=== PATIENT | female | born 1965 | race Caucasian/White ===

== ENCOUNTER 2019-07-26 17:41 | Emergency (ER) | payer BC, SELFPAY ==
--- NOTE | ~2019-07-26 | XR_ITS ---
EXAMINATION: XR chest 2V DATE: 07/26/2019 18:04 INDICATION: 10 days of nonproductive cough TECHNIQUE: PA and lateral views of the chest were obtained. COMPARISON: Chest radiograph dated 06/19/2017 FINDINGS: The lungs are clear with no focal airspace opacities, pulmonary edema, pleural effusion or pneumothor ax. The cardiomediastinal silhouette is normal. Cholecystectomy clips in the right upper quadrant. Ad justable gastric banding procedure in expected position in the left epigastric region. Suture anchors likely related to rotator cuff repair at the right humeral head. Couple surgical clips at the base o f the neck adjacent to indication for anterior spinal fusion at the lower cervical spine. IMPRESSION: 1. No acute cardiopulmonary disease. 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
[2019-07-26 17:50] VITALS: BP 128/82; PULSE 108; RESP 20; TEMP 36.8; O2SAT 100
--- NOTE | 2019-07-26 17:51 | ED.URI ---
HPI - URI/Sore Throat General Chief Complaint: Upper Respiratory Infection Stated Complaint: cough/congestion Time Seen by Provider: 07/26/19 17:51 Source: patient Mode of arrival: ambulatory Limitations: no limitations History of Present Illness HPI Narrative: Vanesa Luna is a 54 yo female with a PMH of HTN, diabetes, who comes to express care with complaints of cough and muscle pain. States was ill 10 days ago and started he a little better but now has relapsed and is taking Mucinex NyQuil and ibuprofen with no effect Related Data Home Medications Medication Instructions Recorded Confirmed amitriptyline 10 mg DAILY 07/26/19 07/26/19 atorvastatin 40 mg DAILY 07/26/19 07/26/19 canagliflozin [Invokana] 300 mg DAILY 07/26/19 07/26/19 escitalopram oxalate 20 mg DAILY 07/26/19 07/26/19 gabapentin 300 mg TID 07/26/19 07/26/19 glipizide 14 mg DAILY 07/26/19 07/26/19 levothyroxine 88 mcg DAILY 07/26/19 07/26/19 omeprazole 20 mg DAILY 07/26/19 07/26/19 quinapril 10 mg DAILY 07/26/19 07/26/19 triamterene-hydrochlorothiazid 1 cap DAILY 07/26/19 07/26/19 Allergies Allergy/AdvReac Type Severity Reaction Status Date / Time codeine Allergy Mild Verified 05/09/17 13:46 clarithromycin Allergy Unknown Verified 11/27/18 10:40 metformin Allergy Unknown Verified 11/27/18 10:40 Review of Systems Review of Systems: Narrative: CONSTITUTIONAL: Denies fever, chills, sweats. EYES: Denies visual changes, redness, discharge. ENT: Has rhinorrhea, congestion, sore throat, no otalgia. CARDIOVASCULAR: Denies chest pain, palpitations, edema. RESPIRATORY: Denies dyspnea, wheezing, has cough GASTROINTESTINAL: Denies abdominal pain, nausea, vomiting, diarrhea. GENITOURINARY: Denies dysuria, hematuria, abnormal discharge SKIN: Denies rash or itching. NEUROLOGIC: Denies numbness, or focal weakness. PSYCHIATRIC: Denies anxiety or depression. FORMERLY [facility], 1928–1983 Family History Family History Sibling Diabetes mellitus Mother Hypertension Father Family history of malignant neoplasm Social History Social History (Updated 07/26/19 @ 18:02 by Kimberli Stevenson CNP) Smoking status: Never smoker Alcohol intake: current Gender identity (if verbalized by the patient): Female Comments At time of signature, I agree with nursing past medical, surgical, social and family history. There is no relevant family history pertinent to the presenting complaint. Exam Narrative: Exam Narrative: GENERAL: This is a well-nourished, well-developed patient, in mild distress. HEAD: normocephalic, atraumatic. EYES:Sclera clear/white. Vision is grossly intact. EARS: External ears normal, . Hearing grossly intact. NOSE: External nose normal with no obvious nasal discharge, nares without redness, no rhinorrhea. THROAT: Mucous membranes moist, posterior pharynx erythema with swelling NECK: Neck supple, non-tender without lymphadenopathy, CARDIOVASCULAR: Regular rate and rhythm without murmurs, gallops, or rubs. RESPIRATORY: Coarse to auscultation. Breath sounds equal bilaterally. Mildly wheezes, rales, or rhonchi. Dry hacking cough GASTROINTESTINAL: Abdomen soft, non-tender, SKIN: warm, intact with no suspicious lesions or rash, good texture and turgor. NEURO: awake, alert, and oriented to person, place and time. There were no obvious focal neurologic abnormalities. Steady gait EXTREMITIES: Normal range of motion. No edema. BACK: Nontender without deformity . Course Course Emergency Course: Chest x-ray Flu swab Vital Signs Vital signs: Vital Signs Temperature 98.2 F 07/26/19 17:50 Pulse Rate 108 H 07/26/19 17:50 Respiratory Rate 07/26/19 17:50 Blood Pressure 128/82 07/26/19 17:50 Pulse Oximetry 100 07/26/19 17:50 Temperature 98.2 F 07/26/19 17:50 Pulse Rate 108 H 07/26/19 17:50 Respiratory Rate 07/26/19 17:50 Blood Pressure 128/82 07/26/19 17:50 Pulse Oximetry 1
== END 2019-07-26 18:30 | disposition home or self-care (01) ==
PROVIDERS: Emergency Provider Nurse Practitioner
DX: J06.9 Acute upper respiratory infection, unspecified (principal); E78.00 Pure hypercholesterolemia, unspecified; I10 Essential (primary) hypertension; K21.9 Gastro-esophageal reflux disease without esophagitis; E11.9 Type 2 diabetes mellitus without complications; F41.9 Anxiety disorder, unspecified; F32.9 Major depressive disorder, single episode, unspecified
CPT/HCPCS: 71046; 87804; 99213; G0463

== ENCOUNTER → 2020-12-13 12:27 | Outpatient (CLI) | payer BC, SELFPAY ==
--- NOTE | ~2020-12-13 | MR_ITS ---
EXAMINATION: MR thoracic spine wo con EXAM DATE: 12/13/2020 13:43 INDICATION: Acute right sided thoracic back pain . TECHNIQUE: Multi-sequential, multiplanar MR images of the thoracic spine were obtained without contra st. Sagittal T1, T2, T2 fat saturation, axial T2 weighted images reviewed. There is no prior study for comparison. FINDINGS: Mild diffuse thoracic disc disease. The central canal and neural foramen are widely patent. There are no suspicious marrow signal abnormalities. Paraspinal soft tissue is unremarkable. The chad tebral bodies are aligned in the AP dimension. Mild thoracic facet arthropathy. Lower cervical interb ramy device. IMPRESSION: Mild thoracic spondylosis. No acute findings. Reviewed, dictated and finalized at location A.
== END ==
PROVIDERS: PCP Nurse Practitioner Family; Visit Provider Pediatrics
DX: M47.894 Other spondylosis, thoracic region (principal)
CPT/HCPCS: 72146

== ENCOUNTER 2022-07-13 14:47 | Emergency (ER) | payer OTHER, BC, SELFPAY ==
--- NOTE | ~2022-07-13 | XR_ITS ---
EXAMINATION: XR knee RT min 4V DATE: 07/13/2022 15:22 INDICATION: Right knee pain TECHNIQUE: Four views of the right knee were obtained. COMPARISON: None. FINDINGS: Alignment is normal. No fracture or osteochondral lesion. There is mild tricompartmental os teoarthritis characterized by tiny marginal osteophytes. There is mild chondrocalcinosis of the menis ci. Soft tissues are unremarkable. IMPRESSION: 1. No acute osseous abnormality. Reviewed, dictated and finalized at location A. 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
[2022-07-13 15:00] VITALS: BP 122/88; PULSE 98; RESP 18; TEMP 36.3; O2SAT 98
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
== END 2022-07-13 15:37 | disposition home or self-care (01) ==
PROVIDERS: Emergency Provider Nurse Practitioner Family; PCP Nurse Practitioner Family
DX: M25.561 Pain in right knee (principal); E11.9 Type 2 diabetes mellitus without complications; I10 Essential (primary) hypertension; Z79.4 Long term (current) use of insulin
CPT/HCPCS: 73564; 99213; G0463

== ENCOUNTER 2023-12-03 10:42 | Outpatient (CLI) | payer BC, SELFPAY ==
--- NOTE | ~2023-12-03 | US_ITS ---
EXAMINATION: US thyroid DATE: 12/03/2023 10:58 INDICATION: Goiter. TECHNIQUE: Multiple ultrasound images of the thyroid were obtained. COMPARISON: None. FINDINGS: The right thyroid lobe measures 4.6 x 1.8 x 1.3 cm. The left thyroid lobe measures 4.4 x 1.5 x 1.2 c m. There is a 3 mm nodule in right thyroid lobe. IMPRESSION: 1. Small nodule in right thyroid lobe, likely not clinically significant. No follow-up is needed. Reviewed, dictated and finalized at location E. IMPRESSION: 1. Small nodule in right thyroid lobe, likely not clinically significant. No fo llow-up is needed.
== END 2023-12-03 10:43 ==
LOC: MICIMG 10:43
PROVIDERS: PCP Internal Medicine; Visit Provider Internal Medicine
DX: E04.1 Nontoxic single thyroid nodule (principal)
CPT/HCPCS: 76536

== ENCOUNTER 2024-08-14 12:34 | Outpatient (CLI) | payer BC, SELFPAY ==
--- NOTE | ~2024-08-14 | MR_ITS ---
MRI of the right shoulder Technique: Axial proton-density fat-sat images, coronal proton density fat-sat and T2 fat-sat images, and sagittal T1-weighted and T2 fat-sat images were acquired. Clinical History: Pain Findings: Prior subacromial decompression and/or resection of the distal clavicle. Coracoclavicular a nd coracohumeral ligaments appear intact. Coracoacromial ligament probably intact. Suture anchors the humeral head are compatible prior rotator cuff repair surgery. There are complete, full-thickness tears of the entire supraspinatus and infraspinatus tendons, which are retracted to t he medial humeral head. Fluid-filled gap measures up to approximately 4.0 x 4.2 cm in extent. The ret racted infraspinatus tendon is markedly hyperintense and frayed Subscapularis tendon is intact with m ild tendinosis. Tendon of the long head of the biceps is intact. No definite labral tear seen. Inferior glenohumeral ligament is intact. Humeral head is mildly high riding. There is glenohumeral j oint effusion, with fluid passing through the large rotator cuff defect into the subacromial/subdelto id bursa. There is minimal chondromalacia of the humeral head. No muscle atrophy evident. Impression: Complete, full-thickness tears of the supraspinatus and infraspinatus tendons, as detailed above. Melly dence of prior rotator cuff repair surgery with suture anchors at the humeral head. Prior subacromial decompression and/or distal clavicular resection. Reviewed, dictated and finalized at location . Impression: Complete, full-thickness tears of the supraspinatus and infraspinatus tendons, as detailed above. Evidence of prior rotator cuff repair surgery with suture an chors at the humeral head. Prior subacromial decompression and/or distal clavicular resection.
== END 2024-08-14 12:35 | disposition home or self-care (01) ==
PROVIDERS: PCP Orthopaedic Surgery; Visit Provider Orthopaedic Surgery
DX: M75.121 Complete rotator cuff tear or rupture of right shoulder, not specified as traumatic (principal)
CPT/HCPCS: 73221

== ENCOUNTER 2024-09-22 11:12 | Emergency (ER) | payer OTHER, BC, SELFPAY ==
--- NOTE | ~2024-09-22 | CT_ITS ---
CT lumbar spine wo con Ordering provider: Kasey Sam History: 59 years Female with . low back pain, fall . Comparison: None. Technique: CT lumbar spine without contrast. Automated exposure control and iterative reconstruction technique were employed. The dose-length product was 1131.73 mGy-cm. FINDINGS: VERTEBRAE: Normal height and alignment. No subluxation or visible acute fracture. Postoperative fisher es at the level of L4-L5. Cemented is seen in the area of the disc space with vacuum phenomena. Degen erative changes of the spine. DISC SPACES: Narrowing of the disc L5-S1 and L4-L5. Facet joint disease at the level of L2-L3. Bilateral facet joint disease at the level of L3-L4. T12-L1: No stenosis. L1-L2: No stenosis. L2-L3: No stenosis. Mild diffuse disc bulge. L3-L4: No stenosis. Mild diffuse disc bulge. L4-L5: Mild spinal canal stenosis secondary to broad based disc bulge, facet arthropathy, and ligame ntum flavum hypertrophy. L5-S1: No stenosis. PARASPINOUS SOFT TISSUES: Mild atheromatous disease of the abdominal aorta. IMPRESSION: Multilevel degenerative disc disease. No acute osseous abnormality. Reviewed, dictated and finalized at location A.
--- NOTE | ~2024-09-22 | CT_ITS ---
CT brain wo con Ordering provider: Kasey Sam PA-C History: 59 years Female with . headache, head injury . Comparison: None. Technique: CT of the head without contrast. Radiation reduction technique utilized.The dose-length pr oduct was 605.33 mGy-cm. FINDINGS: BRAIN PARENCHYMA AND CSF SPACES: Mild leukoaraiosis and diffuse cortical atrophy. Mild atheromatous d isease. No midline shift, mass effect or hemorrhage. The brain parenchyma and CSF spaces are otherwi se normal. VISUALIZED PARANASAL SINUSES: Well aerated. MASTOIDS: Well aerated. BONES: The bones appear intact. SOFT TISSUES: Visualized nasopharynx is normal. Superficial soft tissues are normal. IMPRESSION: No acute intracranial findings. Reviewed, dictated and finalized at location A.
[2024-09-22 11:31] VITALS: BP 140/79; PULSE 96; RESP 19; TEMP 36.6; O2SAT 100
--- OUTSIDE RECORDS SUMMARY | 2024-09-22 13:08 | XMS_ITS | Encounter Summary ---
Author Organization [facility] Address [address] [place] [id number] Care Team Providers Care Superintendent Distribution Name Role Phone Ulisses Minor MD Primary Care Provide r Ulisses Minor MD Primary Care Provide r Ulisses Minor MD Primary Care Provide r Ulisses Minor MD Primary Care Provide r Encounter Details Date Type Department Care Team (Late st Contact Info) Description 12/29/[address] [facility] Conversion , Generic Conversion, Social History Tobacco Use Types Packs/Day Years Used Date Smoking Tobacco: Never Assessed Comments Unknown Sex and Gender Information Value Date Recorded Sex Assigned at Female 08/11/2024 9:45 AM CDT Legal Sex Female 8:33 PM CDT Gender Identity Not on file Sexual Orientation Not on file documented as of this encounter Plan of Treatment Not on file documented as of this encounter Visit Diagnoses Not on filedocumented in this encounter Additional Health Concerns Infection Onset Date Last Indicated Resolved Time Influenza - Seasonal 07/13/2023 07/13/2023 024 12:32 AM AUTHORIZATION COORDINATOR documented as of this encounter Care Teams Superintendent Distribution Relationship Specialty [place] [address] [place] [id number] PCP - General 12/12/16 [place] [address] [place] [address] PCP - General 12/07/16 12/11/16 [place] [address] [place] [id number] PCP - General 08/22/16 12/06/16 [place] [address] [place] [id number] PCP - General 07/17/16 08/21/16 documented as of this encounter
--- OUTSIDE RECORDS SUMMARY | 2024-09-22 13:08 | XMS_ITS | Encounter Summary ---
Author Organization [facility] Address [address] [place] [address] Care Team Providers Care B2B Sales Professional Name Role Phone Ulisses Minor MD Primary Care Provide r Encounter Details Date Type Department Care Team (Late st Contact Info) Description 08/14/2024 [facility] Message [place] [id number] [place] [address] [facility] Provider Prednisone Social History Tobacco Use Types Packs/Day Years Used Date Smoking Tobacco: Never Passive Smoke Exposure: Past Smokeless Tobacco: Never Alcohol Use Standard Drinks/Week Comments Not Currently 0 (1 standard drink = 0.6 oz pur e alcohol) rarely PHQ-2 Answer Date Recorded Patient Health Questionnaire-2 Score 0 08/11/2024 Comments No Sex and Gender Information Value Date Recorded Sex Assigned at Female 08/11/2024 9:45 AM CDT Legal Sex Female 8:33 PM CDT Gender Identity Not on file Sexual Orientation Not on file documented as of this encounter Functional Status * RETIRED Are you deaf or do you have serious difficulty hearing Answer Date of Assessment Author Status No 05/10/2020 5:51 PM MILITARY EDUCATION COORDINATOR Activ e * RETIRED Are you blind or do you have serious difficulty seeing, even when wearing glasses? Answer Date of Assessment Author Status No 05/10/2020 5:51 PM MILITARY EDUCATION COORDINATOR Activ e * Do you have serious difficulty walking or climbing stairs? Answer Date of Assessment Author Status No 05/10/2020 5:51 PM MILITARY EDUCATION COORDINATOR MensingSavita RN Active * Do you have difficulty dressing or bathing? Answer Date of Assessment Author Status No 05/10/2020 5:51 PM Savita Martínez RN Active * Because of a physical, mental, or emotional condition, do you have difficulty doing errands alone such as visiting a doctor's office or shopping? Answer Date of Assessment Author Status No 05/10/2020 5:51 PM Savita Martínez RN Active documented as of this encounter Mental Status * Because of a physical, mental, or emotional condition, do you have serious difficulty concentrating, remembering, or making decisions? Answer Entry Date Author Status No 05/10/2020 5:51 PM Savita Martínez RN Active documented in this encounter Plan of Treatment Not on file documented as of this encounter Visit Diagnoses Not on filedocumented in this encounter Additional Health Concerns Assessment Noted Time PHQ-9 Depression Total Score: 0 08/13/19 22 10:52 AM CDT documented as of this encounter Care Teams B2B Sales Professional Relationship Specialty [place] [address] [facility] [address] [place] [id number] PCP - General 12/12/16 documented as of this encounter
--- OUTSIDE RECORDS SUMMARY | 2024-09-22 13:08 | XMS_ITS | Encounter Summary ---
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
--- OUTSIDE RECORDS SUMMARY | 2024-09-22 13:08 | XMS_ITS | Clinical Summary ---
Author Organization [facility] Address [address] [place] [id number] Care Team Providers Care Learning Development Specialist Name Role Phone Ulisses Minor MD Primary Care Provide r Allergies Active Allergy Reactions Criticality Noted Date Comments Clarithromycin Diarrhea,Nausea and Vomiting Clarithromycin Diarrhea,Nausea and Vomiting Low Gatifloxacin Diarrhea,Nausea and Vomiting Low 12/19 Metformin Diarrhea,Nausea and Vomiting,Unknown 12/20/2015 Medications multivitamin tablet Take 1 tablet by mouth daily. Active acetaminophen 325 MG tablet Take 2 tablets (650 mg total) by mouth every 4 (four) hours as needed for Fever. 30 tablet 020 Active Blood Glucose Monitoring Suppl (ONE TOUCH ULTRA 2) w/Device KitIndications:T ype 2 diabetes mellitus with hyperglycemia, with long-term current use of insulin ([facility]) 1 each by Does not apply route daily. 1 kit 022 Active Insulin Pen Needle (PEN NEEDLES) 31G X 8 MM MiscIndications: Type 2 diabetes mellitus with diabetic polyneuropathy, with long-term current use of insulin ([facility]) 1 each by Does not apply route 4 (four) times a day. 400 each 3 022 Active triamcinolone 0.1 % cream as needed. 022 Active albuterol sulfate HFA 108 (90 Base) MCG/ACT inhalerIndicatio ns:Acute bronchitis, unspecified organism Inhale 2 puffs into the lungs every 4 (four) hours as needed for Wheezing. 18 g 2 023 Active cyclobenzaprine (FLEXERIL) 10 MG tabletIndication s:Spinal stenosis of lumbar region with neurogenic claudication Take 1 tablet (10 mg total) by mouth 3 (three) times daily as needed. 90 tablet 3 023 Active fluticasone propionate (FLONASE) 50 MCG/ACT nasal sprayIndications :Nasal congestion 2 sprays by Nasal route daily. 16 g 11 024 Active HYRIMOZ 40 MG/0.4ML Solution Auto-injector every 14 (fourteen) days. 024 Active methotrexate (TREXALL) 2.5 MG tablet Take 3 tablets (7.5 mg total) by mouth once a week. 024 Active traMADol (ULTRAM) 50 MG tabletIndication s:Spinal stenosis of lumbar region with neurogenic claudication TAKE 1 TABLET BY MOUTH EVERY 6 HOURS NEEDED FOR CHRONIC PAIN 60 tablet 3 024 Active Additional Information Patient not taking.Reported on 09/10/2024 atorvastatin (LIPITOR) 40 MG tabletIndication s:Mixed hyperlipidemia take 1 tablet by mouth every day 90 tablet 3 024 Active omeprazole (PRILOSEC) 20 MG capsuleIndicatio ns:Gastroesophag eal reflux disease without esophagitis take 1 capsule by mouth every day 90 capsule 3 024 Active triamterene-hydr oCHLOROthiazide (DYAZIDE) 37.5-25 MG capsuleIndicatio ns:Essential hypertension take 1 capsule by mouth every day 90 capsule 2 024 Active TOUJEO SOLOSTAR 300 UNIT/ML Solution Pen-injectorIndi cations:Type 2 diabetes mellitus with diabetic polyneuropathy, with long-term current use of insulin (CMS/HCC HHS/HCC) INJECT 90 UNITS INTO THE SKIN NIGHTLY AT BEDTIME. 27 mL 3 024 Active lisinopril (PRINIVIL) 10 MG tabletIndication s:Essential hypertension take 1 tablet by mouth every day 90 tablet 3 024 Active escitalopram (LEXAPRO) 20 MG tabletIndication s:Anxiety state TAKE 1 TABLET BY MOUTH EVERY DAY 90 tablet 1 024 Active Insulin Aspart (NOVOLOG IJ) Inject 3 mLs as directed. Sliding scale Active levothyroxine (SYNTHROID) 88 MCG tabletIndication s:Acquired hypothyroidism TAKE 1 TABLET BY MOUTH EVERY DAY IN THE MORNING 90 tablet 1 024 Active amitriptyline (ELAVIL) 25 MG tabletIndication s:Primary insomnia Take 1 tablet (25 mg total) by mouth nightly at bedtime. 90 tablet 3 024 Active hydroxychloroqui ne (PLAQUENIL) 200 MG tabletIndication s:Rheumatoid arthritis with rheumatoid factor of right hand without organ or systems involvement ([facility]) TAKE 1 TABLET BY MOUTH TWICE A DAY 180 tablet 1 025 Active HYDROcodone-acet aminophen (NORCO) 5-325 MG tabletIndication s:Acute Pain < 3 Day Supply Take 1 tablet by mouth every 6 (six) hours as needed for Pain. Indications: Acute Pain < 3 Day Supply 10 tablet 025 Active Additional Information Patient not taking.Reported on 09/10/2024 MOUNJARO 12.5 MG/0.5ML injection 12.5 MG (0.5 ML) SUBCUTANEOUSLY WEEKLY 025 Active HYDROcodone-acet aminophen (NORCO) 5-325 MG tabletIndication s:Acute Pain < 7 Day Supply Take 1 tablet by mouth every 4 (four) hours as needed for Pain. Indications: Acute Pain < 7 Day Supply 40 tablet 025 Active Additional Information Patient not taking.Reported on 09/10/2024 naloxone (NARCAN) 4 MG/0.1ML nasal sprayIndications :Acute pain of right shoulder 1 spray by Nasal route as needed for Opioid reversal. may repeat every 2 to 3 minutes in alternating nostrils until medical assistance becomes available 1 each 025 2025 Active Additional Information Patient not taking.Reported on 09/10/2024 guaiFENesin-code ine (GUAIFENESIN AC) 100-10 MG/5ML syrupIndications :Bronchitis Take 5 mLs by mouth every 4 (four) hours as needed for Cough. Indications: Bronchitis 240 mL 025 Active folic acid (FOLVITE) 1 MG tablet Take 1 tablet (1 mg total) by mouth daily. Active ONETOUCH ULTRA test stripIndications :Type 2 diabetes mellitus with diabetic polyneuropathy, with long-term current use of insulin ([facility]) USE TO TEST THREE TIMES DAILY FOR DIABETES 300 strip 5 025 Active gabapentin (NEURONTIN) 600 MG tabletIndication s:Spinal stenosis of lumbar region with neurogenic claudication Take 1 tablet (600 mg total) by mouth 3 (three) times daily. 270 tablet 3 023 2024 Discontinued(T herapy completed) Glucose Blood (Smart EyeTOUCH ULTRA) test stripIndications :Type 2 diabetes mellitus with diabetic polyneuropathy, with long-term current use of insulin ([facility]) USE TO TEST THREE TIMES DAILY FOR DIABETES 300 strip 5 024 2024 Discontinued predniSONE (DELTASONE) 10 mg tabletIndication s:Rheumatoid arthritis involving both hands with positive rheumatoid factor ([facility]) TAKE 1 TABLET BY MOUTH EVERY DAY 30 tablet 025 2024 Discontinued(T herapy completed) cefdinir (OMNICEF) 300 MG Cap capsuleIndicatio ns:Acute non-recurrent maxillary sinusitis,Acute bronchitis, unspecified organism Take 1 capsule (300 mg total) by mouth 2 (two) times daily for 14 days. 28 capsule 025 2024 guaiFENesin-code ine (GUAIFENESIN AC) 100-10 MG/5ML syrupIndications :Bronchitis Take 5 mLs by mouth every 4 (four) hours as needed for Cough. Indications: Bronchitis 240 mL 025 2024 Discontinued(R douger) fluconazole (DIFLUCAN) 100 MG tabletIndication s:Vaginal yeast infection Take 1 tablet (100 mg total) by mouth daily for 7 days. 7 tablet 025 2024 predniSONE (DELTASONE) 10 mg tabletIndication s:Acute non-recurrent maxillary sinusitis,Acute bronchitis, unspecified organism Take 1 tablet (10 mg total) by mouth daily for 7 days. 7 tablet 025 2024 doxycycline hyclate (VIBRAMYCIN) 100 MG capsuleIndicatio ns:Acute non-recurrent maxillary sinusitis,Acute bronchitis, unspecified organism Take 1 capsule (100 mg total) by mouth 2 (two) times daily for 14 days. 28 capsule 025 2024 Active Problems Problem Noted Date Diagnosed Date Rheumatoid arthritis involvi ng multiple sites with positive rheumatoid factor ([facility]) 12/24/2023 Spondylolisthesis of lumbar region 06/21/2023 Other intervertebral disc degeneration, lumbar r egion 06/21/2023 Other intervertebral disc displacement, lumbar r egion 06/21/2023 Foraminal stenosis of lumbar region 06/21/2023 Radiculopathy, lumbar region 06/21/2023 Spinal stenosis of lumbar re gion with neurogenic claudication 06/21/2023 Acute bilateral low back pain with left-sided sc iatica 03/03/2022 Psoriatic arthritis ([facility]) 06/20/2021 COVID-19 05/10/2020 S/P cervical spinal fusion 11/05/2018 Right arm pain 11/05/2018 Breast mass in female 01/02/2018 Hemangioma of liver 01/02/2018 Overview (08/13/2020): Overview: Added automatically from request for surgery [id number] Added automatically from request for surgery [id number] Liver mass 01/02/2018 Myofascial pain 04/25/2017 Cervical radiculopathy 09/27/2016 Foraminal stenosis of cervical region 09/27/2016 Cervical osteophyte 06/14/2016 Muscle spasm 06/14/2016 Sciatica 09/28/2014 Overview (09/19/2023): Sciatica Sciatica Allergic rhinitis due to pollen 09/15/2014 Overview (09/19/2023): Allergic rhinitis due to pollen Allergic rhinitis due to pollen Anxiety state 10/19/2013 Overview (09/19/2023): Anxiety state, unspecified Anxiety state, unspecified Mixed hyperlipidemia 06/18/2013 Overview (06/06/2018): Mixed hyperlipidemia Benign essential hypertension 01/14/2012 Overview (09/19/2023): Benign essential hypertension Benign essential hypertension GERD (gastroesophageal reflux disease) 1 Hypothyroidism (acquired) 03/06/2011 Overview (09/19/2023): Hypothyroidism, unspecified Hypothyroidism, unspecified Type 2 diabetes mellitus wit h hyperglycemia, with long-term current use of insulin ([facility]) 03/06/2011 Overview (05/30/2018): Type 2 diabetes mellitus without complications Morbid obesity 03/06/2011 Hiatal hernia 03/06/2011 DM (diabetes mellitus) ([facility]) 011 Resolved Problems Problem Noted Date Diagnosed Date Resolved Date HTN (hypertension) 03/06/2011 4 High blood cholesterol 03/06/201112/23 Encounters Date Type Department Care Team Description 09/10/2024 1:15 PM CDT Office Visit [facility] [id number] [place] [phone] Faheem Valero MD Consult (Elevated calcium score); Lipids 09/10/2024 Travel 09/01/2024 3:00 PM CDT Office Visit [facility] [address] [place] [phone] Gerda Minor FNP Follow Up (Cough. Finished antibiotics and only seen 30-40 %. Has worsened the past 4-5 days. Taking Robitussin DM and Guaifenesin AC. ) 09/01/2024 Travel 08/14/[address] [facility] [address] [place] [phone] [facility] Provider Prednisone 08/11/2024 1:[address] [facility] [address] [place] [phone] Gerda Minor FNP Sore Throat (Symptoms x at least 3 days. ); Cough (Using inhaler. Using Day/NyQuil. ); Wheezing ; Body Aches 08/11/2024 7:39 AM CDT - 08/11/2024 9:25 AM CDT Emergency [facility] Emergency Room [address] [place] [address] Deejay Toledo MD Shoulder Pain Discharge Disposition: Home or Self Care (Routine Discharge) 08/11/2024 Travel 08/08/[address] [facility] [address] [place] [phone] Gerda Minor FNP 07/17/[address] [facility] [address] [place] [phone] Ulisses Minor MD Referral 07/10/2024 8:40 AM PLATE STRAIGHTENER - 07/10/2024 11:59 PM PLATE STRAIGHTENER Hospital Encounter [facility] [address] [place] [address] Rosangela Clayton MD Discharge Disposition: Home or Self Care (Routine Discharge) 07/10/2024 Orders Only [facility] [address] [place] [address] Rosangela Clayton MD 07/10/2024 Travel 06/26/2024 Telephone [facility] on [facility], [address] [address] Yvette Albrecht RMA Consult (/) 06/25/[address] [facility] [address] [place] [phone] Gerda Minor FNP Results from Last 3 Months Immunizations Immunization Administration Dates Next Due FLUCELVAX (ccIIV3, TRIVALENT, 0.5mL) 03/17/2024 Fluzone 6 Months+ Quad (0.5 mL Prefilled Syringe) 03/03/2022,03/10/2021 Hepatitis B 12/01/2003,06/16/2003,05/12/2003 Influenza (Generic) 02/09/2011 Influenza Adult (Generic) 03/21/2023,,02/03/2020,2018,02/20/2018,02/19/2018,02/19/2017,0 02/18/2017,02/23/2016,02/22/2015, 014 MODERNA COVID-19 (12+) MRNA, LNP-S, PF, 100 MCG/ 0.5 ML DOSE 08/07/2020,07/10/2020 MODERNA COVID-19 (COMPUTER HARDWARE TECHNICIAN EMANI ABY), MRNA, LNP-S, PF, 50 MCG/ 0.25 ML DOSE 04/19/2021 Pneumococcal (Pneumovax 23) 05/11/2011 Tdap (Adacel) 05/17/2014 Tdap (Boostrix) 08/11/2024,11/21/2018 Family History Medical History Relation Comments Hypertension Brother Arthritis Father Cancer Father Early Father Breast Cancer Maternal Aunt 1 Breast Cancer Maternal Aunt 2 Breast Cancer Maternal Aunt 3 Diabetes Maternal Grandfather Stroke Maternal Grandfather Diabetes Maternal Grandmother Heart Attack Maternal Grandmother Aneurysm Mother Diabetes Mother Hypertension Mother Stroke Mother Diabetes Paternal Grandfather Stroke Paternal Grandfather Diabetes Paternal Grandmother Heart Attack Paternal Grandmother Diabetes Sister 1 Hypertension Sister 1 Heart Attack Sister 2 Stent Cardiac Sister 2 Relation Status Comments Brother Father Maternal Aunt 1 Maternal Aunt 2 Maternal Aunt 3 Maternal Grandfather Maternal Grandmother Mother Paternal Grandfather Paternal Grandmother Sister 1 Sister 2 Alive Social History Tobacco Use Types Packs/Day Years Used Date Smoking Tobacco: Never Passive Smoke Exposure: Past Smokeless Tobacco: Never Tobacco Cessation:Counseling Given: Not Answered Alcohol Use Standard Drinks/Week Comments Yes 1.7 (1 standard drink = 0.6 oz p ure alcohol) rarely PHQ-2 Answer Date Recorded Patient Health Questionnaire-2 Score 0 09/01/2024 Comments No Sex and Gender Information Value Date Recorded Sex Assigned at Female 08/11/2024 9:45 AM CDT Legal Sex Female 8:33 PM CDT Gender Identity Not on file Sexual Orientation Not on file Last Filed Vital Signs Vital Sign Reading Time Taken Comments Blood Pressure 130/80 09/10/2024 1:01 PM CDT Pulse 85 09/10/2024 1:01 PM CDT Temperature 36.9 C (98.4 F) 09/01/2024 2:48 PM CDT Respiratory Rate 20 09/01/2024 2:48 PM CDT Oxygen Saturation 100% 09/01/2024 2:48 PM CDT Inhaled Oxygen Concentration - - Weight 106.1 kg (234 lb) 09/10/2024 1:01 PM CDT Height 165.1 cm (5' 5 ) 09/10/2024 1:01 PM CDT Body Mass Index 38.94 09/10/2024 1:01 PM CDT Plan of Treatment Health Maintenance Due Date Last Done Comments Kidney Health Evaluation 1965 Pneumococcal Vaccine: 50+ Years (2 of 2 - PCV) 05/11/2012 05/11/2011 Zoster Vaccines (1 of 2) 2016 COVID-19 Vaccine ( - season) 2024 04/19/2021, 08/07/2020, 07/10/2020 Hemoglobin A1C 06/25/2024 12/24/2023, 0210/2023, 03/09/2023, Additional history exists Lipid Panel 07/24/2024 07/24/2023, 08/0 08/2022, 11/18/2021, Additional history exists Annual Physical 12/23/2024 12/24/2023 Diabetes: Retinopathy Eye Exam 02/27/2025 02/28/2024, 02/16/2022, 02/17/2021, Additional history exists Mammogram Screening 12/27/2025 12/28/2023, 11/25/2021, 09/20/2020, Additional history exists Colorectal Cancer Screening FIT-DNA (3 Years) 01/08/2026 01/08/2023, 01/08/2023 DTaP, Tdap and Td Vaccines (4 - Td or Tdap) 08/11/2034 08/11/2024, 11/21/2018, 05/17/2014 Hepatitis B Vaccines Completed 12/01/2003, 06/16/2003, 05/12/2003 Hepatitis C Completed 09/06/2023, 06/20/2021 PHQ-2 (Physician [place]) Completed 09/01/2024 Meningococcal B Vaccine Aged Out No l onger eligible based on patient's age to complete this topic Meningococcal Vaccine Aged Out No leonardo apolonia eligible based on patient's age to complete this topic RSV Immunizations Under 20 Months Aged Out No longer eligible based on patient's age to complete this topic Procedures Procedure Name Priority Date/Time Associated Diagnosis Comments ELECTROCARDIOGRAM (NON MIDMARK ACQUIRED) Routine 09/10/2024 1:19 PM CDT Abnormal Heart Score CT XR SHOULDER RT 3V STAT 08/11/2024 8:2 2 AM CDT C-REACTIVE PROTEIN Routine 07/10/2024 8: 48 AM PLATE STRAIGHTENER Encounter for medication monitoring RA (rheumatoid arthritis) ([facility]) SED RATE, ERYTHROCYTE (ESR) Routine 07/10/2024 8:48 AM PLATE STRAIGHTENER Encounter for medication monitoring RA (rheumatoid arthritis) ([facility] HHS/HCC) HC BUN Routine 07/10/2024 8:48 AM PLATE STRAIGHTENER Encounter for medication monitoring RA (rheumatoid arthritis) ([facility] HHS/HCC) HEPATIC FUNCTION PANEL Routine 8:48 AM PLATE STRAIGHTENER Encounter for medication monitoring RA (rheumatoid arthritis) ([facility] HHS/HCC) CBC W/DIFF AUTOMATED Routine 07/10/2024 8:48 AM PLATE STRAIGHTENER Encounter for medication monitoring RA (rheumatoid arthritis) ([facility] HHS/HCC) DIABETIC RETINOPATHY EXAM (POSITIVE)(SCAN ORDER) Routine 02/28/2024 MG SCREENING W ARACELI MEI DIGI Routine 12/28/2023 2:06 PM CDT Encounter for screening mammogram for malignant neoplasm of breast HEMOGLOBIN, GLYCOSYLATED Routine 12/24/2023 Type 2 diabetes mellitus with diabetic polyneuropathy, with long-term current use of insulin HEPATITIS C ANTIBODY Routine 09/06/2023 3:19 PM CDT Encounter for medication monitoring RA (rheumatoid arthritis) LIPID PANEL Routine 07/24/2023 7:46 AM PLATE STRAIGHTENER COLOGUARD (EXACT SCIENCE) Routine 2022 11:30 AM CDT Colon cancer screening from Last 3 Months or Most Recently Relevant to Health Maintenance Results * ELECTROCARDIOGRAM (09/10/2024 1:19 PM CDT) 09/10/2024 1:19 PM CDT Narrative [facility] - 09/10/2024 7:32 PM CDT [facility] Test Date: 2024-09-10 Pat Name: VANESA LUNA Department: 107 Room: Gender: Female Quality Assurance Calibrator: [email or web address] : 1965 Requested By: FAHEEM VALERO Order Number: [id number] Reading : Faheem Valero Measurements Intervals [place] Rate: 87 P: 52 RI: 164 QRS: 25 QRSD: 93 T: 50 QT: 366 QTc: 442 Interpretive Statements SINUS RHYTHM Procedure Note Faheem Valero MD - 09/10/[address] [facility] Test Date: 2024-09-10 Pat Name: VANESA LUNA Department: 107 Room: Gender: Female Quality Assurance Calibrator: agnieszka : 1965 Requested By: FAHEEM VALERO Order Number: [id number] Reading : Faheem Valero Measurements Intervals [place] Rate: 87 P: 52 RI: 164 QRS: 25 QRSD: 93 T: 50 QT: 366 QTc: 442 Interpretive Statements SINUS RHYTHM us Faheem Valero MD PROCEDURES-ORDERABLE NO CHARGE Final Result RICHMOND PEDROZA * XR SHOULDER RT 3V (08/11/2024 8:22 AM CDT) Anatomical Region Laterality Modality Shoulder Radiographic Lauren ging 08/11/2024 8:39 AM CDT Impressions 08/11/2024 8:40 AM CDT IMPRESSION: 1. No acute findings Ordered By: DEEJAY TOLEDO Interpreted By: Katina Rodriguez, 08/11/2024 8:39 AM Narrative 08/11/2024 8:40 AM CDT [address] [place] [address] IMAGING STUDIES: XR SHOULDER RT 3V DATE: 08/11/2024 8:04 AM COMPARISON: No comparisons. CLINICAL HISTORY: fall, shoulder pain . Prior rotator cuff surgery in 2017. FINDINGS: No evidence of acute fracture, dislocation or osseus erosion. Osteopenia limits exam Normal contour to the humeral head. Mild degenerative change of the glenohumeral articulation. Mild degenerative change of the AC joint and greater tuberosity. Postoperative changes noted with anchors in the humeral head Procedure Note Juan David Rodriguez MD - 08/11/[address] [place] [address] IMAGING STUDIES: XR SHOULDER RT 3VDATE: 08/11/2024 8:04 AM COMPARISON: No comparisons. CLINICAL HISTORY: fall, shoulder pain . Prior rotator cuff surgery [id number]. FINDINGS: No evidence of acute fracture, dislocation or osseus erosion. Osteopenialimits exam Normal contour to the humeral head. Mild degenerative change of theglenohumeral articulation. Mild degenerative change of the AC joint and greater tuberosity.Postoperative changes noted with anchors in the humeral head IMPRESSION: 1. No acute findings Ordered By: DEEJAY TOLEDO Interpreted By: Katina Rodriguez, 08/11/2024 8:39 AM Deejay Toledo MD GENERAL IMAGING Final Result * (ABNORMAL) BUN CREATININE RATIO (07/10/2024 8:48 AM PLATE STRAIGHTENER) BUN 17 7 - 18 MG/DL 07/10/2024 10:59 AM [facility] CREATININE S/P/B 1.10(H) 0.55 - 1.02 MG/DL 07/10/2024 10:59 AM [facility] GFR ESTIMATE 58(L) >90 ML/MIN/1.7 3 M2 07/10/2024 10:59 AM [facility] Comment: NOTE: eGFR is not calculated for patients <18 years of age. This is an estimated GFR calculation using the new CKD EPI creatinine equation without race and so does not require a correction factor for race. This estimated GFR should not be used for calculating drug doses. BUN CREATININE RATIO 15.5 6 - 26 07/10/2024 10:59 AM [facility] 07/10/2024 8:48 AM PLATE STRAIGHTENER Rosangela Clayton MD LABORATORY Final Result Performing Organization Address City/[facility]/ZIP Co de Phone Number [facility] [address] [place] [address], * SED RATE, ERYTHROCYTE (ESR) (07/10/2024 8:48 AM PLATE STRAIGHTENER) ESR 4 <30 MM/HR 07/10/2024 10:10 AM PLATE STRAIGHTENER [facility] 07/10/2024 8:48 AM PLATE STRAIGHTENER us Rosangela Clayotn MD LABORATORY Final Result Performing Organization Address City/[facility]/ZIP Co de Phone Number [facility] [address] [place] [address], * (ABNORMAL) HEPATIC FUNCTION PANEL (07/10/2024 8:48 AM PLATE STRAIGHTENER) TOTAL PROTEIN S/P/B 6.4 6.4 - 8.2 G/DL 07/10/2024 10:59 AM [facility] ALBUMIN S/P/B 3.4 3.4 - 5.0 G/DL 07/10/2024 10:59 AM [facility] BILIRUBIN TOTAL S/P/B 0.4 0.2 - 1.2 MG/DL 07/10/2024 10:59 AM [facility] Comment: THIS ASSAY IS NOT RECOMMENDED FOR PATIENTS UNDERGOING TREATMENT WITH ELTROMBOPAG DUE TO THE POTENTIAL FOR FALSELY ELEVATED RESULTS. BILIRUBIN DIRECT S/P/B 0.2 0.0 - 0.2 MG/DL 07/10/2024 10:59 AM [facility] BILIRUBIN INDIRECT S/P/B 0.2 0.0 - 0.9 MG/DL 07/10/2024 10:59 AM [facility] ALKALINE PHOSPHATASE S/P/B 40(L) 50 - 136 U/L 07/10/2024 10:59 AM [facility] AST 31 15 - 37 U/L 07/10/2024 10:59 AM [facility] ALT 43 14 - 55 U/L 07/10/2024 10:59 AM [facility] A/G RATIO 1.1 1.0 - 2.0 RATIO 07/10/2024 10:59 AM [facility] 07/10/2024 8:48 AM PLATE STRAIGHTENER us Rosangela Clayton MD LABORATORY Final Result [facility] [address] [place] [address], [place] [phone] * C-REACTIVE PROTEIN (07/10/2024 8:48 AM PLATE STRAIGHTENER) Pathologist [facility] C-REACTIVE PROTEIN 0.10 <0.3 mg/dL 07/10/2024 10:59 AM [facility] 07/10/2024 8:48 AM PLATE STRAIGHTENER Rosangela Clayton MD LABORATORY Final Result [facility] [address] [place] [id number], [place] [phone] * (ABNORMAL) CBC W/DIFF AUTOMATED (07/10/2024 8:48 AM PLATE STRAIGHTENER) [facility] WBC 4.48(L) 4.50 - 11.00 x10'3/uL 07/10/2024 9:14 AM [facility] RBC 4.40 4.20 - 5.40 x10'6/uL 07/10/2024 9:14 AM [facility] HGB 12.7 12.0 - 16.0 G/DL 07/10/2024 9:14 AM [facility] HCT 38.8 38.0 - 48.0 % 07/10/2024 9:14 AM [facility] MCV 88.2 81.0 - 99.0 FL 07/10/2024 9:14 AM [facility] MCH 28.9 27.0 - 31.0 PG 07/10/2024 9:14 AM [facility] MCHC 32.7 32.0 - 36.0 G/DL 07/10/2024 9:14 AM [facility] RDW 13.8 11.5 - 14.5 % 07/10/2024 9:14 AM [facility] PLT 248 130 - 400 x10'3/uL 07/10/2024 9:14 AM [facility] MPV 9.3 9.3 - 12.2 FL 07/10/2024 9:14 AM [facility] CBC COMMENT AUTOMATED RBC MORPHOLOGY AND PLATELET EVALUATION NORMAL 07/10/2024 9:14 AM [facility] NEUTROPHILS % 52.6 % 07/10/2024 9:14 AM [facility] LYMPHOCYTES % 35.5 % 07/10/2024 9:14 AM [facility] MONOCYTES % 9.4 % 07/10/2024 9:14 AM [facility] EOSINOPHILS 1.6 % 07/10/2024 9:14 AM [facility] BASOPHILS 0.7 % 07/10/2024 9:14 AM [facility] IMMATURE GRANS % 0.2 % 07/10/19 25 9:14 AM [facility] NRBC % 0.0 % 07/10/2024 9:14 AM [facility] ABS. NEUTROPHILS TOTAL 2.36 1.80 - 7.70 x10'3/uL 07/10/2024 9:14 AM [facility] ABS. LYMPHOCYTES 1.59 1.00 - 4.80 x10'3/uL 07/10/2024 9:14 AM [facility] ABS. MONOCYTES 0.42 0.24 - 0.86 x10'3/uL 07/10/2024 9:14 AM [facility] ABS. EOSINOPHILS 0.07 0.04 - 0.36 x10'3/uL 07/10/2024 9:14 AM [facility] ABS. BASOPHILS 0.03 0.01 - 0.08 x10'3/uL 07/10/2024 9:14 AM PLATE [facility] ABS. IMMATURE GRANULOCYTES 0.01 0.00 - 0.49 x10'3/uL 07/10/2024 9:14 AM PLATE STRAIGHT[facility] ABS. NUCLEATED RBC'S 0.00 0.00 - 0.01 x10'3/uL 07/10/2024 9:14 AM [facility] [employer] 07/10/2024 8:48 AM PLATE STRA[employer] Rosangela Clayton MD LABORATORY Final Result Performing Organization Address [facility]/ZIP Co de Phone Number [facility] [address] [place] [address], [place] [phone] * DIABETIC RETINOPATHY EXAM (POSITIVE) (02/28/2024) [facility] Scanned SCANNING Final Resu lt Performing Organization Address [facility] Co de Phone Number [facility] * MG SCREENING W ARACELI MEI DIGI (12/28/2023 2:06 PM CDT) Anatomical Region Laterality Modality Breast Bilateral Mammography 12/28/2023 4:20 PM CDT Impressions 12/28/2023 4:21 PM CDT =====IMPRESSION:===== No mammographic findings suggestive of malignancy ASSESSMENT: ACR BI-RADS 2 - BENIGN FINDING(S) Recommendation: 1: Routine Screening Bilateral COMMENTS: Ordered By: GERDA MINOR Interpreted By: Adriano Manzo MD, 12/28/2023 4:20 PM Narrative 12/28/2023 4:21 PM CDT EXAMINATION: Digital bilateral screening mammogram with 3-D tomosynthesis EXAM DATE/TIME: 12/28/2023 12:45 PM REASON FOR EXAM: annual screen COMPARISON: Priors including November 2021, August 2020, April 2019 TECHNIQUE: Digital screening mammography of both breasts was performed in addition to 3-D Tomosynthesis technique. This study was read with the assistance of a computer-aided detection system. TISSUE DENSITY: There are scattered areas of fibroglandular density. FINDINGS: No suspicious masses, malignant appearing calcifications, skin thickening or other abnormalities are present. No significant change from the prior exam. Gerda Minor [facility] Final Resul t * A1C (BACK OFFICE) (12/24/2023) HGB A1C 7.4 % [place] [address], [place] 12/24/2023 Gerda Minor [facility] Final Resul t [place] [address] [place] [address] [address] [place] [address], [place] [phone] * HEPATITIS C ANTIBODY (09/06/2023 3:19 PM CDT) Pathologist [facility] HEPATITIS C AB NON-REACTI VE NON-REACTI VE 09/06/2023 8:54 PM CDT [facility] 09/06/2023 3:19 PM CDT Rosangela Clayton MD LABORATORY Final Result [facility] [address] [place] [address], [place] [phone] * (ABNORMAL) LIPID PANEL (07/24/2023 7:46 AM PLATE STRAIGHTENER) Pathologist [facility] CHOLESTEROL 154 <200 mg/dL [facility] HDL 36(L) > OR = 50 mg/dL [facility] TRIGLYCERIDES 208(H) <150 mg/dL [facility] Comment: If a non-fasting specimen was collected, consider repeat triglyceride testing on a fasting specimen if clinically indicated. Aura et al. J. of Clin. Lipidol. 2015;9:129-169. LDL (CALCULATED) 88 mg/dL (calc) [facility] Comment: Reference range: <100 Desirable range <100 mg/dL for primary prevention; <70 mg/dL for patients with CHD or diabetic patients with > or = 2 CHD risk factors. LDL-C is now calculated using the Tracy calculation, which is a validated novel method providing better accuracy than the Friedewald equation in the estimation of LDL-C. Michael SS et al. MANE. 2013;310(19): 3090-4563 (http://education.MuscleGenes/faq/SMP429) CHOL/HDL RATIO 4.3 <5.0 (calc) [facility] NON HDL CHOLESTEROL 118 <130 mg/dL (calc) [facility] Comment: For patients with diabetes plus 1 major ASCVD risk factor, treating to a non-HDL-C goal of <100 mg/dL (LDL-C of <70 mg/dL) is considered a therapeutic option. 07/24/2023 7:46 AM [facility] 07/24/2023 7:50 AM PLATE STRAIGHTENER Narrative [facility] - MISEAL ORDERS - 07/25/2023 7:36 AM PLATE STRAIGHTENER FASTING:YES FASTING: YES Resulting Agency Comment Performing Organization Information: Site ID: [id number] Name: Adrien Mccoy Address: [address] [place] [address] Director: Gladys Carter MD Gerda Minor [facility] Final Resul t ADRIEN ULRICH Torbit [facility] [address] [place], [place] [address] * COLOGUARD (EXACT SCIENCE) (01/08/2023 11:30 AM CDT) COLOGUARD RESULT Negative Negative [facility] (CLIA #:[id number]) Comment: NEGATIVE TEST RESULT. A negative Cologuard result indicates a low likelihood that a colorectal cancer (CRC) or advanced adenoma (adenomatous polyps with more advanced pre-malignant features) is present. The chance that a person with a negative Cologuard test has a colorectal cancer is less than 1 in 1500 (negative predictive value >99.9%) or has an advanced adenoma is less than 5.3% (negative predictive value 94.7%). These data are based on a prospective cross-sectional study of 10,000 individuals at average risk for colorectal cancer who were screened with both Cologuard and colonoscopy. (Eusebia Amor et al, N Engl J Med 2014;370(14):9471-0695) The normal value (reference range) for this assay is negative. COLOGUARD RE-SCREENING RECOMMENDATION: Periodic colorectal cancer screening is an important part of preventive healthcare for asymptomatic individuals at average risk for colorectal cancer. Following a negative Cologuard result, the [place] [employer] Society and U.S. Multi-Society Task Force screening guidelines recommend a Cologuard re-screening interval of 3 years. References: [place] [employer] Guideline for Colorectal Cancer Screening: https://www.cancer.org/cancer/mwafz-xdzpvj-dzjdry/chrsgueiy-ebfslequz-vqhmmrv/ac s-rec ommendations.html.; Andriy LUCIANO, Segundo HENAO, Veronica ValienteK, Colorectal Cancer Screening: Recommendations for Physicians and Patients from the U.S. Multi-Society Task Force on Colorectal Cancer Screening , Am J Gastroenterology 2017; 112:2360-9959. TEST DESCRIPTION: Composite algorithmic analysis of stool DNA-biomarkers with hemoglobin immunoassay. Quantitative values of individual biomarkers are not reportable and are not associated with individual biomarker result reference ranges. Cologuard is intended for colorectal cancer screening of adults of either sex, 45 years or older, who are at average-risk for colorectal cancer (CRC). Cologuard has been approved for use by the U.S. FDA. The performance of Cologuard was established in a cross sectional study of average-risk adults aged 50-84. Cologuard performance in patients ages 45 to 49 years was estimated by sub-group analysis of near-age groups. Colonoscopies performed for a positive result may find as the most clinically significant lesion: colorectal cancer [4.0%], advanced adenoma (including sessile serrated polyps greater than or equal to 1cm diameter) [20%] or non- advanced adenoma [31%]; or no colorectal neoplasia [45%]. These estimates are derived from a prospective cross-sectional screening study of 10,000 individuals at average risk for colorectal cancer who were screened with both Cologuard and colonoscopy. (Eusebia Carrion al, N Engl J Med 2014;370(14):9732-2070.) Cologuard may produce a false negative or false positive result (no colorectal cancer or precancerous polyp present at colonoscopy follow up). A negative Cologuard test result does not guarantee the absence of CRC or advanced adenoma (pre-cancer). The current Cologuard screening interval is every 3 years. ([place] [employer] and U.S. Multi-Society Task Force). Cologuard performance data in a 10,000 patient pivotal study using colonoscopy as the reference method can be accessed at the following location: www.WeoGeo.Oceanea/results. Additional description of the Cologuard test process, warnings and precautions can be found at www.cologuard.com. STOOL STOOL SPECIMEN / Unknown 01/08/2023 11:30 AM CDT 01/09/2023 9:49 PM CDT Gerda Minor [employer] STOOL[employer]INS Final Result [facility] ([facility]) [address] [place] [address], [employer] (CLIA #:[id number]) [address] [facility] [place] [address] from Last 3 Months or Most Recently Relevant [place] [address] [facility] Advance Directives * Full Code (Latest Code Status on File) Date Activated Date Inactivated Comments 05/10/2020 6:13 PM 05/11/2020 3:54 PM Care Teams Learning Development Specialist Relationship Specialty [place] [address] [place] [id number] PCP - General 12/12/16
--- OUTSIDE RECORDS SUMMARY | 2024-09-22 13:08 | XMS_ITS | Encounter Summary ---
Author Organization [facility] Address [address] [place] [address] Care Team Providers Care Manager Servicing Name Role Phone Ulisses Minor MD Primary Care Provide r Encounter Details Date Type Department Care Team (Late st Contact Info) Description 09/19/2023 Discera Message [facility] [address] [address] [place] [address] Liliya James, ORE DRESSING ENGINEER [address] [place] [address] Antibiotic Social History Tobacco Use Types Packs/Day Years Used Date Smoking Tobacco: Never Passive Smoke Exposure: Past Smokeless Tobacco: Never Alcohol Use Standard Drinks/Week Comments Not Currently 0 (1 standard drink = 0.6 oz pur e alcohol) rarely PHQ-2 Answer Date Recorded Patient Health Questionnaire-2 Score 0 09/19/2023 Comments No Sex and Gender Information Value Date Recorded Sex Assigned at Female 08/11/2024 9:45 AM CDT Legal Sex Female 8:33 PM CDT Gender Identity Not on file Sexual Orientation Not on file documented as of this encounter Functional Status * RETIRED Are you deaf or do you have serious difficulty hearing Answer Date of Assessment Author Status No 05/10/2020 5:51 PM [employer]IONAL [employer]ESTER Activ e * RETIRED Are you blind or do you have serious difficulty seeing, even when wearing glasses? Answer Date of Assessment Author Status No 05/10/2020 5:51 PM REGIONAL FORESTER Activ e * Do you have serious difficulty walking or climbing stairs? Answer Date of Assessment Author Status No 05/10/2020 5:51 PM Savita Martínez RN Active * Do you have difficulty dressing or bathing? Answer Date of Assessment Author Status No 05/10/2020 5:51 PM Savita Martínez RN Active * Because of a physical, mental, or emotional condition, do you have difficulty doing errands alone such as visiting a doctor's office or shopping? Answer Date of Assessment Author Status No 05/10/2020 5:51 PM Savita Martínez RN Active * Over the past 2 weeks, how often have you been bothered by any of the following problems? Question Answer Date of Assessment Author Status Little interest or pleasure in doing things Not at all 09/19/2023 1:14 PM CDT Eduarda Sheikh MA Active Feeling down, depressed, or hopeless Not at all 09/19/2023 1:14 PM CDT Josefina Sheikh MA Active Patient Health Questionnaire-2 Score 0 09/19/2023 1:14 PM CDT Deirdre Sheikh MA Active documented as of this encounter Mental [...] documented as of this encounter Care Teams Manager Servicing Relationship Specialty [place] [address] [place] [id number] PCP - General 12/12/16 documented as of this encounter
--- OUTSIDE RECORDS SUMMARY | 2024-09-22 13:08 | XMS_ITS | Clinical Summary ---
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 Name Role Phone Lukas Minor NP Primary Care Provider [phone] Allergies Active Allergy Reactions Criticality Noted Date Comments Clarithromycin Diarrhea,Nausea And Vomiting Low 12/20/2015 Codeine Itching Low 02/08/2011 Other reaction(s): GI Discomfort Gatifloxacin Diarrhea,Nausea And Vomiting Low 12/20/2015 Metformin Nausea only Low 03/08/2018 Medications atorvastatin (LIPITOR) 40 mg tabletIndicat ions:hyperlip idemia Take 1 tablet (40 mg total) by mouth 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 before 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 Active escitalopram (LEXAPRO) 20 mg tabletIndicat ions:Generali zed Anxiety Disorder,slee p Take 1 tablet (20 mg total) by mouth every morning Active ABDELRAHMAN CEDENO U-300 INSULIN 300 unit/mL (1.5 mL) insulin penIndication s:type 2 diabetes mellitus Inject 80 Units under the skin nightly 11 018 Active levothyroxine (SYNTHROID, LEVOTHROID) 88 mcg tabletIndicat ions:hypothyr oidism Take 1 tablet (88 mcg total) by mouth 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 before breakfast 3 018 Active multivitamin tabletIndicat ions:Vitamin Deficiency Prevention Take 1 tablet by mouth every morning Active omeprazole (PriLOSEC) 20 mg capsuleIndica tions:Treatme nt of Non-Bleeding Gastric Disorder Take 1 capsule (20 mg total) by mouth nightly 1 018 Active triamterene-h ydroCHLOROthi azide (triamterene- hydroCHLOROth iazide) 37.5-25 mg per tablet/capsul eIndications: swelling/BP Take 1 tablet/capsule by mouth every morning Active cyclobenzapri ne (FLEXERIL) 5 mg tablet Take 1 tablet (5 mg total) by mouth 3 (three) times a day as needed for muscle spasms. 30 tablet Active OneTouch Ultra Test strip USE TO TEST THREE TIMES DAILY FOR DIABETES Active fluticasone propionate (FLONASE) 50 mcg/actuation nasal sprayIndicati ons:Allergic Rhinitis Administer 2 sprays into affected nostril(s) daily as needed for rhinitis or allergies Active NovoLOG 100 unit/mL (3 mL) pen for injectionIndi cations:type 2 diabetes mellitus Inject 16 Units under the skin 3 (three) times a day with meals Active lisinopriL (PRINIVIL,ZES TRIL) 10 mg tabletIndicat ions:hyperten efe Take 1 tablet (10 mg total) by mouth 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 before breakfast Active Hyrimoz,CF, Pen 40 mg/0.4 mL pen injector Active traMADoL (ULTRAM) 50 mg tablet TAKE 1 TABLET BY MOUTH EVERY 6 HOURS NEEDED FOR CHRONIC PAIN Active hydroxychloro quine (PLAQUENIL) 200 mg tablet Take 1 tablet (200 mg total) by mouth 2 (two) times a day Active HYDROcodone-a cetaminophen (NORCO) 5-325 mg per tablet Take 1 tablet by mouth every 6 (six) hours as needed Active naloxone (NARCAN) 4 mg/actuation spray,non-aer osol Administer 1 spray into affected nostril(s) as needed 2025 Active guaiFENesin-c odeine (GUAITUSS AC) liquid 100-10 mg/5 mL Take 5 mL by mouth every 4 (four) hours as needed Active Mounjaro 12.5 mg/0.5 mL pen injector injection 12.5 MG (0.5 ML) SUBCUTANEOUSLY WEEKLY Active amitriptyline (ELAVIL) 25 mg tablet Take 1 tablet (25 mg total) by mouth nightly Active methotrexate 2.5 mg tabletIndicat ions:Rheumato id Arthritis Take 3 tablets (7.5 mg total) by mouth every 7 days Tues - hold until follow-up with Dr. Noriega 36 tablet 1 Active folic acid (FOLVITE) 1 mg tablet Take 1 tablet (1 mg total) by mouth daily 90 tablet 1 025 2024 Active adalimumab (HUMIRA, CF, SYRINGE) 40 mg/0.4 mL syringe kitIndication s:gave one sample pen exp 10/20, lot # [id number] [facility] [id number] Use as directed 1 each Active adalimumab-ad az (Hyrimoz,CF, Pen) 40 mg/0.4 mL pen injector Inject 40 mg under the skin every 14 (fourteen) days 2.4 mL Active acetaminophen 500 mg capsuleIndica tions:Pain Take 2 capsules (1,000 mg total) by mouth every 6 (six) hours. 60 tablet 018 2024 Discontinued(T herapy completed) amitriptyline (ELAVIL) 10 mg tabletIndicat ions:Insomnia Take 1 tablet (10 mg total) by mouth nightly 2024 Discontinued(T herapy completed) Jardiance 25 mg tabletIndicat ions:type 2 diabetes mellitus Take 1 tablet (25 mg total) by mouth 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 before breakfast 2024 Discontinued(T herapy completed) methotrexate 2.5 mg tabletIndicat ions:Rheumato id Arthritis Take 3 tablets (7.5 mg total) by mouth every 7 days Tues - hold until follow-up with Dr. Noriega 024 2024 Discontinued(Xander Abdi 7.5 mg/0.5 mL pen injector INJECT 7.5 MG INTO THE SKIN ONCE A WEEK. INDICATIONS: DIABETES 024 2024 Discontinued(T herapy completed) doxycycline hyclate 100 mg capsule Take 1 tablet/capsule (100 mg total) by mouth 2 (two) times a day 025 2024 adalimumab (HUMIRA, CF, SYRINGE) 40 mg/0.4 mL syringe kitIndication s:gave one sample pen exp 10/20, lot # [id number] [facility] [id number] Use as directed 1 each 025 2024 Discontinued adalimumab (HUMIRA, CF, SYRINGE) 40 mg/0.4 mL syringe kitIndication s:gave one sample pen exp 10/20, lot # [id number] [facility] [id number] Use as directed 1 each 025 2024 Discontinued adalimumab (HUMIRA, CF, SYRINGE) 40 mg/0.4 mL syringe kitIndication s:gave one sample pen exp 10/20, lot # [id number] [facility] [id number] Use as directed 1 each 025 2024 Discontinued Active Problems Problem Noted Date Diagnosed Date Other intervertebral disc degeneration, lumbar r egion 06/21/2023 Hemangioma of liver 01/17/2018 Overview (01/17/2018): Added automatically from request for surgery [id number] Cervical radiculopathy 09/27/2016 Allergic rhinitis due to pollen 09/15/2014 Overview (08/09/2023): Allergic rhinitis due to pollen Anxiety state 10/19/2013 Overview (08/09/2023): Anxiety state, unspecified Benign essential hypertension 01/14/2012 Overview (08/09/2023): Benign essential hypertension DM (diabetes mellitus) 03/06/2011 GERD (gastroesophageal reflux disease) 1 High blood cholesterol 03/06/2011 HTN (hypertension) 03/06/2011 Hypothyroidism (acquired) 03/06/2011 Overview (08/09/2023): Hypothyroidism, unspecified Morbid obesity 03/06/2011 Resolved Problems Problem Noted Date Diagnosed Date Resolved Date Spinal stenosis of lumbar re gion with neurogenic claudication 08/27/2023 09/08/2024 Spondylolisthesis of lumbar region 06/21/2023 09/08/2024 Acute bilateral low back lacy n with left-sided sciatica 03/03/2022 09/08/2024 Psoriatic arthritis 06/20/2021 09/09/19 25 COVID-19 05/10/2020 09/08/2024 Right arm pain 11/05/2018 09/08/2024 Breast mass in female 01/02/20182024 Liver mass 01/02/2018 09/08/2024 Myofascial pain 04/25/2017 09/08/2024 Cervical osteophyte 06/14/2016 09/09/19 Muscle spasm 06/14/2016 09/08/2024 Sciatica 09/28/2014 09/08/2024 Overview (08/09/2023): Sciatica Knee pain 03/06/2011 09/08/2024 Encounters Date Type Department Care Team Description 09/08/2024 8:52 AM CDT - 09/08/2024 11:59 PM CDT Hospital Encounter [facility] [address] [place] [address] Rheumatoid arthritis with rheumatoid factor of right hand without organ or systems involvement (HCC) Discharge Disposition: Discharge to home or self care 09/08/2024 8:00 AM CDT Office Visit [facility] [address] [place] [address] Medical Office Building [address] [place] [id number] Meme Hassan NP Rheumatoid arthritis with rheumatoid factor of right hand without organ or systems involvement (HCC) (Primary Dx); High risk medication use; Primary osteoarthritis involving multiple joints 09/08/2024 Telephone [facility] [address] [place] [address] Medical Office [address] [place] [phone] Meme Hassan NP 09/05/2024 Telephone [facility] [address] [facility] Medical Office Building [address] [place] [address] Steve Rosado NP from Last 3 Months Immunizations Immunization Administration Dates Next Due Hep B Vaccine 12/01/2003,06/16/2003,05/12/2003 Influenza, Quadrivalent, Rec ombinant, Egg Free, Preservative Free, Intramuscular 03/02/2019 Influenza, Quadrivalent, Spl it, Preservative Free, Intramuscular 03/21/2023,03/03/2022,03/10/2021,02/02,02/19/2018,02/23/2016,02/22/2015 Influenza, Trivalent, IM (MDV) 02/18/2017 Influenza, Unspecified 02/20/2018,2016,03/10/2014,02/09 Pneumococcal Polysaccharide PPV23 05/11/2011 Tdap 11/21/2018,05/17/2014 Surgical History Surgery Date Site/Laterality Comments ROTATOR CUFF REPAIR Bilateral 10/2017 Right, 1995 Left WRIST SURGERY 06/28/2006 - 07/25/2006 Right broken wrist SECTION 02/25/1993 - 03/27/1993 LAPAROSCOPIC GASTRIC BANDING 04/27/2013 - 05/27/2013 ANTERIOR CERVICAL DISCECTOMY W/ FUSION 11/25/2016 - 12/25/2016 CHOLECYSTECTOMY 09/25/1993 - 10/25/1993 HYSTERECTOMY 03/28/1994 - 04/26/1994 Medical History Medical History Date Comments Liver disease Diabetes mellitus (HCC) Dxd 1992 Arthritis Hypercholesteremia Hypertension Liver mass Right posterior hemangioma Morbid obesity (HCC) History of gastroesophageal reflux (GERD) Hiatal hernia PONV (postoperative nausea and vomiting) Hypothyroidism Sleep apnea Treated with den isaías appliance Anxiety Asthma Cervical disc disease Cervical stenosis (uterine cervix) Type 2 diabetes mellitus (HCC) Diverticulitis of colon Gastric reflux Hyperthyroidism Rheumatoid arthritis (HCC) Family History Medical History Relation Name Comments Liver cancer Father Lung cancer Father Breast cancer Other Lung cancer Paternal Grandfather Breast cancer Sister PONV Sister Relation Name Status Comments Father (Age 49) Cancer Mother (Age 60) Aneurysm Other Paternal Grandfather Sister Social History Tobacco Use Types Packs/Day Years Used Date Smoking Tobacco: Never Passive Smoke Exposure: Past Smokeless Tobacco: Never Tobacco Cessation:Counseling Given: No Alcohol Use Standard Drinks/Week Comments Yes 1 (1 standard drink = 0.6 oz pur e alcohol) Rare AUDIT-C Answer Date Recorded Q1: How often do you have a drink containing alcohol? Never 01/22/2024 Q2: How many drinks containi ng alcohol do you have on a typical day when you are drinking? Patient does not drink Q3: How often do you have si x or more drinks on one occasion? Never 01/22/2024 Personal Safety Answer Date Recorded Have you ever been in or are you currently in a harmful physical or emotional relationship or is someone making you feel afraid or unsafe? 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 Gender Identity Not on file Sexual Orientation Not on file Obstetrics History Last Filed Vital Signs Vital Sign Reading Time Taken Comments Blood Pressure 108/74 09/08/2024 7:34 AM CDT Pulse 92 09/08/2024 7:34 AM CDT Temperature 36.3 C (97.3 F) 09/08/2024 7:34 AM CDT Respiratory Rate 18 11/01/2023 7:21 AM CDT Oxygen Saturation 100% 09/08/2024 7:34 AM CDT Inhaled Oxygen Concentration - - Weight 106.6 kg (235 lb 1.6 oz) 09/08/2024 7:34 AM CDT Height 165.1 cm (5' 5 ) 09/08/2024 7:34 AM CDT Body Mass Index 39.12 09/08/2024 7:34 AM CDT Plan of Treatment Health Maintenance Due Date Last Done Comments Albumin Creatinine Ratio, Urine 1966 Colon Cancer Screening-Colonoscopy 1966 Depression Screening 1966 Hepatitis C Screening 1966 Foot Exam 1966 Regular Well Visit/Exam 18-64 1984 Zoster Vaccine (1 of 2) 1985 Pneumococcal vaccine <65 (2 of 2 - PCV) 05/11/2012 05/11/2011 Hemoglobin A1C 08/19/2018 02/19/2018 Covid-19 Vaccine (3 - Modern a risk series) 05/17/2021 04/19/2021, 08/07/2020, 07/10/2020 Lipid Panel 07/24/2024 07/24/2023, 12/0 08/2020, 03/08/2018 eGFR 10/30/2024 10/31/2023, 02/19/2018 Breast Cancer Screening-Mammogram 12/27/2024 12/28/2023, 12/28/2023, 11/25/2021, Additional history exists Dilated Eye Exam 02/27/2025 02/28/2024 DTaP/Tdap/Td Vaccine (4 - Td or Tdap) 08/11/2034 08/11/2024, 11/21/2018, 05/17/2014 Hepatitis B Screening Completed 12/01/2003 , 06/16/2003, 05/12/2003 Influenza Vaccine Completed 03/17/2024, , 03/03/2022, Additional history exists Medical Devices Implanted Type Area Lining Closer Device Identifier Shelf Expiration Date Model / Serial / Lot [employer] Screw Spinal 6.5x40mm Spruce Pine Pedicular Fix Sys Strl 950-6226 - [id number] Implanted:Qty: 4 on 10/31/2023 by Lamine Noriega MD PhD at [facility] N/A: Spine Lumbar [employer] Inc [id number] / / [employer]ine[employer] Inc Graft Bone Tube 3/4 Filled Divrtd G2 [id number] - [id number] - [id number] Implanted:Qty: 1 on 10/31/2023 by Lamine Noriega MD PhD at [facility] N/A: Spine Lumbar [employer] Inc 04/30/2025 [id number] / [id number] 137 / Spine[employer] Inc Set Spinal Spruce Pine Pedicular Fix Sys Strl Screw Pkg [id number] - [id number] Implanted:Qty: 4 on 10/31/2023 by Lamine Noriega MD PhD at [facility] N/A: Spine Lumbar [employer] 670-0007 / / Ceraped[employer] Inc Allograft Bone Putty 2.5cc 700-446 - [id number] Implanted:Qty: 1 on 10/31/2023 by Lamine Noriega MD PhD at [facility] N/A: Spine Lumbar [employer] Inc 10/25/2025 700-025 / / Spine[employer] Inc Rubén Spinal 45mm Crv Spruce Pine Pedicular Fix Sys Strl 670-5288 - [id number] Implanted:Qty: 2 on 10/31/2023 by Lamine Noriega MD PhD at [facility] N/A: Spine Lumbar [employer] Inc [id number] / / [employer]ine[employer] Inc Graft Bone Tube 3/4 Filled Divrtd G2 445190 - [id number] - [id number] Implanted:Qty: 1 on 10/31/2023 by Lamine Noriega MD PhD at [facility] N/A: Spine Lumbar [employer] Inc 04/30/2025 [id number] / [id number] 137 / Medtronic Inc Infuse Kit Xs Graft Bone Rhbmp-2 Bovine Collagen Lumbar Taper [id number] - [id number] Implanted:Qty: 1 on 10/31/2023 by Lamine Noriega MD PhD at [facility] N/A: Spine Lumbar Medtronic Inc 11/24/2024 [id number] / / Spine[employer] Inc Cage Fusion Dual Chamb Large Interbody Exp System Optimesh 400-2620 - [id number] Implanted:Qty: 1 on 10/31/2023 by Lamine Noriega MD PhD at [facility] N/A: Spine Lumbar [employer] Inc 05/28/2028 [id number] / / [id number] [employer]ine[employer] Inc Graft Bone Tube 3/4 Filled Divrtd G2 [id number] - [id number] - [id number] Implanted:Qty: 1 on 10/31/2023 by Lamine Noriega MD PhD at [facility] N/A: Spine Lumbar [employer] Inc 04/30/2025 [id number] / [id number] 137 / [employer]ine[employer] Inc Graft Bone Tube 3/4 Filled Divrtd G2 [id number] - [id number] - [id number] Implanted:Qty: 1 on 10/31/2023 by Lamine Noriega MD PhD at [facility] N/A: Spine Lumbar [employer] Inc 04/30/2025 [id number] / [id number] 137 / Procedures Procedure Name Priority Date/Time Associated Diagnosis Comments XR HAND RIGHT 2 VIEWS Schedule Routine, Read Routine (OP Routine) 09/08/2024 9:03 AM CDT Rheumatoid arthritis with rheumatoid factor of right hand without organ or systems involvement (HCC) XR HAND LEFT 2 VIEWS Schedule Routine, Read Routine (OP Routine) 09/08/2024 9:03 AM CDT Rheumatoid arthritis with rheumatoid factor of right hand without organ or systems involvement (HCC) HM DIABETES EYE EXAM Routine 02/28/2024 11:06 AM CDT EGFR STAT 10/31/2023 10:34 PM CDT LIPID PANEL STAT 03/08/2018 1:30 PM CDT HEMOGLOBIN A1C STAT 02/19/2018 3:42 PM CDT Encounter for preadmission testing from Last 3 Months or Most Recently Relevant to Health Maintenance Results * XR Hand Right 2 Views (09/08/2024 9:03 AM CDT) Anatomical Region Laterality Modality Upper Extremities, Hand Right Computed Radiography 09/08/2024 10:1 5 AM CDT Impressions 09/08/2024 5:49 PM CDT 1. Mild soft tissue swelling overlying the dorsal aspect of the right 3rd metacarpal head. No osseous erosions. 2. Mild polyarticular osteoarthritis of both hands. No radiographic evidence of inflammatory arthritis. 3. Healed right distal radial fracture with mild postraumatic right radiocarpal osteoarthritis. Dictated by: Pedro Johnson MD The radiology attending physician has personally reviewed this study, and had reviewed and/or edited this written report and agrees with it. Electronically signed by: Rhianna Watt MD Narrative 09/08/2024 5:49 PM CDT EXAMINATION: XR HAND LEFT 2 VIEWS, XR HAND RIGHT 2 VIEWS HISTORY: Rheumatoid arthritis FINDINGS: 2 view examination of each hand is submitted without comparison. Right hand: There is mild soft tissue swelling overlying the dorsal aspect of the right 3rd metacarpal head. There is a healed right distal radius fracture. There is mild radiocarpal osteoarthritis. There is mild polyarticular osteoarthritis of the right hand, most prominently involving the 1st carpometacarpal, triscaphe, and interphalangeal joints. No osseous erosions. No acute fracture or dislocation. Left hand: There is mild left radiocarpal osteoarthritis. There is mild polyarticular osteoarthritis of the left hand, most prominently involving the 1st carpometacarpal, triscaphe, and interphalangeal joints. No osseous erosions. No acute fracture or dislocation. Procedure Note Vaishnavi Watt MD - 09/08/2024 EXAMINATION: XR HAND LEFT 2 VIEWS, XR HAND RIGHT 2 VIEWS HISTORY: Rheumatoid arthritis FINDINGS: 2 view examination of each hand is submitted without comparison. Right hand: There is mild soft tissue swelling overlying the dorsal aspect of the right 3rd metacarpal head. There is a healed right distal radius fracture. There is mild radiocarpal osteoarthritis. There is mild polyarticular osteoarthritis of the right hand, most prominently involving the 1st carpometacarpal, triscaphe, and interphalangeal joints. No osseous erosions. No acute fracture or dislocation. Left hand: There is mild left radiocarpal osteoarthritis. There is mild polyarticular osteoarthritis of the left hand, most prominently involving the 1st carpometacarpal, triscaphe, and interphalangeal joints. No osseous erosions. No acute fracture or dislocation. IMPRESSION: 1. Mild soft tissue swelling overlying the dorsal aspect of the right 3rd metacarpal head. No osseous erosions. 2. Mild polyarticular osteoarthritis of both hands. No radiographic evidence of inflammatory arthritis. 3. Healed right distal radial fracture with mild postraumatic right radiocarpal osteoarthritis. Dictated by: Pedro Johnson MD The radiology attending physician has personally reviewed this study, and had reviewed and/or edited this written report and agrees with it. Electronically signed by: Rhianna Watt MD Meme Hassan NP IMG XR PROCEDURES Final Result * XR Hand Left 2 Views (09/08/2024 9:03 AM CDT) Anatomical Region Laterality Modality Upper Extremities, Hand Left Computed Radiography 09/08/2024 10:1 5 AM CDT Impressions 09/08/2024 5:49 PM CDT 1. Mild soft tissue swelling overlying the dorsal aspect of the right 3rd metacarpal head. No osseous erosions. 2. Mild polyarticular osteoarthritis of both hands. No radiographic evidence of inflammatory arthritis. 3. Healed right distal radial fracture with mild postraumatic right radiocarpal osteoarthritis. Dictated by: Pedro Johnson MD The radiology attending physician has personally reviewed this study, and had reviewed and/or edited this written report and agrees with it. Electronically signed by: Rhianna Watt MD Narrative 09/08/2024 5:49 PM CDT EXAMINATION: XR HAND LEFT 2 VIEWS, XR HAND RIGHT 2 VIEWS HISTORY: Rheumatoid arthritis FINDINGS: 2 view examination of each hand is submitted without comparison. Right hand: There is mild soft tissue swelling overlying the dorsal aspect of the right 3rd metacarpal head. There is a healed right distal radius fracture. There is mild radiocarpal osteoarthritis. There is mild polyarticular osteoarthritis of the right hand, most prominently involving the 1st carpometacarpal, triscaphe, and interphalangeal joints. No osseous erosions. No acute fracture or dislocation. Left hand: There is mild left radiocarpal osteoarthritis. There is mild polyarticular osteoarthritis of the left hand, most prominently involving the 1st carpometacarpal, triscaphe, and interphalangeal joints. No osseous erosions. No acute fracture or dislocation. Procedure Note Vaishnavi Watt MD - 09/08/2024 EXAMINATION: XR HAND LEFT 2 VIEWS, XR HAND RIGHT 2 VIEWS HISTORY: Rheumatoid arthritis FINDINGS: 2 view examination of each hand is submitted without comparison. Right hand: There is mild soft tissue swelling overlying the dorsal aspect of the right 3rd metacarpal head. There is a healed right distal radius fracture. There is mild radiocarpal osteoarthritis. There is mild polyarticular osteoarthritis of the right hand, most prominently involving the 1st carpometacarpal, triscaphe, and interphalangeal joints. No osseous erosions. No acute fracture or dislocation. Left hand: There is mild left radiocarpal osteoarthritis. There is mild polyarticular osteoarthritis of the left hand, most prominently involving the 1st carpometacarpal, triscaphe, and interphalangeal joints. No osseous erosions. No acute fracture or dislocation. IMPRESSION: 1. Mild soft tissue swelling overlying the dorsal aspect of the right 3rd metacarpal head. No osseous erosions. 2. Mild polyarticular osteoarthritis of both hands. No radiographic evidence of inflammatory arthritis. 3. Healed right distal radial fracture with mild postraumatic right radiocarpal osteoarthritis. Dictated by: Pedro Johnson MD The radiology attending physician has personally reviewed this study, and had reviewed and/or edited this written report and agrees with it. Electronically signed by: Rhianna Watt MD Meme Hassan TRAVEL TICKETING REVIEWER IMG XR PROCEDURES Final Result * (ABNORMAL) DIABETES EYE EXAM (02/28/2024 11:06 AM CDT) Historical Provider HEALTH MAINTENANCE Edited Result - Final * (ABNORMAL) eGFR (10/31/2023 10:34 PM CDT) eGFR 53(L) >=60 mL/min/1. 73 m2 Comment: Interpretive Data Reference Interval Normal >/= 90 mL/min/1.73m2 Mildly decreased* 60 - 89 mL/min/1.73m2 Mildly to moderately decreased 45 - 59 mL/min/1.73m2 Moderately to severely decreased 30 - 44 mL/min/1.73m2 Severely decreased 15 - 29 mL/min/1.73m2 Kidney Failure < 15 mL/min/1.73m2 *Relative to young adult level Estimated glomerular filtration rate is determined by the 2020 CKD-EPI equation recommended by the National Kidney Foundation (A Unifying Approach to GFR Estimation: Recommendations of the NKF-ASK Task Force on Reassessing the Inclusion of Race in Diagnosing Kidney Disease, JASN 2020). The CKD-EPI equation should not be used for patients with unstable renal function and has not been validated in children and those over 70. Current interpretive data was last reviewed 2021. Blood 10/31/2023 10:3 4 PM CDT 10/31/2023 11:03 PM CDT us Lamine Noriega MD PhD LAB BLOOD ORDERABLES Marilynn daksha Result [facility] Department [place] [address] * Lipid panel (03/08/2018 1:30 PM CDT) Cholesterol 176 30 - 199 mg/dL [facility] Comment: Interpretive Data Ages < or = 19 years Acceptable: <170 mg/dL Borderline high: 170-199 mg/dL High: >or= 200 mg/dL Ages > or = 20 years Desirable: <200 mg/dL Borderline high: 200-239 mg/dL High: >or= 240 mg/dL Literature References: 1. Expert Panel on Integrated Guidelines for Cardiovascular Health and Risk Reduction in Children and Adolescents. Pediatrics 2011;128:S213 2. NCEP Expert Panel. Circulation 2004;110:227 Current Interpretive Data was last revised on 2018. Triglycerides 125 <=149 mg/dL [facility] Comment: Interpretive Data Ages < or = 9 years Acceptable: <75 mg/dL Borderline high: 75-99 mg/dL High: >or= 100 mg/dL Ages 10 to 20 years Acceptable: <90 mg/dL Borderline high: 90-129 mg/dL High: >or= 130 mg/dL Ages > or = 20 years Desirable: <150 mg/dL Borderline high: 150-199 mg/dL High: 200-499 mg/dL Very high: >or= 499 mg/dL Literature References: 1. Expert Panel on Integrated Guidelines for Cardiovascular Health and Risk Reduction in Children and Adolescents. Pediatrics 2011;128:S213 2. NCEP Expert Panel. Circulation 2004;110:227 Current Interpretive Data was last revised on 2018. HDL 55 >=40 mg/dL [facility] Comment: Interpretive Data Ages < or = 19 years Acceptable: >45 mg/dL Borderline low: 40-45 mg/dL Low: <40 mg/dL Ages > or = 20 years Desirable: >or= 60 mg/dL Low: <40 mg/dL Literature References: 1. Expert Panel on Integrated Guidelines for Cardiovascular Health and Risk Reduction in Children and Adolescents. Pediatrics 2011;128:S213 2. NCEP Expert Panel. Circulation 2004;110:227 Current Interpretive Data was last revised on 2018. LDL, calculated 96 <=129 mg/dL [facility] Comment: Interpretive Data Ages < or = 19 years Acceptable: <110 mg/dL Borderline high: 110-129 mg/dL High: >or= 130 mg/dL Ages > or = 20 years Optimal: <100 mg/dL Near optimal: 100-129 mg/dL Borderline high: 130-159 mg/dL High: >160 mg/dL Literature References: 1. Expert Panel on Integrated Guidelines for Cardiovascular Health and Risk Reduction in Children and Adolescents. Pediatrics 2011;128:S213 2. NCEP Expert Panel. Circulation 2004;110:227 Current Interpretive Data was last revised on 2018. Non-HDL Cholesterol 121 mg/dL [facility] Comment: Interpretive Data Ages < or = 19 years Acceptable: <120 mg/dL Borderline high: 120-144 mg/dL High: >145 mg/dL Ages > or = 20 years When triglycerides are >200 mg/dL, Non-HDL cholesterol is a secondary target of therapy with treatment goals that are 30 mg/dL greater than the LDL cholesterol target. Literature References: 1. Expert Panel on Integrated Guidelines for Cardiovascular Health and Risk Reduction in Children and Adolescents. Pediatrics 2011;128:S213 2. NCEP Expert Panel. Circulation 2003;110:227 Current Interpretive Data was last revised on 2018. Chol/HDL ratio 3 [facility] Blood specimen (specimen) 03/08/2018 1:30 PM CDT 03/08/2018 3:30 PM CDT [facility]ative [facility] - 03/09/2018 1:00 AM CDT Aurelio Massey MD LAB BLOOD ORDERABLES Final Result [facility] One [facility] Department [place] [address] * (ABNORMAL) Hemoglobin A1c (02/19/2018 3:42 PM CDT) Hgb A1C 10.1(H) 4.0 - 5.6 % [facility] Comment:Testing performed by : [facility] [place], [place]., [address] Estimated Average Glucose 243 mg/dL [facility] Comment: The ADA recommends reporting an estimated Average Glucose (eAG) with all Hemoglobin A1c results using the equation derived from a study of 507 normal and diabetic adults. Minority populations were underrepresented and children were not included. (Diabetes Care 31:4811-8369, 2008). The eAG is not equivalent to a fasting glucose. Testing performed by: [facility], [address] [place] [address]., [address] Blood specimen (specimen) 02/19/2018 3:42 PM CDT 02/19/2018 8:10 PM CDT Narrative [facility] - 02/19/2018 8:26 PM CDT us Meaghan Smith NP LAB BLOOD ORDERABL ES Final Result [facility] [address] [facility]. Department [place] [address] from Last 3 Months or Most Recently Relevant to Health Maintenance Additional Health Concerns Infection Onset Date Last Indicated MDR gram neg/ESBL 10/15/2023 10/15/2023 Insurance ON LICENSE OF [facility] ACCESS CHOICE ANTHEM ACCESS CHOICE Advance Directives For more information, please contact: [phone] * Full Code (Latest Code Status on File) Date Activated Date Inactivated Comments 10/31/2023 8:47 PM 11/01/2023 5:43 PM * Full Code Date Activated Date Inactivated Comments 03/08/2018 3:53 PM 03/10/2018 3:46 PM Care Teams Sports Marketer Relationship Specialty [place] [address] [facility] [address] [place] [address] PCP - General Family Medicine 07/24/24
--- OUTSIDE RECORDS SUMMARY | 2024-09-22 13:08 | XMS_ITS | Referral Summary ---
Author Organization [facility] Address [address] [place] [address] Care Team Providers Care Organizational Development Consultant Name Role Phone Lukas Minor NP Primary Care Provider [phone] Encounters Date Type Department Care Team Description 09/08/2024 8:52 AM CDT - 09/08/2024 11:59 PM CDT Hospital Encounter [facility] [address] [place] [address] Rheumatoid arthritis with rheumatoid factor of right hand without organ or systems involvement (HCC) Discharge Disposition: Discharge to home or self care 09/08/2024 Telephone [facility] Rheumatology [address] [place] [address] Medical Office Building [address] [place] [address] Meme Hassan NP 09/08/2024 8:00 AM CDT Office Visit [facility] Rheumatology [address] [place] [address] Medical Office Building [address] [place] [address] Meme Hassan NP Rheumatoid arthritis with rheumatoid factor of right hand without organ or systems involvement (HCC) (Primary Dx); High risk medication use; Primary osteoarthritis involving multiple joints 09/05/2024 Telephone [facility] Neurosurgery [address] [facility] Medical Office Building [address] [place] [address] Steve Myers NP from Last 3 Months Allergies Active Allergy Reactions Criticality Noted Date Comments Clarithromycin Diarrhea,Nausea And Vomiting Low 12/20/2015 Codeine Itching Low 02/08/2011 Other reaction(s): GI Discomfort Gatifloxacin Diarrhea,Nausea And Vomiting Low 12/20/2015 Metformin Nausea only Low 03/08/2018 Medications atorvastatin (LIPITOR) 40 mg tabletIndicat ions:hyperlip idemia Take 1 tablet (40 mg total) by mouth property appraiser before breakfast Active escitalopram (LEXAPRO) 20 mg tabletIndicat ions:Generali zed Anxiety Disorder,slee p Take 1 tablet (20 mg total) by mouth every morning Active TOUVONNIE SOLOSTAR U-300 INSULIN 300 unit/mL (1.5 mL) insulin penIndication s:type 2 diabetes mellitus Inject 80 Units under the skin nightly 11 Active levothyroxine (SYNTHROID, LEVOTHROID) 88 mcg tabletIndicat ions:hypothyr oidism Take 1 tablet (88 mcg total) by mouth property appraiser before breakfast 3 Active multivitamin tabletIndicat ions:Vitamin Deficiency Prevention Take 1 tablet by mouth every morning Active omeprazole (PriLOSEC) 20 mg capsuleIndica tions:Treatme nt of Non-Bleeding Gastric Disorder Take 1 capsule (20 mg total) by mouth nightly 1 Active triamterene-h ydroCHLOROthi azide (triamterene- hydroCHLOROth iazide) 37.5-25 mg per tablet/capsul eIndications: swelling/BP Take 1 tablet/capsule by mouth every morning Active cyclobenzapri ne (FLEXERIL) 5 mg tablet Take 1 tablet (5 mg total) by mouth 3 (three) times a day as needed for muscle spasms. 30 tablet 018 Active OneTouch Ultra Test strip USE TO [...] 1 tablet (10 mg total) by mouth property appraiser before breakfast Active Hyrimoz,CF, Pen 40 mg/0.4 [...] mg total) by mouth every 7 days Tu - until follow-up with Dr. Noriega 36 tablet 1 Active folic acid (FOLVITE) 1 mg tablet Take 1 tablet (1 mg total) by mouth daily 90 tablet 1 2024 Active adalimumab (HUMIRA, CF, SYRINGE) 40 mg/0.4 mL syringe kitIndication s:gave one sample pen exp 10/20, lot # [id number] [facility] [id number] Use as directed 1 each Active adalimumab-ad [...] 1 tablet (25 mg total) by mouth property appraiser before breakfast 2024 Discontinued(T herapy completed) methotrexate 2.5 mg tabletIndicat ions:Rheumato id Arthritis Take 3 tablets (7.5 mg total) by mouth every 7 days - until follow-up with Dr. Noriega 024 2024 Discontinued(Xander lloyd) Jin 7.5 mg/0.5 mL pen injector INJECT 7.5 MG INTO THE SKIN ONCE A WEEK. INDICATIONS: DIABETES 024 2024 Discontinued(T herapy completed) doxycycline hyclate 100 mg capsule Take 1 tablet/capsule (100 mg total) by mouth 2 (two) times a day 025 2024 adalimumab (HUMIRA, CF, SYRINGE) 40 mg/0.4 mL syringe kitIndication s:gave one sample pen exp 10/20, lot # [id number] [facility] [id number] Use as directed 1 each 025 2024 Discontinued adalimumab (HUMIRA, CF, SYRINGE) 40 mg/0.4 mL syringe kitIndication s:gave one sample pen exp 10/20, lot # [id number] [facility] [id number] Use as directed 1 each 025 2024 Discontinued adalimumab (HUMIRA, CF, SYRINGE) 40 mg/0.4 mL syringe kitIndication s:gave one sample pen exp 10/20, lot # [id number] [facility] [id number] Use as directed 1 each 025 2024 Discontinued Active Problems Problem Noted Date Diagnosed Date Other intervertebral disc degeneration, lumbar r egion 06/21/2023 Hemangioma of liver 01/17/2018 Overview (01/17/2018): Added automatically from request for surgery [id number] Cervical radiculopathy 09/27/2016 Allergic rhinitis due to [...] pain 04/25/2017 09/08/2024 Cervical osteophyte 06/14/2016 09/09/19 25 Muscle spasm 06/14/2016 09/08/2024 Sciatica 09/28/2014 09/08/2024 Overview (08/09/2023): Sciatica Knee pain 03/06/2011 09/08/2024 Immunizations Immunization Administration Dates Next Due Hep B Vaccine 12/01/2003,06/16/2003,05/12/2003 Influenza, Quadrivalent, Rec ombinant, Egg Free, Preservative Free, Intramuscular 03/02/2019 Influenza, Quadrivalent, Spl it, Preservative Free, Intramuscular 03/21/2023,03/03/2022,03/10/2021,02/02,02/19/2018,02/23/2016,02/22/2015 Influenza, Trivalent, IM (MDV) 02/18/2017 Influenza, Unspecified 02/20/2018,2016,03/10/2014,02/09 Pneumococcal Polysaccharide PPV23 05/11/2011 Tdap 11/21/2018,05/17/2014 Social History Tobacco Use Types Packs/Day Years [...] on file 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 Gender Identity Not on file Sexual Orientation [...] 09/08/2024 7:34 AM CDT Plan of Treatment Not on file Medical Devices Implanted Type Area Back Up Scan Coordinator Device Identifier Shelf Expiration Date Model / Serial / Lot [employer] Inc Screw Spinal 6.5x40mm Baisden Pedicular Fix Sys Strl [id number] - [id number] Implanted:Qty: 4 on 10/31/2023 by Lamine Noriega MD PhD at [facility] N/A: Spine Lumbar [employer] Inc [id number] / / [employer] Inc Graft Bone Tube 3/4 Filled Divrtd G2 679785 - [id number] - [id number] Implanted:Qty: 1 on 10/31/2023 by Lamine Noriega MD PhD at [facility] N/A: Spine Lumbar [employer] Inc 04/30/2025 [id number] / [id number] 137 / Spine[employer] Inc Set Spinal Baisden Pedicular Fix Sys Strl Screw Pkg 670-0001 - [id number] Implanted:Qty: 4 on 10/31/2023 by Lamien Noriega MD PhD at [facility] N/A: Spine Lumbar [employer] 670-0007 / / Cer[employer] Inc Allograft Bone Putty 2.5cc 700-025 - [id number] Implanted:Qty: 1 on 10/31/2023 by Lamine Noriega MD PhD at [facility] N/A: Spine Lumbar [employer] Inc 10/25/2025 700-025 / / Spineology Inc Rubén Spinal 45mm Crv Baisden Pedicular Fix Sys Strl 670-2799 - [id number] Implanted:Qty: 2 on 10/31/2023 by Lamine Noriega MD PhD at [facility] N/A: Spine Lumbar [employer] Inc 670-0876 / / [employer]ine[employer] Inc Graft Bone Tube 3/4 Filled Divrtd G2 468531 - [id number] - [id number] Implanted:Qty: 1 on 10/31/2023 by Lamine Noriega MD PhD at [facility] N/A: Spine Lumbar [employer] Inc 04/30/2025 [id number] / [id number] 137 / Medtronic Inc Infuse Kit Xs Graft Bone Rhbmp-2 Bovine Collagen Lumbar Taper [id number] - [id number] Implanted:Qty: 1 on 10/31/2023 by Lamine Noriega MD PhD at [facility] N/A: Spine Lumbar Med[employer]onic Inc 11/24/2024 [id number] / / Spine[employer] Inc Cage Fusion Dual Chamb Large Interbody Exp System Optimesh 400-2620 - [id number] Implanted:Qty: 1 on 10/31/2023 by Lamine Noriega MD PhD at [facility] N/A: Spine Lumbar Spine[employer] Inc 05/28/2028 400-2620 / / [id number] [employer] Inc Graft Bone Tube 3/4 Filled Divrtd G2 [id number] - [id number] - [id number] Implanted:Qty: 1 on 10/31/2023 by Lamine Noriega MD PhD at [facility] N/A: Spine Lumbar [employer] Inc 04/30/2025 [id number] / [id number] 137 / [employer]ine[employer] Inc Graft Bone Tube 3/4 Filled Divrtd G2 822198 - [id number] - [id number] Implanted:Qty: 1 on 10/31/2023 by Lamine Noriega MD PhD at [facility] N/A: Spine Lumbar [employer]ine[employer] Inc 04/30/2025 [id number] / [id number] 137 / Procedures Procedure Name Priority Date/Time [...] it. Electronically signed by: Rhianna Watt MD us Meme Hassan DIGITAL PUBLISHING SPECIALIST IMG XR PROCEDURES Final Result * (ABNORMAL) [...] 4 PM CDT 10/31/2023 11:03 PM CDT Lamine Noriega MD PhD LAB BLOOD ORDERABLES Marilynn crooks Result [facility] One [facility] Department [place] [address] * Lipid panel (03/08/2018 1:30 PM CDT) Cholesterol 176 30 - 199 mg/dL [facility] Comment: Interpretive Data Ages < or = [...] revised on 2018. Triglycerides 125 <=149 mg/dL [facility] Comment: Interpretive Data Ages < or [...] revised on 2018. HDL 55 >=40 mg/dL [facility] Comment: Interpretive Data Ages < or [...] on 2018. LDL, calculated 96 <=129 mg/dL [facility] Comment: Interpretive Data Ages < or [...] on 2018. Non-HDL Cholesterol 121 mg/dL [facility] Comment: Interpretive Data Ages < or = [...] last revised on 2018. Chol/HDL ratio 3 [facility] Blood specimen (specimen) 03/08/2018 1:30 PM CDT 03/08/2018 3:30 PM CDT Narrative [facility] - 03/09/2018 1:00 AM CDT Aurelio Massey MD LAB BLOOD ORDERABLES Final Result [facility] One [facility] [place] [address] * (ABNORMAL) Hemoglobin A1c (02/19/2018 3:42 PM CDT) Hgb A1C 10.1(H) 4.0 - 5.6 % [facility] Comment:Testing performed by : [facility], [address] [place] [address], [place]., [address] Estimated Average Glucose 243 mg/dL [facility] Comment: The ADA recommends reporting an estimated Average Glucose (eAG) with all Hemoglobin A1c results using the equation derived from a study of 507 normal and diabetic adults. Minority populations were underrepresented and children were not included. (Diabetes Care 31:1012-3428, 2008). The eAG is not equivalent to a fasting glucose. Testing performed by: [facility], [address] [place] [address]., [address] Blood specimen (specimen) 02/19/2018 3:42 PM CDT 02/19/2018 8:10 PM CDT Narrative [facility] - 02/19/2018 8:26 PM CDT us Meaghanfidelia Slater Grupo Smith NP LAB BLOOD ORDERABL ES Final Result Performing Organization Address City/State/ZIP Co mi Phone Number [facility] [address] [facility] Department [place] [employer] [place] [address] from Last 3 Months or Most Recently Relevant to Health Maintenance Additional Health Concerns Infection Onset Date Last Indicated MDR gram neg/ESBL 10/15/2023 10/15/2023 Insurance Dispop [facility] CHOICE Advance Directives For more information, please contact: [phone] * Full Code (Latest Code Status on File) Date Activated Date Inactivated Comments 10/31/2023 8:47 PM 11/01/2023 5:43 PM * Full Code Date Activated Date Inactivated Comments 03/08/2018 3:53 PM 03/10/2018 3:46 PM Care Teams Organizational Development Consultant Relationship Specialty [place] [address] [place] [address] PCP - General Family Medicine 07/24/24
--- OUTSIDE RECORDS SUMMARY | 2024-09-22 13:08 | XMS_ITS | Encounter Summary ---
Author Organization [facility] Address [address] [place] [address] Care Team Providers Care Novelty Twister Tender Name Role Phone Ulisses Minor MD Primary Care Provide r Ulisses Minor MD Primary Care Provide r Ulisses Minor MD Primary Care Provide r Ulisses Minor MD Primary Care Provide r Encounter Details Date Type Department Care Team (Late st Contact Info) Description 05/23/2012 Abstract [facility] Clinics Conversion , Generic Conversion, Social History [...] - Seasonal 07/13/2023 07/13/2023 024 12:32 AM CARGO ROUTER documented as of this encounter Care Teams Novelty Twister Tender Relationship Specialty [place] [address] [place] [address] PCP - General 12/12/16 [place] [address] [place] [address] PCP - General 12/07/16 12/11/16 [place] [address] [place] [address] PCP - General 08/22/16 12/06/16 [place] [address] [place] [address] PCP - General 07/17/16 08/21/16 documented as of this encounter
--- OUTSIDE RECORDS SUMMARY | 2024-09-22 13:08 | XMS_ITS | Encounter Summary ---
Author Organization [facility] Address [address] [place] [address] Care Team Providers Care Editor & Co Founder Name Role Phone Ulisses Minor MD Primary Care Provide r Ulisses Minor MD Primary Care Provide r Ulisses Minor MD Primary Care Provide r Ulisses Minor MD Primary Care Provide r Encounter Details Date Type Department Care Team (Late st Contact Info) Description 07/17/2011 Abstract [facility] Clinics Conversion , Generic Conversion, Social History [...] - Seasonal 07/13/2023 07/13/2023 024 12:32 AM BLEACH BOILER FILLER documented as of this encounter Care Teams Editor & Co Founder Relationship Specialty [place] [address] [place] [address] PCP - General 12/12/16 [place] [address] [place] [address] PCP - General 12/07/16 12/11/16 [place] [address] [place] [address] PCP - General 08/22/16 12/06/16 [place] [address] [place] [address] PCP - General 07/17/16 08/21/16 documented as of this encounter
--- OUTSIDE RECORDS SUMMARY | 2024-09-22 13:08 | XMS_ITS | Encounter Summary ---
Author Organization [facility] Address [address] [place] [address] Care Team Providers Care Pc Network Technician Name Role Phone Ulisses Minor MD Primary Care Provide r Ulisses Minor MD Primary Care Provide r Ulisses Minor MD Primary Care Provide r Ulisses Minor MD Primary Care Provide r Encounter Details Date Type Department Care Team (Late st Contact Info) Description 06/17/2012 Abstract [facility] Conversion , Generic Conversion, Social History [...] - Seasonal 07/13/2023 07/13/2023 024 12:32 AM HEAVY DUTY MECHANIC documented as of this encounter Care Teams Pc Network Technician Relationship Specialty [place] [address] [place] [address] PCP - General 12/12/16 [place] [address] [place] [address] PCP - General 12/07/16 12/11/16 [place] [address] [place] [address] PCP - General 08/22/16 12/06/16 [place] [address] [place] [address] PCP - General 07/17/16 08/21/16 documented as of this encounter
--- OUTSIDE RECORDS SUMMARY | 2024-09-22 13:08 | XMS_ITS | Clinical Summary ---
Author Organization [facility] Address [address], [facility] [place] [address] Phone Care Team Providers Care Cutter Inspector Name Role Phone Ulisses Minor MD Primary Care Provider + Micky Andino DO Unavailable [phone] Provider, Unknown Unavailable Unavailable Allergies Active Allergy Reactions Criticality Noted Date Comments Codeine Itching Low 02/08/2011 Medications gabapentin (NEURONTIN) 300 MG Capsule Take 300 mg by mouth 3 times daily. Active escitalopram (LEXAPRO) 20 MG Tablet Take 20 mg by mouth daily. Active Meloxicam (MOBIC) 15 MG Tablet Take 15 mg by mouth daily. Active insulin glargine (TOUJEO MAX SOLOSTAR) 300 UNIT/ML Solution Pen-injector 50 Units by Subcutaneous route daily. Active Dulaglutide (TRULICITY) 1.5 MG/0.5ML Solution Pen-injector 1.5 mg by Subcutaneous route once a week. Active triamterene-hyd rochlorothiazid e (MAXZIDE) 37.5-25 MG Tablet Take 1 Tab by mouth daily. Active Omeprazole 20 MG Tablet Delayed Response Take 20 mg by mouth daily. Active atorvastatin (LIPITOR) 40 MG Tablet Take 40 mg by mouth daily. Active estrogens, conjugated, (PREMARIN) 0.9 MG Tablet Take 0.9 mg by mouth daily. Active Canagliflozin (INVOKANA) 300 MG Tablet Take 300 mg by mouth daily. Active quinapril (ACCUPRIL) 10 MG Tablet Take 10 mg by mouth every evening. Active levothyroxine (SYNTHROID) 100 MCG Tablet Take 100 mcg by mouth daily. Active Active Problems Problem Noted Date Diagnosed Date Liver mass 01/02/2018 Breast mass in female 01/02/2018 Family History Medical History Relation Name Comments Cancer Father Stroke Mother Relation Name Status Comments Father Mother Social History Tobacco Use Types Packs/Day Years Used Date Smoking Tobacco: Never Smokeless Tobacco: Never Alcohol Use Standard Drinks/Week Comments Yes 1 (1 standard drink = 0.6 oz pur e alcohol) occasionally Comments Unknown Sex and Gender Information Value Date Recorded Sex Assigned at Not on file Legal Sex Female 3:28 PM CDT Gender Identity Not on file Sexual Orientation Not on file Last Filed Vital Signs Vital Sign Reading Time Taken Comments Blood Pressure 120/82 01/07/2018 10:45 AM CDT Pulse 94 01/07/2018 10:45 AM CDT Temperature 36.7 C (98 F) 01/07/2018 10:45 AM CDT Respiratory Rate 18 01/07/2018 10:4 5 AM CDT Oxygen Saturation 96% 01/07/2018 10: 45 AM CDT Inhaled Oxygen Concentration - - Weight 117.8 kg (259 lb 9.6 oz) 018 10:45 AM CDT Height 162.6 cm (5' 4 ) 01/07/2018 10:4 5 AM CDT Body Mass Index 44.56 01/07/2018 10:45 AM CDT Plan of Treatment Health Maintenance Due Date Last Done Comments Hepatitis C Virus (HCV) Screening 1966 Colonoscopy 2011 Colorectal Cancer Screening 2011 Cologuard 2016 Immunochemical Fecal Occult Blood 2016 Pneumococcal Immunization (50+ years) (1 of 1 - PCV) 2016 Zoster Immunization (1 of 2) 2016 Influenza Immunization (#1) 01/27/202412/2019, 03/02/2019, 02/19/2018, Additional history exists SARS-COV-2 Immunization ( - 2023- season) 2024 Respiratory Syncytial Virus (RSV) Immunization (Adult) (1 - 1-dose 75+ series) 2041 Hepatitis B Immunization Completed 004, 06/16/2003, 05/12/2003 DTaP/Tdap/Td Immunization Discontinued 11/21/2018, TdaP Immunization Completed 11/21/2018, 05/17/2014 Meningococcal Immunization (ACWY) Aged Out No longer eligible based on patient's age to complete this topic Rotavirus Immunization Aged Out No lo nger eligible based on patient's age to complete this [place] [address] [facility] [place] [address] Care Teams Cutter Inspector Relationship Specialty Start Date End Date Ulisses Minor MD PCP - General Internal Medicine 12/28/17 Micky Andino DO Consulting Physician Oncology 12/28/17 Provider, Unknown UNKNOWN 01/15/18
--- OUTSIDE RECORDS SUMMARY | 2024-09-22 13:08 | XMS_ITS | Encounter Summary ---
Author Organization [facility] Address [address] [place] [address] Care Team Providers Care Picking Machine Operator Name Role Phone Ulisses Minor MD Primary Care Provide r Ulisses Minor MD Primary Care Provide r Ulisses Minor MD Primary Care Provide r Ulisses Minor MD Primary Care Provide r Encounter Details Date Type Department Care Team (Late st Contact Info) Description 04/02/2012 Abstract [facility] Clinics Conversion , Generic Conversion, Social [...] - Seasonal 07/13/2023 07/13/2023 024 12:32 AM ACID PURIFIER documented as of this encounter Care Teams Picking Machine Operator Relationship Specialty [place] [address] [place] [address] PCP - General 12/12/16 [place] [address] [place] [address] PCP - General 12/07/16 12/11/16 [place] [address] [place] [address] PCP - General 08/22/16 12/06/16 [place] [address] [place] [address] PCP - General 07/17/16 08/21/16 documented as of this encounter
--- OUTSIDE RECORDS SUMMARY | 2024-09-22 13:09 | XMS_ITS | Encounter Summary ---
Author Organization [facility] Health Address [address] [place] [address] Care Team Providers Care Brokerage Coordinator Name Role Phone Ulisses Minor MD Primary Care Provide r Encounter Details Date Type Department Care Team (Late st Contact Info) Description 06/02/2011 [facility] [address] [place] [address] Social History Tobacco Use Types Packs/Day Years Used Date Smoking Tobacco: Never Smokeless Tobacco: Never Alcohol Use Standard Drinks/Week Comments Yes 0 (1 standard drink = 0.6 oz pur e alcohol) social/rare Comments No Sex and Gender Information Value Date Recorded Sex Assigned at Not on file 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
--- OUTSIDE RECORDS SUMMARY | 2024-09-22 13:09 | XMS_ITS | Encounter Summary ---
Author Organization [facility] Address [address] [place] [address] Care Team Providers Care Teletype Installer Name Role Phone Ulisses Minor MD Primary Care Provide r Encounter Details Date Type Department Care Team (Late st Contact Info) Description 09/13/2022 [employer] Message [facility] [address] [address] [place] [address] [place], [facility] Provider Gurdeep Social History Tobacco Use Types Packs/Day Years Used Date Smoking Tobacco: Never Smokeless Tobacco: Never Alcohol Use Standard Drinks/Week Comments Not Currently 0 (1 standard drink = 0.6 oz pur e alcohol) rarely PHQ-2 Answer Date Recorded Patient Health Questionnaire-2 Score 0 08/03/2022 Comments No Sex and Gender Information Value Date Recorded Sex Assigned at Female 08/11/2024 9:45 AM CDT Legal Sex Female 8:33 PM CDT Gender Identity Not on file Sexual Orientation Not on file COVID-19 Exposure Response Date Recorded In the last 10 days, have yo u been in contact with someone who was confirmed or suspected to have Coronavirus/COVID-19? No / Unsure 08/28/2022 12:48 PM CDT documented as of this encounter Functional Status * RETIRED Are you deaf or do you have serious difficulty hearing Answer Date of Assessment Author Status No 05/10/2020 5:51 PM BANK COMPLIANCE OFFICER Activ e * RETIRED Are you blind or do you have serious difficulty seeing, even when wearing glasses? Answer Date of Assessment Author Status No 05/10/2020 5:51 PM BANK COMPLIANCE OFFICER Activ e * Do you have serious difficulty walking or climbing stairs? Answer Date of Assessment Author Status No 05/10/2020 5:51 PM BANK COMPLIANCE OFFICER Savita Alvarado RN Active * Do you have difficulty dressing or bathing? Answer Date of Assessment Author Status No 05/10/2020 5:51 PM BANK COMPLIANCE OFFICER Savita Alvarado RN Active * Because of a physical, mental, or emotional condition, do you have difficulty doing errands alone such as visiting a doctor's office or shopping? Answer Date of Assessment Author Status No 05/10/2020 5:51 PM BANK COMPLIANCE OFFICER Savita Alvarado RN Active documented as of this encounter Mental Status * Because of a physical, mental, or emotional condition, do you have serious difficulty concentrating, remembering, or making decisions? Answer Entry Date Author Status No 05/10/2020 5:51 PM BANK COMPLIANCE OFFICER Savita Alvarado RN Active documented in this encounter Plan of Treatment Not on file documented as of this encounter Visit Diagnoses Not on filedocumented in this encounter Additional Health Concerns Infection Onset Date Last Indicated Resolved Time Influenza - Seasonal 07/13/2023 07/13/2023 024 12:32 AM BANK COMPLIANCE OFFICER Assessment Noted Time PHQ-9 Depression Total Score: 0 08/13/19 22 10:52 AM CDT documented as of this encounter Care Teams Teletype Installer Relationship Specialty [place] [address] [place] [address] PCP - General 12/12/16 documented as of this encounter
--- OUTSIDE RECORDS SUMMARY | 2024-09-22 13:09 | XMS_ITS | Clinical Summary ---
Author Organization [facility] Address [address] [facility] [place] [address] Care Team Providers Care Truck Hopper Name Role Phone Ulisses Minor MD Primary Care Provide r Source Comments [facility],non-owned Affiliates and Associated Physician Practices is amultiple site organization consisting of ambulatory clinics and hospital sitesin [place], [place], [place] and [place]. This disclosure is being madepursuant to the Care Everywhere program and may not contain all information available regarding this patient. Last updated 18.[facility] Allergies Active Allergy Reactions Criticality Noted Date Comments Codeine Itching,GI Discomfort Low 02/08/2011 Medications * Be aware that medications may not be up to date on this document. Alwaysverify current medications with the patient. insulin detemir (LEVEMIR) injection Inject 22 Units subcutaneously at bedtime. Active OMEPRAZOLE PO Take 20 mg by mouth once daily after breakfast. Instructed to take AM of surgery Active quinapril (ACCUPRIL) 10 MG tablet Take 1 Tab by mouth once daily after breakfast. Instructed to take AM of surgery Active levothyroxine (LEVOTHROID) 125 MCG tablet Take 1 Tab by mouth once daily. Active estrogens, conjugated, (PREMARIN) 0.9 MG tablet Take 1 Tab by mouth once daily. Active eszopiclone (LUNESTA) 3 MG tablet Take 3 mg by mouth nightly as needed. Active multivitamins (ONE A DAY) tablet Take 2 Tabs by mouth once daily. Active vitamin B-1 (THIAMINE) 100 MG tablet Take 100 mg by mouth once daily. Active Cyanocobalamin (VITAMIN B 12 PO) 1,000 mcg every Sunday & Sunday. Active Calcium Citrate-Vitami n D (CALCIUM CITRATE + D PO) Take 1,200 mg by mouth once daily. Active VITAMIN D, CHOLECALCIFERO L, PO Take 1,000 Units by mouth once daily. Active ketorolac (TORADOL) 10 MG tablet Take 1 tablet by mouth every 6 hours as needed for Pain 20 tablet 9 Active Active Problems Problem Noted Date Diagnosed Date Morbid obesity 03/06/2011 DM (diabetes mellitus) 03/06/2011 HTN (hypertension) 03/06/2011 High blood cholesterol 03/06/2011 Hypothyroidism 03/06/2011 Knee pain 03/06/2011 Back pain 03/06/2011 GERD (gastroesophageal reflux disease) 1 Hiatal hernia 03/06/2011 Immunizations Immunization Administration Dates Next Due INFLUENZA VACCINE 02/09/2011 PNEUMOCOCCAL PPSV23 05/11/2011 TDAP (7yrs+) 11/21/2018 Family History Medical History Relation Name Comments Hypertension Brother Cancer Father Diabetes Mother Hypercholesterolemia Mother Hypertension Mother Diabetes Paternal Grandfather Diabetes Paternal Grandmother Diabetes Sister 1 Hypercholesterolemia Sister 1 Hypertension Sister 1 Diabetes Sister 2 Diabetes Sister 3 Relation Name Status Comments Brother Father Mother Paternal Grandfather Paternal Grandmother Sister 1 Sister 2 Sister 3 Social History Tobacco Use Types Packs/Day Years Used Date Smoking Tobacco: Never Smokeless Tobacco: Never Alcohol Use Standard Drinks/Week Comments Yes 0 (1 standard drink = 0.6 oz pur e alcohol) social/rare Comments No Sex and Gender Information Value Date Recorded Sex Assigned at Not on file 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 Gender Identity Not on file Sexual Orientation Not on file Last Filed Vital Signs Vital Sign Reading Time Taken Comments Blood Pressure 129/87 11/21/2018 2:18 PM CDT Pulse 90 11/21/2018 2:18 PM CDT Temperature 36.7 C (98 F) 11/21/2018 2:18 PM CDT Respiratory Rate 20 11/21/2018 2:18 PM CDT Oxygen Saturation 96% 11/21/2018 2:18 PM CDT Inhaled Oxygen Concentration - - Weight 106.1 kg (234 lb) 11/21/2018 12:24 PM CDT Height 162.6 cm (5' 4 ) 11/21/2018 12:24 PM CDT Body Mass Index 40.17 11/21/2018 12:24 PM CDT Plan of Treatment Health Maintenance Due Date Last Done Comments COLOGUARD (AGES 45-75) - COLON CA SCREENING 1966 COLON MONITORING 1966 COLONOSCOPY - COLON CA SCREENING 1966 CT COLONOGRAPHY - COLON CA SCREENING 1966 Colorectal Cancer Screening 1966 FIT - COLON CA SCREENING 1966 FLEX SIG - COLON CA SCREENING 1966 LIPID TESTING 1966 MAMMOGRAM 1966 HIV SCREENING 1981 HEPATITIS C SCREENING 05/02/1984 HEPATITIS B VACCINE (1 of 3 - 19+ 3-dose series) 1985 PNEUMOCOCCAL VACCINE 50+ (2 of 2 - PCV) 2016 05/11/2011 ZOSTER VACCINE (1 of 2) 2016 COVID-19 VACCINE (1 - season) 2024 DEPRESSION SCREENING 05/28/2024 INFLUENZA VACCINE (Season Ended) 2025 02/20/2018, 02/19/2018, 02/19/2017, Additional history exists DTAP/TDAP/TD VACCINES (2 - Td or Tdap) 11/21/2028 11/21/2018 HIB VACCINE Aged Out No longer eligi ble based on patient's age to complete this topic HPV VACCINE Aged Out No longer eligi ble based on patient's age to complete this topic MENINGOCOCCAL (Group B) VACCINE SHARED DECISION-MAKING Aged Out No longer eligible based on patient's age to complete this topic MENINGOCOCCAL GROUPS A/C/Y/W VACCINE Aged Out No longer eligible based on patient's age to [place] [address] [facility] [place] [address] Advance Directives * FULL RESUSCITATION (Latest Code Status on File) Date Activated Date Inactivated Comments 05/10/2011 1:30 PM 05/12/2011 4:27 AM Care Teams Truck Hopper Relationship Specialty Start Date End Date Ulisses Minor MD [address] [place] [address] PCP - General Pediatrics 01/01/12
--- OUTSIDE RECORDS SUMMARY | 2024-09-22 13:09 | XMS_ITS | Encounter Summary ---
Author Organization [facility] Address [address] [place] [address] Care Team Providers Care Legal Specialist Name Role Phone Ulisses Minor MD Primary Care Provide r Encounter Details Date Type Department Care Team (Late st Contact Info) Description 04/02/2017 Prep for Procedure [facility] [place] [address] [id number] Sandra Mckeon MD [facility] [address] [place], [place] [phone] Social History Tobacco Use Types Packs/Day Years Used Date Smoking Tobacco: Never Smokeless Tobacco: Never Alcohol Use Standard Drinks/Week Comments Yes 0 (1 standard drink = 0.6 oz pur e alcohol) rarely Comments Unknown Sex and Gender Information Value [...] - Seasonal 07/13/2023 07/13/2023 024 12:32 AM MICROSTRATEGY ARCHITECT documented as of this encounter Care Teams Legal Specialist Relationship Specialty [place] [address] [place] [address] PCP - General 12/12/16 documented as of this encounter
--- OUTSIDE RECORDS SUMMARY | 2024-09-22 13:09 | XMS_ITS | Encounter Summary ---
Author Organization [facility] Address [address] [place] [address] Care Team Providers Care Web Applications Administrator Name Role Phone Ulisses Minor MD Primary Care Provide r Ulisses Minor MD Primary Care Provide r Ulisses Minor MD Primary Care Provide r Ulisses Minor MD Primary Care Provide r Encounter Details Date Type Department Care Team (Late st Contact Info) Description 06/01/2016 Abstract [facility] Clinics Conversion , Generic Conversion, [...] - Seasonal 07/13/2023 07/13/2023 024 12:32 AM UNDERGROUND MINING SECTION FOREMAN documented as of this encounter Care Teams Web Applications Administrator Relationship Specialty [place] [address] [place] [address] PCP - General 12/12/16 [place] [address] [place] [address] PCP - General 12/07/16 12/11/16 [place] [address] [place] [address] PCP - General 08/22/16 12/06/16 [place] [address] [place] [address] PCP - General 07/17/16 08/21/16 documented as of this encounter
--- OUTSIDE RECORDS SUMMARY | 2024-09-22 13:09 | XMS_ITS | Encounter Summary ---
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
--- OUTSIDE RECORDS SUMMARY | 2024-09-22 13:09 | XMS_ITS | Encounter Summary ---
Author Organization [facility] Address [address] [place] [address] Care Team Providers Care Lining Ironer Name Role Phone Ulisses Minor MD Primary Care Provide r Encounter Details Date Type Department Care Team (Late st Contact Info) Description 03/31/2017 [place] [address] , Generic ConversionMD Social History Tobacco Use [...] - Seasonal 07/13/2023 07/13/2023 024 12:32 AM POTATO CHIP PROCESSING SUPERVISOR documented as of this encounter Care Teams Lining Ironer Relationship Specialty [place] [address] [place] [address] PCP - General 12/12/16 documented as of this encounter
--- OUTSIDE RECORDS SUMMARY | 2024-09-22 13:09 | XMS_ITS | Encounter Summary ---
Author Organization [facility] Health Address [address] [place] [address] Care Team Providers Care Outdoor Emergency Care Technician Name Role Phone Ulisses Minor MD Primary Care Provide r Encounter Details Date Type Department Care Team (Late st Contact Info) Description 05/12/2011 [facility] [address] [place] [address] Social History Tobacco Use Types Packs/Day Years Used Date Smoking Tobacco: Never Smokeless Tobacco: Never Alcohol Use Standard Drinks/Week Comments Yes 0 (1 standard drink = 0.6 oz pur e alcohol) social/rare Comments No Sex and Gender Information Value Date Recorded Sex Assigned at Not on file 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
--- OUTSIDE RECORDS SUMMARY | 2024-09-22 13:09 | XMS_ITS | Encounter Summary ---
Author Organization [facility] Address [address] [place] [address] Care Team Providers Care Body Coverer Name Role Phone Ulisses Minor MD Primary Care Provide r Ulisses Minor MD Primary Care Provide r Ulisses Minor MD Primary Care Provide r Ulisses Minor MD Primary Care Provide r Encounter Details Date Type Department Care Team (Late st Contact Info) Description 04/17/2016 Abstract [facility] Clinics Conversion , Generic Conversion, [...] - Seasonal 07/13/2023 07/13/2023 024 12:32 AM ELECTRIC PLATER documented as of this encounter Care Teams Body Coverer Relationship Specialty [place] [address] [place] [address] PCP - General 12/12/16 [place] [address] [place] [address] PCP - General 12/07/16 12/11/16 [place] [address] [place] [address] PCP - General 08/22/16 12/06/16 [place] [address] [place] [address] PCP - General 07/17/16 08/21/16 documented as of this encounter
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
[2024-09-22 15:15] VITALS: BP 133/71; PULSE 83; RESP 18; TEMP 36.6; O2SAT 100
[2024-09-22] MEDS: ACETAMINOPHEN 500 MG TABLET 1000 MG PO (16:22)
[2024-09-22] MEDS: IBUPROFEN 600 MG TABLET PO (17:20)
[2024-09-22] MEDS: CYCLOBENZAPRINE HCL 10 MG TABLET PO (17:20)
[2024-09-22 17:49] VITALS: BP 141/87; PULSE 97; RESP 18; O2SAT 100
--- OUTSIDE RECORDS SUMMARY | 2024-09-22 18:33 | XMS_ITS | Encounter Summary ---
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
--- OUTSIDE RECORDS SUMMARY | 2024-09-22 18:33 | XMS_ITS | Encounter Summary ---
Author Organization [facility] Address [address] [facility] [place] [address] Care Team Providers Care Exercise Specialist Name Role Phone Ulisses Minor MD Primary Care Provide r Encounter Details Date Type Department Care Team (Late st Contact Info) Description 05/12/2011 [facility] [place] [address] [place] [address] Social History Tobacco Use Types Packs/Day Years Used Date Smoking Tobacco: Never Smokeless Tobacco: Never Alcohol Use Standard Drinks/Week Comments Yes 0 (1 standard drink = 0.6 oz pur e alcohol) social/rare Comments No Sex and Gender Information Value Date Recorded Sex Assigned at Not on file Legal Sex Female 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
--- OUTSIDE RECORDS SUMMARY | 2024-09-22 18:33 | XMS_ITS | Encounter Summary ---
Author Organization [facility] Address [address] [place] [address] Care Team Providers Care Power Plant Manager Name Role Phone Ulisses Minor MD Primary Care Provide r Encounter Details Date Type Department Care Team (Late st Contact Info) Description 06/02/2011 [facility] [place] [address] [place] [id number] Social History Tobacco Use Types Packs/Day Years Used Date Smoking Tobacco: Never Smokeless Tobacco: Never Alcohol Use Standard Drinks/Week Comments Yes 0 (1 standard drink = 0.6 oz pur e alcohol) social/rare Comments No Sex and Gender Information Value Date Recorded Sex Assigned at Not on file Legal Sex Female 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
--- OUTSIDE RECORDS SUMMARY | 2024-09-22 18:33 | XMS_ITS | Encounter Summary ---
Author Organization [facility] Address [address] [place] [address] Care Team Providers Care Vp Corporate Partnerships Name Role Phone Ulisses Minor MD Primary Care Provide r Ulisses Minor MD Primary Care Provide r Ulisses Minor MD Primary Care Provide r Ulisses Minor MD Primary Care Provide r Encounter Details Date Type Department Care Team (Late st Contact Info) Description 05/23/2012 Abstract [facility] Conversion , Generic Conversion, [...] - Seasonal 07/13/2023 07/13/2023 024 12:32 AM TELEPHONE ANSWERER documented as of this encounter Care Teams Vp Corporate Partnerships Relationship Specialty [place] [address] [place] [address] PCP - General 12/12/16 [place] [address] [place] [address] PCP - General 12/07/16 12/11/16 [place] [address] [place] [address] PCP - General 08/22/16 12/06/16 [place] [address] [place] [address] PCP - General 07/17/16 08/21/16 documented as of this encounter
--- OUTSIDE RECORDS SUMMARY | 2024-09-22 18:33 | XMS_ITS | Encounter Summary ---
Author Organization [facility] Address [address] [place] [address] Care Team Providers Care Ambulette Driver Name Role Phone Ulisses Minor MD Primary Care Provide r Ulisses Minor MD Primary Care Provide r Ulisses Minor MD Primary Care Provide r Ulisses Minor MD Primary Care Provide r Encounter Details Date Type Department Care Team (Late st Contact Info) Description 06/01/2016 Abstract [facility] Conversion , Generic Conversion, Social [...] - Seasonal 07/13/2023 07/13/2023 024 12:32 AM VISION CARE ASSOCIATE documented as of this encounter Care Teams Ambulette Driver Relationship Specialty [place] [address] [place] [id number] PCP - General 12/12/16 [place] [address] [place] [address] PCP - General 12/07/16 12/11/16 [place] [address] [place] [id number] PCP - General 08/22/16 12/06/16 [place] [address] [place] [id number] PCP - General 07/17/16 08/21/16 documented as of this encounter
--- OUTSIDE RECORDS SUMMARY | 2024-09-22 18:33 | XMS_ITS | Encounter Summary ---
Author Organization [facility] Address [address] [place] [address] Care Team Providers Care Jammer Hooker Name Role Phone Ulisses Minor MD Primary Care Provide r Encounter Details Date Type Department Care Team (Late st Contact Info) Description 04/02/[address] [facility] [place] [address] [phone] Sandra Mckeon MD [facility] [address] [place], [place] [id number] Social History Tobacco Use Types Packs/Day Years [...] - Seasonal 07/13/2023 07/13/2023 024 12:32 AM ENGINEERING RESEARCH MANAGER documented as of this encounter Care Teams Jammer Hooker Relationship Specialty [place] [address] [place] [address] PCP - General 12/12/16 documented as of this encounter
--- OUTSIDE RECORDS SUMMARY | 2024-09-22 18:33 | XMS_ITS | Encounter Summary ---
Author Organization [facility] Address [address] [place] [address] Care Team Providers Care Baggage Screener Name Role Phone Ulisses Minor MD Primary Care Provide r Encounter Details Date Type Department Care Team (Late st Contact Info) Description 09/13/2022 eyesFinder Message [facility] [address] [place] [address] Pita, [facility] Provider Gurdeep Social History Tobacco Use Types [...] Assessment Author Status No 05/10/2020 5:51 PM FRONT FACER Activ e * RETIRED Are you blind or do you have serious difficulty seeing, even when wearing glasses? Answer Date of Assessment Author Status No 05/10/2020 5:51 PM FRONT FACER Activ e * Do you have serious difficulty walking or climbing stairs? Answer Date of Assessment Author Status No 05/10/2020 5:51 PM FRONT FACER Savita Alvarado RN Active * Do you have difficulty dressing or bathing? Answer Date of Assessment Author Status No 05/10/2020 5:51 PM FRONT FACER Savita Alvarado RN Active * Because of a physical, mental, or emotional condition, do you have difficulty doing errands alone such as visiting a doctor's office or shopping? Answer Date of Assessment Author Status No 05/10/2020 5:51 PM FRONT FACER Savita Alvarado RN Active documented as of this encounter Mental Status * Because of a physical, mental, or emotional condition, do you have serious difficulty concentrating, remembering, or making decisions? Answer Entry Date Author Status No 05/10/2020 5:51 PM FRONT FACER Savita Alvarado RN Active documented in this encounter Plan of Treatment Not on file documented as of this encounter Visit Diagnoses Not on filedocumented in this encounter Additional Health Concerns Infection Onset Date Last Indicated Resolved Time Influenza - Seasonal 07/13/2023 07/13/2023 024 12:32 AM FRONT FACER Assessment Noted Time PHQ-9 Depression Total Score: 0 08/13/19 22 10:52 AM CDT documented as of this encounter Care Teams Baggage Screener Relationship Specialty [place] [address] [place] [address] PCP - General 12/12/16 documented as of this encounter
--- OUTSIDE RECORDS SUMMARY | 2024-09-22 18:33 | XMS_ITS | Clinical Summary ---
Author Organization [facility] Address [address] [place] [address] Care Team Providers Care Cyanide Furnace Operator Name Role Phone Ulisses Minor MD [...] hyperglycemia, with long-term current use of insulin ([facility]) 1 each by Does not apply route daily. 1 kit 022 Active Insulin Pen Needle (PEN NEEDLES) 31G X 8 MM MiscIndications: Type 2 diabetes mellitus with diabetic polyneuropathy, with long-term current use of insulin ([facility]) 1 each by Does not apply route [...] right hand without organ or systems involvement ([facility]) TAKE 1 TABLET BY MOUTH TWICE A [...] polyneuropathy, with long-term current use of insulin ([facility]) USE TO TEST THREE TIMES DAILY FOR DIABETES 300 strip 5 025 Active gabapentin (NEURONTIN) 600 MG tabletIndication s:Spinal stenosis of lumbar region with neurogenic claudication Take 1 tablet (600 mg total) by mouth 3 (three) times daily. 270 tablet 3 023 2024 Discontinued(T herapy completed) Glucose Blood (Adrenaline MobilityTOUCH ULTRA) test stripIndications :Type 2 diabetes mellitus with diabetic polyneuropathy, with long-term current use of insulin ([facility]) USE TO TEST THREE TIMES DAILY FOR DIABETES 300 strip 5 024 2024 Discontinued predniSONE (DELTASONE) 10 mg tabletIndication s:Rheumatoid arthritis involving both hands with positive rheumatoid factor ([facility]) TAKE 1 TABLET BY MOUTH EVERY DAY [...] ng multiple sites with positive rheumatoid factor ([facility]) 12/24/2023 Spondylolisthesis of lumbar region 06/21/2023 Other intervertebral disc degeneration, lumbar r egion 06/21/2023 Other intervertebral disc displacement, lumbar r egion 06/21/2023 Foraminal stenosis of lumbar region 06/21/2023 Radiculopathy, lumbar region 06/21/2023 Spinal stenosis of lumbar re gion with neurogenic claudication 06/21/2023 Acute bilateral low back pain with left-sided sc iatica 03/03/2022 Psoriatic arthritis ([facility]) 06/20/2021 COVID-19 05/10/2020 S/P cervical spinal fusion 11/05/2018 Right arm pain 11/05/2018 Breast mass in female 01/02/2018 Hemangioma of liver 01/02/2018 Overview (08/13/2020): Overview: Added automatically from request for surgery [id number] Added automatically from request for surgery [id number] Liver mass 01/02/2018 Myofascial pain 04/25/2017 Cervical [...] hyperglycemia, with long-term current use of insulin ([facility]) 03/06/2011 Overview (05/30/2018): Type 2 diabetes mellitus without complications Morbid obesity 03/06/2011 Hiatal hernia 03/06/2011 DM (diabetes mellitus) ([facility]) 011 Resolved Problems Problem Noted Date Diagnosed Date Resolved Date HTN (hypertension) 03/06/2011 4 High blood cholesterol 03/06/201112/23 Encounters Date Type Department Care Team Description 09/10/2024 1:15 PM CDT Office Visit [facility] [id number] [place] [phone] Faheem Valero MD Consult (Elevated calcium score); Lipids 09/10/2024 Travel 09/01/2024 3:00 PM CDT Office Visit [facility] [address] [place] [address] Gerda Minor FNP Follow Up (Cough. Finished antibiotics and only seen 30-40 %. Has worsened the past 4-5 days. Taking Robitussin DM and Guaifenesin AC. ) 09/01/2024 Travel 08/14/2024 MyChart Message Enc [facility] [address] [place] [address] [facility] Provider Prednisone 08/11/2024 1:40 PM CDT Telemedicine [facility] [address] [place] [address] Gerda Minor FNP Sore Throat (Symptoms x at least 3 days. ); Cough (Using inhaler. Using Day/NyQuil. ); Wheezing ; Body Aches 08/11/2024 7:39 AM CDT - 08/11/2024 9:25 AM CDT Emergency [facility] Emergency Room [address] [place] [address] Deejay Toledo MD Shoulder Pain Discharge Disposition: Home or Self Care (Routine Discharge) 08/11/2024 Travel 08/08/2024 Medication Management [facility] [address] [place] [address] Gerda Minor FNP 07/17/2024 Telephone [facility] [address] [place] [address] Ulisses Minor MD Referral 07/10/2024 8:40 AM CUSTOMER TRAINER - 07/10/2024 11:59 PM CUSTOMER TRAINER Hospital Encounter Health system Laboratory [address] [place] [address] Rosangela Clayton MD Discharge Disposition: Home or Self Care (Routine Discharge) 07/10/2024 Orders Only Health system Laboratory [address] [place] [address] Rosangela Clayton MD 07/10/2024 Travel 06/26/2024 Telephone [facility] on [facility], [address] [address] Yvette Albrecht RMA Consult (/) 06/25/2024 Telephone [facility] [address] [place] [address] Gerda Minor FNP Results from Last 3 Months Immunizations Immunization Administration Dates Next Due FLUCELVAX (ccIIV3, TRIVALENT, 0.5mL) 03/17/2024 Fluzone 6 Months+ Quad (0.5 mL Prefilled Syringe) 03/03/2022,03/10/2021 Hepatitis B 12/01/2003,06/16/2003,05/12/2003 Influenza (Generic) 02/09/2011 Influenza Adult (Generic) 03/21/2023,,02/03/2020,2018,02/20/2018,02/19/2018,02/19/2017,0 02/18/2017,02/23/2016,02/22/2015, 014 MODERNA COVID-19 (12+) MRNA, LNP-S, PF, 100 MCG/ 0.5 ML DOSE 08/07/2020,07/10/2020 MODERNA COVID-19 ([facility] BPM CONSULTANT EMANI ABY), MRNA, LNP-S, PF, 50 MCG/ [...] Hepatitis C Completed 09/06/2023, 06/20/2021 PHQ-2 (Physician Cunningham) Completed 09/01/2024 Meningococcal B Vaccine Aged Out [...] C-REACTIVE PROTEIN Routine 07/10/2024 8: 48 AM CUSTOMER TRAINER Encounter for medication monitoring RA (rheumatoid arthritis) ([facility]) SED RATE, ERYTHROCYTE (ESR) Routine 07/10/2024 8:48 AM CUSTOMER TRAINER Encounter for medication monitoring RA (rheumatoid arthritis) ([facility] HHS/HCC) HC BUN Routine 07/10/2024 8:48 AM CUSTOMER TRAINER Encounter for medication monitoring RA (rheumatoid arthritis) ([facility] HHS/HCC) HEPATIC FUNCTION PANEL Routine 8:48 AM CUSTOMER TRAINER Encounter for medication monitoring RA (rheumatoid arthritis) ([facility] HHS/HCC) CBC W/DIFF AUTOMATED Routine 07/10/2024 8:48 AM CUSTOMER TRAINER Encounter for medication monitoring RA (rheumatoid arthritis) ([facility] HHS/HCC) DIABETIC RETINOPATHY EXAM (POSITIVE)(SCAN ORDER) Routine [...] arthritis) LIPID PANEL Routine 07/24/2023 7:46 AM CUSTOMER TRAINER COLOGUARD (EXACT SCIENCE) Routine 2022 11:30 AM CDT Colon cancer screening from Last 3 Months or Most Recently Relevant to Health Maintenance Results * ELECTROCARDIOGRAM (09/10/2024 1:19 PM CDT) 09/10/2024 1:19 PM CDT Narrative [facility] - 09/10/2024 7:32 PM CDT [facility] Test Date: 2024-09-10 Pat Name: VANESA LUNA Department: 107 Room: Gender: Female Flight Dynamicist: agnieszka : 1965 Requested By: FAHEEM VALERO Order Number: [id number] Reading : Faheem Valero Measurements Intervals [place] Rate: 87 P: 52 HI: 164 QRS: 25 QRSD: 93 T: 50 QT: 366 QTc: 442 Interpretive Statements SINUS RHYTHM Procedure Note Faheem Valero MD - 09/10/2024 [facility] Test Date: 2024-09-10 Pat Name: VANESA LUNA Department: 107 Room: Gender: Female Flight Dynamicist: agnieszka : 1965 Requested By: FAHEEM VALERO Order Number: [id number] Reading : Faheem Valero Measurements Intervals [place] Rate: 87 P: 52 HI: 164 QRS: 25 QRSD: 93 T: 50 [...] 8:39 AM Narrative 08/11/2024 8:40 AM CDT [address] [place] [address] IMAGING STUDIES: XR SHOULDER RT 3V DATE: [...] Note Juan David Rodriguez MD - 08/11/[address] [place] [address] IMAGING STUDIES: XR SHOULDER RT 3VDATE: 08/11/2024 8:04 AM COMPARISON: No comparisons. CLINICAL HISTORY: fall, shoulder pain . Prior rotator cuff surgery [id number]. FINDINGS: No evidence of acute fracture, dislocation [...] (ABNORMAL) BUN CREATININE RATIO (07/10/2024 8:48 AM CUSTOMER TRAINER) BUN 17 7 - 18 MG/DL 07/10/2024 10:59 AM [facility] CREATININE S/P/B 1.10(H) 0.55 - 1.02 MG/DL 07/10/2024 10:59 AM [facility] GFR ESTIMATE 58(L) >90 ML/MIN/1.7 3 M2 07/10/2024 10:59 AM [facility] Comment: NOTE: eGFR is not calculated for patients <18 years of age. This is an estimated GFR calculation using the new CKD EPI creatinine equation without race and so does not require a correction factor for race. This estimated GFR should not be used for calculating drug doses. BUN CREATININE RATIO 15.5 6 - 26 07/10/2024 10:59 AM [facility] 07/10/2024 8:48 AM CUSTOMER TRAINER Rosangela Clayton MD LABORATORY Final Result Performing Organization Address City/[facility]/ZIP Co de Phone Number [facility] [address] [place] [address], * SED RATE, ERYTHROCYTE (ESR) (07/10/2024 8:48 AM CUSTOMER TRAINER) ESR 4 <30 MM/HR 07/10/2024 10:10 AM CUSTOMER TRAINER [facility] 07/10/2024 8:48 AM CUSTOMER TRAINER us Rosangela Clayton MD LABORATORY Final Result Performing Organization Address City/[facility]/ZIP Co de Phone Number [facility] [address] [place] [address], * (ABNORMAL) HEPATIC FUNCTION PANEL (07/10/2024 8:48 AM CUSTOMER TRAINER) TOTAL PROTEIN S/P/B 6.4 6.4 - 8.2 G/DL 07/10/2024 10:59 AM [facility] ALBUMIN S/P/B 3.4 3.4 - 5.0 G/DL 07/10/2024 10:59 AM [facility] BILIRUBIN TOTAL S/P/B 0.4 0.2 - 1.2 MG/DL 07/10/2024 10:59 AM [facility] Comment: THIS ASSAY IS NOT RECOMMENDED FOR PATIENTS UNDERGOING TREATMENT WITH ELTROMBOPAG DUE TO THE POTENTIAL FOR FALSELY ELEVATED RESULTS. BILIRUBIN DIRECT S/P/B 0.2 0.0 - 0.2 MG/DL 07/10/2024 10:59 AM [facility] BILIRUBIN INDIRECT S/P/B 0.2 0.0 - 0.9 MG/DL 07/10/2024 10:59 AM [facility] ALKALINE PHOSPHATASE S/P/B 40(L) 50 - 136 U/L 07/10/2024 10:59 AM [facility] AST 31 15 - 37 U/L 07/10/2024 10:59 AM [facility] ALT 43 14 - 55 U/L 07/10/2024 10:59 AM [facility] A/G RATIO 1.1 1.0 - 2.0 RATIO 07/10/2024 10:59 AM [facility] 07/10/2024 8:48 AM CUSTOMER TRAINER us Rosangela Clayton MD LABORATORY Final Result [facility] [address] [place] [address], [place] [phone] * C-REACTIVE PROTEIN (07/10/2024 8:48 AM CUSTOMER TRAINER) Pathologist [facility] C-REACTIVE PROTEIN 0.10 <0.3 mg/dL 07/10/2024 10:59 AM [facility] 07/10/2024 8:48 AM CUSTOMER TRAINER Rosangela Clayton MD LABORATORY Final Result [facility] [address] [place] [id number], [place] [phone] * (ABNORMAL) CBC W/DIFF AUTOMATED (07/10/2024 8:48 AM CUSTOMER TRAINER) [facility] WBC 4.48(L) 4.50 - 11.00 x10'3/uL 07/10/2024 9:14 AM [facility] RBC 4.40 4.20 - 5.40 x10'6/uL 07/10/2024 9:14 AM [facility] HGB 12.7 12.0 - 16.0 G/DL 07/10/2024 9:14 AM [facility] HCT 38.8 38.0 - 48.0 % 07/10/2024 9:14 AM [facility] MCV 88.2 81.0 - 99.0 FL 07/10/2024 9:14 AM [facility] MCH 28.9 27.0 - 31.0 PG 07/10/2024 9:14 AM [facility] MCHC 32.7 32.0 - 36.0 G/DL 07/10/2024 9:14 AM [facility] RDW 13.8 11.5 - 14.5 % 07/10/2024 9:14 AM [facility] PLT 248 130 - 400 x10'3/uL 07/10/2024 9:14 AM [facility] MPV 9.3 9.3 - 12.2 FL 07/10/2024 9:14 AM [facility] CBC COMMENT AUTOMATED RBC MORPHOLOGY AND PLATELET EVALUATION NORMAL 07/10/2024 9:14 AM [facility] NEUTROPHILS % 52.6 % 07/10/2024 9:14 AM [facility] LYMPHOCYTES % 35.5 % 07/10/2024 9:14 AM [facility] MONOCYTES % 9.4 % 07/10/2024 9:14 AM [facility] EOSINOPHILS 1.6 % 07/10/2024 9:14 AM [facility] BASOPHILS 0.7 % 07/10/2024 9:14 AM [facility] IMMATURE GRANS % 0.2 % 07/10/19 25 9:14 AM [facility] NRBC % 0.0 % 07/10/2024 9:14 AM [facility] ABS. NEUTROPHILS TOTAL 2.36 1.80 - 7.70 x10'3/uL 07/10/2024 9:14 AM [facility] ABS. LYMPHOCYTES 1.59 1.00 - 4.80 x10'3/uL 07/10/2024 9:14 AM [facility] ABS. MONOCYTES 0.42 0.24 - 0.86 x10'3/uL 07/10/2024 9:14 AM [facility] ABS. EOSINOPHILS 0.07 0.04 - 0.36 x10'3/uL 07/10/2024 9:14 AM [facility] ABS. BASOPHILS 0.03 0.01 - 0.08 x10'3/uL 07/10/2024 9:14 AM CUSTOMER TRAINER [facility] ABS. IMMATURE GRANULOCYTES 0.01 0.00 - 0.49 x10'3/uL 07/10/2024 9:14 AM CUSTOMER TRAINER [facility] ABS. NUCLEATED RBC'S 0.00 0.00 - 0.01 x10'3/uL 07/10/2024 9:14 AM CUSTOMER TRAINER [facility] 07/10/2024 8:48 AM CUSTOMER TRAINER Rosangela Clayton MD LABORATORY Final Result Performing Organization Address [facility]/ZIP Co de Phone Number [facility] [address] [place] [address], [place] [phone] * DIABETIC RETINOPATHY EXAM (POSITIVE) (02/28/2024) us [facility] Scanned SCANNING Final Resu lt Performing Organization Address [facility] Co de Phone Number [facility] * MG SCREENING W ARACELI MEI [...] change from the prior exam. Gerda Minor [facility] Final Resul t * A1C (BACK OFFICE) (12/24/2023) HGB A1C 7.4 % [place] [address] [place] 12/24/2023 Gerda Minor [facility] Final Resul t [place] [address] [place] [address] [address] [place] [address], [place] [phone] * HEPATITIS C ANTIBODY (09/06/2023 3:19 PM CDT) Pathologist [facility] HEPATITIS C AB NON-REACTI VE NON-REACTI VE 09/06/2023 8:54 PM CDT [facility] 09/06/2023 3:19 PM CDT Rosangela Clayton MD LABORATORY Final Result [facility] [address] [place] [address], [place] [phone] * (ABNORMAL) LIPID PANEL (07/24/2023 7:46 AM CUSTOMER TRAINER) Pathologist [facility] CHOLESTEROL 154 <200 mg/dL [facility] HDL 36(L) > OR = 50 mg/dL [facility] TRIGLYCERIDES 208(H) <150 mg/dL [facility] Comment: If a non-fasting specimen was collected, consider repeat triglyceride testing on a fasting specimen if clinically indicated. Aura et al. J. of Clin. Lipidol. 2015;9:129-169. LDL (CALCULATED) 88 mg/dL (calc) [facility] Comment: Reference range: <100 Desirable range <100 mg/dL for primary prevention; <70 mg/dL for patients with CHD or diabetic patients with > or = 2 CHD risk factors. LDL-C is now calculated using the Tracy calculation, which is a validated novel method providing better accuracy than the Friedewald equation in the estimation of LDL-C. Michael SS et al. MANE. 2013;310(19): 5181-8764 (http://education.[employer]/faq/BIK199) CHOL/HDL RATIO 4.3 <5.0 (calc) [facility] NON HDL CHOLESTEROL 118 <130 mg/dL (calc) [facility] Comment: For patients with diabetes plus 1 major ASCVD risk factor, treating to a non-HDL-C goal of <100 mg/dL (LDL-C of <70 mg/dL) is considered a therapeutic option. 07/24/2023 7:46 AM CUSTOMER TRAINER 07/24/2023 7:50 AM CUSTOMER TRAINER Narrative [facility] - MISAEL ORDERS - 07/25/2023 7:36 AM CUSTOMER TRAINER FASTING:YES FASTING: YES Resulting Agency Comment Performing Organization Information: Site ID: [id number] Name: Adrien Mccoy Address: [address] [place] [address] Director: Gladys Carter MD Gerda Minor [facility] Final Resul t ADRIEN ULRICH [facility] [address] [place] [address] * COLOGUARD (EXACT SCIENCE) (01/08/2023 11:30 AM CDT) COLOGUARD RESULT Negative Negative [facility] (CLIA #:[id number]) Comment: NEGATIVE TEST RESULT. A negative Cologuard [...] Amor et al, N Engl J Med 2014;370(14):5561-5678) The normal value (reference range) for this assay is negative. COLOGUARD RE-SCREENING RECOMMENDATION: Periodic colorectal cancer screening is an important part of preventive healthcare for asymptomatic individuals at average risk for colorectal cancer. Following a negative Cologuard result, the [place] [employer] Society and U.S. Multi-Society Task Force screening guidelines recommend a Cologuard re-screening interval of 3 years. References: [place] [employer] Guideline for Colorectal Cancer Screening: https://www.cancer.org/cancer/xlisz-irtewc-wtudas/nieuwywas-gnnjjlsdv-cghpdoh/ac s-rec ommendations.html.; Andriy LUCIANO, Segundo HENAO, Veronica ValienteK, Colorectal Cancer Screening: Recommendations for Physicians and Patients from the U.S. Multi-Society Task Force on Colorectal Cancer Screening , Am J Gastroenterology 2017; 112:5705-8531. TEST DESCRIPTION: Composite algorithmic analysis of stool [...] (Eusebia Carrion al, N Engl J Med 2014;370(14):4147-7674.) Cologuard may produce a false negative or false positive result (no colorectal cancer or precancerous polyp present at colonoscopy follow up). A negative Cologuard test result does not guarantee the absence of CRC or advanced adenoma (pre-cancer). The current Cologuard screening interval is every 3 years. ([place] [employer] Society and U.S. Multi-Society Task Force). Cologuard performance data in a 10,000 patient pivotal study using colonoscopy as the reference method can be accessed at the following location: www.[employer].[facility]/results. Additional description of the Cologuard test process, warnings and precautions can be found at www.cologuard.com. STOOL STOOL SPECIMEN / Unknown 01/08/2023 11:30 AM CDT 01/09/2023 9:49 PM CDT Gerda Minor [employer] Final Result [facility] ([facility]) [address] [place] [address], [employer] ([facility]) (CLIA #:[id number]) [address] [place] [address] from Last 3 Months or Most Recently Relevant to [place] [address] [facility] Advance Directives * Full Code (Latest Code Status on File) Date Activated Date Inactivated Comments 05/10/2020 6:13 PM 05/11/2020 3:54 PM Care Teams Cyanide Furnace Operator Relationship Specialty [place] [address] [place] [id number] PCP - General 12/12/16
--- OUTSIDE RECORDS SUMMARY | 2024-09-22 18:33 | XMS_ITS | Encounter Summary ---
Author Organization [facility] Address [address] [place] [address] Care Team Providers Care Assembler Cards And Announcements Name Role Phone Ulisses Minor MD Primary Care Provide r Ulisses Minor MD Primary Care Provide r Ulisses Minor MD Primary Care Provide r Ulisses Minor MD Primary Care Provide r Encounter Details Date Type Department Care Team (Late st Contact Info) Description 06/17/2012 Abstract [facility] Conversion , Generic Conversion, Social History Tobacco [...] - Seasonal 07/13/2023 07/13/2023 024 12:32 AM METAL FURNITURE GLAZIER documented as of this encounter Care Teams Assembler Cards And Announcements Relationship Specialty [place] [address] [place] [address] PCP - General 12/12/16 [place] [address] [place] [address] PCP - General 12/07/16 12/11/16 [place] [address] [place] [address] PCP - General 08/22/16 12/06/16 [place] [address] [place] [address] PCP - General 07/17/16 08/21/16 documented as of this encounter
--- OUTSIDE RECORDS SUMMARY | 2024-09-22 18:33 | XMS_ITS | Clinical Summary ---
Author Organization [facility] Address [address], [facility] [address] [place] [address] Phone Care Team Providers Care Sales Performance Manager Name Role Phone Ulisses Minor MD Primary Care Provider + Micky Andino DO Unavailable [phone] Provider, Unknown Unavailable Unavailable Allergies Active [...] age to complete [place] [address] [facility] [place] [address] Care Teams Sales Performance Manager Relationship Specialty Start Date End Date Ulisses Minor MD PCP - General Internal Medicine 12/28/17 Micky Andino DO Consulting Physician Oncology 12/28/17 Provider, Unknown UNKNOWN 01/15/18
--- OUTSIDE RECORDS SUMMARY | 2024-09-22 18:33 | XMS_ITS | Encounter Summary ---
Author Organization [facility] Address [address] [place] [address] Care Team Providers Care Awning Craftsman Name Role Phone Ulisses Minro MD Primary Care Provide r Ulisses Minor MD Primary Care Provide r Ulisses Minor MD Primary Care Provide r Ulisses Minor MD Primary Care Provide r Encounter Details Date Type Department Care Team (Late st Contact Info) Description 04/02/2012 Abstract [facility] Conversion , Generic Conversion, [...] - Seasonal 07/13/2023 07/13/2023 024 12:32 AM GROCERY CHECKER documented as of this encounter Care Teams Awning Craftsman Relationship Specialty Start [place] [address] [place] [address] PCP - General 12/12/16 [place] [address] [place] [address] PCP - General 12/07/16 12/11/16 [place] [address] [place] [address] PCP - General 08/22/16 12/06/16 [place] [address] [place] [address] PCP - General 07/17/16 08/21/16 documented as of this encounter
--- OUTSIDE RECORDS SUMMARY | 2024-09-22 18:33 | XMS_ITS | Clinical Summary ---
Author Organization [facility] [employer] Address [address] [place] [address] Care Team Providers Care Cd Mixer Helper Name Role Phone Ulisses Minor MD Primary Care Provide r Source Comments [facility] [employer],non-owned Affiliates and Associated Physician Practices is amultiple site organization consisting of ambulatory clinics and hospital sitesin [place], [place], [place] and [place]. This disclosure is being madepursuant to the Care Everywhere program and may not contain all information available regarding this patient. 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
--- OUTSIDE RECORDS SUMMARY | 2024-09-22 18:33 | XMS_ITS | Encounter Summary ---
Author Organization [facility] Address [address] [place] [address] Care Team Providers Care Spring Internship Name Role Phone Ulisses Minor MD Primary Care Provide r Ulisses Minor MD Primary Care Provide r Ulisses Minor MD Primary Care Provide r Ulisses Minor MD Primary Care Provide r Encounter Details Date Type Department Care Team (Late st Contact Info) Description 12/29/2011 Abstract [facility] Clinics Conversion , Generic Conversion, [...] - Seasonal 07/13/2023 07/13/2023 024 12:32 AM NURSING UNIT COORDINATOR documented as of this encounter Care Teams Spring Internship Relationship Specialty [place] [address] [place] [address] PCP - General 12/12/16 [place] [address] [place] [address] PCP - General 12/07/16 12/11/16 [place] [address] [place] [address] PCP - General 08/22/16 12/06/16 [place] [address] [place] [address] PCP - General 07/17/16 08/21/16 documented as of this encounter
--- OUTSIDE RECORDS SUMMARY | 2024-09-22 18:33 | XMS_ITS | Encounter Summary ---
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 Answer Date of Assessment Author Status No 05/10/2020 5:51 PM FEEDMOBILE DRIVER Activ e * Do you have serious difficulty walking or climbing stairs? Answer Date of Assessment Author Status No 05/10/2020 5:51 PM FEEDMOBILE DRIVER MensingSavita RN Active * Do you have [...] documented as of this encounter Care Teams Industrial Technology Education Teacher Relationship Specialty [place] [address] [facility] [address] [place] [address] PCP - General 12/12/16 documented as of this encounter
--- OUTSIDE RECORDS SUMMARY | 2024-09-22 18:33 | XMS_ITS | Clinical Summary ---
Author Organization [facility] Address [address] [place] [address] Care Team Providers Care High Rigger Name Role Phone Lukas Minor NP Primary Care Provider [phone] Allergies Active Allergy Reactions Criticality Noted Date Comments Clarithromycin Diarrhea,Nausea And Vomiting Low 12/20/2015 Codeine Itching Low 02/08/2011 Other reaction(s): GI Discomfort Gatifloxacin Diarrhea,Nausea And Vomiting Low 12/20/2015 Metformin Nausea only Low 03/08/2018 Medications atorvastatin (LIPITOR) 40 mg tabletIndicat ions:hyperlip idemia Take 1 tablet (40 mg total) by mouth data visualization developer before breakfast Active escitalopram (LEXAPRO) 20 mg [...] 1 tablet (88 mcg total) by mouth data visualization developer before breakfast 3 018 Active multivitamin tabletIndicat [...] 1 tablet (10 mg total) by mouth data visualization developer before breakfast Active Hyrimoz,CF, Pen 40 mg/0.4 [...] one sample pen exp 10/20, lot # [id number] [facility] [id number] Use as directed 1 each Active adalimumab-ad [...] 1 tablet (25 mg total) by mouth data visualization developer before breakfast 2024 Discontinued(T herapy completed) methotrexate [...] one sample pen exp 10/20, lot # [id number] [facility] [id number] Use as directed 1 each 025 2024 Discontinued adalimumab (HUMIRA, CF, SYRINGE) 40 mg/0.4 mL syringe kitIndication s:gave one sample pen exp 10/20, lot # [id number] [facility] [id number] Use as directed 1 each 025 2024 Discontinued adalimumab (HUMIRA, CF, SYRINGE) 40 mg/0.4 mL syringe kitIndication s:gave one sample pen exp 10/20, lot # [id number] [facility] [id number] Use as directed 1 each 025 2024 Discontinued Active Problems Problem Noted Date Diagnosed Date Other intervertebral disc degeneration, lumbar r egion 06/21/2023 Hemangioma of liver 01/17/2018 Overview (01/17/2018): Added automatically from request for surgery [id number] Cervical radiculopathy 09/27/2016 Allergic rhinitis due to [...] - 09/08/2024 11:59 PM CDT Hospital Encounter [facility] [address] [place] [address] 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 Rheumatology [address] [place] [address] Medical [address] [place] [phone] Meme Hassan NP 09/05/[address] [facility] Neurosurgery [address] [facility] Medical Office Building [address] [place] [address] Steve Rosado NP from Last 3 Months [...] on file Legal Sex Female 3:08 AM CHARGING MANIPULATOR Gender Identity Not on file Sexual Orientation [...] history exists Medical Devices Implanted Type Area Machine Woodworking Sander Device Identifier Shelf Expiration Date Model / Serial / Lot Spine[employer] Inc Screw Spinal 6.5x40mm [place] Pedicular Fix Sys Strl 964-3529 - [id number] Implanted:Qty: 4 on 10/31/2023 by Lamine Noriega MD PhD at [facility] N/A: Spine Lumbar Spineology Inc [id number] / / Spine[employer] Inc Graft Bone Tube 3/4 Filled Divrtd G2 066136 - [id number] - [id number] Implanted:Qty: 1 on 10/31/2023 by Lamine Noriega MD PhD at [facility] N/A: Spine Lumbar Spine[employer] Inc 04/30/2025 [id number] / [id number] 137 / Spineology Inc Set Spinal [place] Pedicular Fix Sys Strl Screw Pkg 670-2861 - [id number] Implanted:Qty: 4 on 10/31/2023 by Lamine Noriega MD PhD at [facility] N/A: Spine Lumbar Spine[employer] Inc 670-0007 / / Cerapedics Inc Allograft Bone Putty 2.5cc 700-632 - [id number] Implanted:Qty: 1 on 10/31/2023 by Lamine Noriega MD PhD at [facility] N/A: Spine Lumbar Cer[employer] Inc 10/25/2025 700-025 / / Spineology Inc Rubén Spinal 45mm Crv [place] Pedicular Fix Sys Strl 670-6464 - [id number] Implanted:Qty: 2 on 10/31/2023 by Lamine Noriega MD PhD at [facility] N/A: Spine Lumbar Spine[employer] Inc 670-4045 / / Spine[employer] Inc Graft Bone Tube 3/4 Filled Divrtd G2 434535 - [id number] - [id number] Implanted:Qty: 1 on 10/31/2023 by Lamine Noriega MD PhD at [facility] N/A: Spine Lumbar Spine[employer] Inc 04/30/2025 [id number] / [id number] 137 / Medtronic Inc Infuse Kit Xs Graft Bone Rhbmp-2 Bovine Collagen Lumbar Taper [id number] - [id number] Implanted:Qty: 1 on 10/31/2023 by Lamine Noriega MD PhD at [facility] N/A: Spine Lumbar Medtronic Inc 11/24/2024 [id number] / / Spineology Inc Cage Fusion Dual Chamb Large Interbody Exp System Optimesh 400-2620 - [id number] Implanted:Qty: 1 on 10/31/2023 by Lmaine Noriega MD PhD at [facility] N/A: Spine Lumbar Spineology Inc 05/28/2028 [id number] / / [id number] Spine[employer] Inc Graft Bone Tube 3/4 Filled Divrtd G2 889524 - [id number] - [id number] Implanted:Qty: 1 on 10/31/2023 by Lamine Noriega MD PhD at [facility] N/A: Spine Lumbar Spine[employer] Inc 04/30/2025 [id number] / [id number] 137 / Spine[employer] Inc Graft Bone Tube 3/4 Filled Divrtd G2 965542 - [id number] - [id number] Implanted:Qty: 1 on 10/31/2023 by Lamine Noriega MD PhD at [facility] N/A: Spine Lumbar Spine[employer] Inc 04/30/2025 [id number] / [id number] 137 / Procedures Procedure Name Priority Date/Time [...] signed by: Rhianna Watt MD Meme Hassan GEAR GENERATOR SET UP OPERATOR IMG XR PROCEDURES Final Result * (ABNORMAL) [...] PhD LAB BLOOD ORDERABLES Marilynn daksha Result [facility] Department [place] [address] * Lipid panel (03/08/2018 1:30 PM CDT) Cholesterol 176 30 - 199 mg/dL [facility] Comment: Interpretive Data Ages < or [...] revised on 2018. Triglycerides 125 <=149 mg/dL [facility] Comment: Interpretive Data Ages < or [...] revised on 2018. HDL 55 >=40 mg/dL [facility] Comment: Interpretive Data Ages < or [...] 2018. LDL, calculated 96 <=129 mg/dL [facility] Comment: Interpretive Data Ages < or [...] on 2018. Non-HDL Cholesterol 121 mg/dL [facility] Comment: Interpretive Data Ages < or [...] last revised on 2018. Chol/HDL ratio 3 [facility] Blood specimen (specimen) 03/08/2018 1:30 PM CDT 03/08/2018 3:30 PM CDT Narrative [facility] - 03/09/2018 1:00 AM CDT Aurelio Massey MD LAB BLOOD ORDERABLES Final Result [facility] [place] [address] * (ABNORMAL) Hemoglobin A1c (02/19/2018 3:42 PM CDT) Hgb A1C 10.1(H) 4.0 - 5.6 % [facility] Comment:Testing performed by : [facility], [facility] [place] [facility], [place]., [address] Estimated Average Glucose 243 mg/dL [facility] Comment: The ADA recommends reporting an estimated Average Glucose (eAG) with all Hemoglobin A1c results using the equation derived from a study of 507 normal and diabetic adults. Minority populations were underrepresented and children were not included. (Diabetes Care 31:8745-6636, 2008). The eAG is not equivalent to a fasting glucose. Testing performed by: [facility], [address] [place] [address]., [id number] Blood specimen (specimen) 02/19/2018 3:42 PM CDT 02/19/2018 8:10 PM CDT Narrative [facility] - 02/19/2018 8:26 PM CDT us Meaghan Smith NP LAB BLOOD ORDERABL ES Final Result [facility] [address] [facility]. Department [place] [address] from Last 3 Months or Most Recently Relevant to Health Maintenance Additional Health Concerns Infection Onset Date Last Indicated MDR gram neg/ESBL 10/15/2023 10/15/2023 Insurance [facility] ACCESS CHOICE ANTHEM ACCESS CHOICE Advance Directives For more information, please contact: [phone] * Full Code (Latest Code Status on File) Date Activated Date Inactivated Comments 10/31/2023 8:47 PM 11/01/2023 5:43 PM * Full Code Date Activated Date Inactivated Comments 03/08/2018 3:53 PM 03/10/2018 3:46 PM Care Teams High Rigger Relationship Specialty [place] [address] [facility] [address] [place] [address] PCP - General Family Medicine 07/24/24
--- OUTSIDE RECORDS SUMMARY | 2024-09-22 18:33 | XMS_ITS | Encounter Summary ---
Author Organization [facility] Address [address] [place] [address] Care Team Providers Care Napkin Machine Operator Name Role Phone Ulisses Minor MD Primary Care Provide r Encounter Details Date Type Department Care Team (Late st Contact Info) Description 05/11/2017 Abstract [facility] CONVERSION [address] [place] [address] , Generic ConversionMD Social History Tobacco Use [...] - Seasonal 07/13/2023 07/13/2023 024 12:32 AM STONER OUT documented as of this encounter Care Teams Napkin Machine Operator Relationship Specialty [place] [address] [place] [address] PCP - General 12/12/16 documented as of this encounter
--- OUTSIDE RECORDS SUMMARY | 2024-09-22 18:33 | XMS_ITS | Encounter Summary ---
Author Organization [facility] Address [address] [place] [address] Care Team Providers Care Wood Boatbuilder Apprentice Name Role Phone Ulisses Minor MD Primary Care Provide r Encounter Details Date Type Department Care Team (Late st Contact Info) Description 03/31/2017 Abstract [place] [address] , Generic ConversionMD Social History Tobacco Use [...] - Seasonal 07/13/2023 07/13/2023 024 12:32 AM CORE DRILL OPERATOR documented as of this encounter Care Teams Wood Boatbuilder Apprentice Relationship Specialty [place] [address] [place] [address] PCP - General 12/12/16 documented as of this encounter
--- OUTSIDE RECORDS SUMMARY | 2024-09-22 18:33 | XMS_ITS | Encounter Summary ---
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 Answer Date of Assessment Author Status No 05/10/2020 5:51 PM STRAND AND BINDER CONTROLLER Activ e * Do you have serious [...] documented as of this encounter Care Teams Recreation Attendant Relationship Specialty [place] [address] [place] [address] PCP - General 12/12/16 documented as of this encounter
--- OUTSIDE RECORDS SUMMARY | 2024-09-22 18:33 | XMS_ITS | Encounter Summary ---
Author Organization [facility] Address [address] [place] [address] Care Team Providers Care Tennis Ball Cover Cementer Name Role Phone Ulisses Minor MD Primary Care Provide r Ulisses Minor MD Primary Care Provide r Ulisses Minor MD Primary Care Provide r Ulisses Minor MD Primary Care Provide r Encounter Details Date Type Department Care Team (Late st Contact Info) Description 07/17/2011 Abstract [facility] Clinics Conversion , Generic Conversion, [...] - Seasonal 07/13/2023 07/13/2023 024 12:32 AM COLORING MACHINE OPERATOR documented as of this encounter Care Teams Tennis Ball Cover Cementer Relationship Specialty [place] [address] [place] [address] PCP - General 12/12/16 [place] [address] [place] [address] PCP - General 12/07/16 12/11/16 [place] [address] [place] [address] PCP - General 08/22/16 12/06/16 [place] [address] [place] [address] PCP - General 07/17/16 08/21/16 documented as of this encounter
--- OUTSIDE RECORDS SUMMARY | 2024-09-22 18:33 | XMS_ITS | Encounter Summary ---
Author Organization [facility] Address [address] [place] [address] Care Team Providers Care Manager Estate Name Role Phone Ulisses Minor MD Primary Care Provide r Ulisses Minor MD Primary Care Provide r Ulisses Minor MD Primary Care Provide r Ulisses Minor MD Primary Care Provide r Encounter Details Date Type Department Care Team (Late st Contact Info) Description 04/17/2016 Abstract [facility] Conversion , Generic Conversion, Social History [...] - Seasonal 07/13/2023 07/13/2023 024 12:32 AM BARREL CHARRER documented as of this encounter Care Teams Manager Estate Relationship Specialty [place] [address] [place] [address] PCP - General 12/12/16 [place] [address] [place] [address] PCP - General 12/07/16 12/11/16 [place] [address] [place] [address] PCP - General 08/22/16 12/06/16 [place] [address] [place] [address] PCP - General 07/17/16 08/21/16 documented as of this encounter
--- OUTSIDE RECORDS SUMMARY | 2024-09-22 18:33 | XMS_ITS | Referral Summary ---
Author Organization [facility] Address [address] [place] [address] Care Team Providers Care Activity Assistant Name Role Phone Lukas Minor NP Primary Care Provider [phone]- [phone] Encounters Date Type Department Care Team Description 09/08/2024 8:52 AM CDT - 09/08/2024 11:59 PM CDT Hospital Encounter [facility] Imaging [address] [place] [address] Rheumatoid arthritis with rheumatoid factor of right hand without organ or systems involvement (HCC) Discharge Disposition: Discharge to home or self care 09/08/2024 Telephone [facility] Rheumatology [address] [place] [address] Medical Office Building [address] [place] [address] Meme Hassan NP 09/08/2024 8:00 AM CDT Office Visit [facility] Rheumatology [address] [place] [address] Medical Office Building [address] [place] [address] Meme Hassan NP Rheumatoid arthritis with rheumatoid factor of right hand without organ or systems involvement (HCC) (Primary Dx); High risk medication use; Primary osteoarthritis involving multiple joints 09/05/2024 Telephone [facility] Neurosurgery [address] [facility] Medical Office Building [address] [place] [address] Steve Myers NP from Last 3 Months Allergies Active Allergy Reactions Criticality Noted Date Comments Clarithromycin Diarrhea,Nausea And Vomiting Low 12/20/2015 Codeine Itching Low 02/08/2011 Other reaction(s): GI Discomfort Gatifloxacin Diarrhea,Nausea And Vomiting Low 12/20/2015 Metformin Nausea only Low 03/08/2018 Medications atorvastatin (LIPITOR) 40 mg tabletIndicat ions:hyperlip idemia Take 1 tablet (40 mg total) by mouth calculus tutor before breakfast Active escitalopram (LEXAPRO) 20 mg tabletIndicat ions:Generali zed Anxiety Disorder,slee p Take 1 tablet (20 mg total) by mouth every morning Active TOUVONNIE SOLOSTAR U-300 INSULIN 300 unit/mL (1.5 mL) insulin penIndication s:type 2 diabetes mellitus Inject 80 Units under the skin nightly 11 Active levothyroxine (SYNTHROID, LEVOTHROID) 88 mcg tabletIndicat ions:hypothyr oidism Take 1 tablet (88 mcg total) by mouth calculus tutor before breakfast 3 Active multivitamin tabletIndicat ions:Vitamin [...] 1 tablet (10 mg total) by mouth calculus tutor before breakfast Active Hyrimoz,CF, Pen 40 mg/0.4 [...] one sample pen exp 10/20, lot # [id number] [facility] [id number] Use as directed 1 each Active adalimumab-ad [...] 1 tablet (25 mg total) by mouth calculus tutor before breakfast 2024 Discontinued(T herapy completed) methotrexate [...] one sample pen exp 10/20, lot # [id number] [facility] [id number] Use as directed 1 each 025 2024 Discontinued adalimumab (HUMIRA, CF, SYRINGE) 40 mg/0.4 mL syringe kitIndication s:gave one sample pen exp 10/20, lot # [id number] [facility] [id number] Use as directed 1 each 025 2024 Discontinued adalimumab (HUMIRA, CF, SYRINGE) 40 mg/0.4 mL syringe kitIndication s:gave one sample pen exp 10/20, lot # [id number] [facility] [id number] Use as directed 1 each 025 2024 Discontinued Active Problems Problem Noted Date Diagnosed Date Other intervertebral disc degeneration, lumbar r egion 06/21/2023 Hemangioma of liver 01/17/2018 Overview (01/17/2018): Added automatically from request for surgery [id number] Cervical radiculopathy 09/27/2016 Allergic rhinitis due to [...] on file Legal Sex Female 3:08 AM 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 N/A: Spine Lumbar [employer] Inc 670-1192 / / [employer]ine[employer] Inc Graft Bone Tube 3/4 Filled Divrtd G2 853103 - [id number] - [id number] Implanted:Qty: 1 on 10/31/2023 by Lamine Noriega MD PhD at [facility] N/A: Spine Lumbar [employer] Inc 04/30/2025 [id number] / [id number] / Spine[employer] Inc Set Spinal Wrightwood Pedicular Fix Sys Strl Screw Pkg 670-0005 - [id number] Implanted:Qty: 4 on 10/31/2023 by Lamine Noriega MD PhD at [facility] N/A: Spine Lumbar [employer] Inc 670-0007 / / Ceraped[employer] Inc Allograft Bone Putty 2.5cc 700-025 - [id number] Implanted:Qty: 1 on 10/31/2023 by Lamine Noriega MD PhD at [facility] N/A: Spine Lumbar [employer] Inc 10/25/2025 700-025 / / Spine[employer] Inc Rubén Spinal 45mm Crv [place] Pedicular Fix Sys Strl 670-4027 - [id number] Implanted:Qty: 2 on 10/31/2023 by Lamine Noriega MD PhD at [facility] N/A: Spine Lumbar [employer]ine[employer] Inc [id number] / / [employer] Inc Graft Bone Tube 3/4 Filled Divrtd G2 444015 - [id number] - [id number] Implanted:Qty: 1 on 10/31/2023 by Lamine Noriega MD PhD at [facility] N/A: Spine Lumbar [employer]ine[employer] Inc 04/30/2025 [id number] / [id number] 137 / Medtronic Inc Infuse Kit Xs Graft Bone Rhbmp-2 Bovine Collagen Lumbar Taper [id number] - [id number] Implanted:Qty: 1 on 10/31/2023 by Lamine Noriega MD PhD at [facility] N/A: Spine Lumbar Medtronic Inc 11/24/2024 [id number] / / Spine[employer] Inc Cage Fusion Dual Chamb Large Interbody Exp System Optimesh 400-2620 - [id number] Implanted:Qty: 1 on 10/31/2023 by Lamine Noriega MD PhD at [facility] N/A: Spine Lumbar Spine[employer] Inc 05/28/2028 [id number] / / [id number] Spine[employer] Inc Graft Bone Tube 3/4 Filled Divrtd G2 440998 - [id number] - [id number] Implanted:Qty: 1 on 10/31/2023 by Lamine Noriega MD PhD at [facility] N/A: Spine Lumbar Spine[employer] Inc 04/30/2025 [id number] / [id number] 137 / Spine[employer] Inc Graft Bone Tube 3/4 Filled Divrtd G2 689650 - [id number] - [id number] Implanted:Qty: 1 on 10/31/2023 by Lamine Noriega MD PhD at [facility] N/A: Spine Lumbar Spine[employer] Inc 04/30/2025 [id number] / [id number] / Procedures Procedure Name Priority Date/Time [...] by: Rhianna Watt MD us Meme Hassan JUDO TEACHER IMG XR PROCEDURES Final Result * (ABNORMAL) [...] PhD LAB BLOOD ORDERABLES Marilynn crooks Result [facility] Department [place] [address] * Lipid panel (03/08/2018 1:30 PM CDT) Cholesterol 176 30 - 199 mg/dL [facility] Comment: Interpretive Data Ages < or [...] revised on 2018. Triglycerides 125 <=149 mg/dL [facility] Comment: Interpretive Data Ages < or = [...] revised on 2018. HDL 55 >=40 mg/dL [facility] Comment: Interpretive Data Ages < or = [...] on 2018. LDL, calculated 96 <=129 mg/dL [facility] Comment: Interpretive Data Ages < or = [...] on 2018. Non-HDL Cholesterol 121 mg/dL [facility] Comment: Interpretive Data Ages < or [...] last revised on 2018. Chol/HDL [facility] Blood specimen (specimen) 03/08/2018 1:30 PM CDT 03/08/2018 3:30 PM CDT Narrative [facility] - 03/09/2018 1:00 AM CDT Aurelio Massey MD LAB BLOOD ORDERABLES Final Result [facility] [place] [address] * (ABNORMAL) Hemoglobin A1c (02/19/2018 3:42 PM CDT) Hgb A1C 10.1(H) 4.0 - 5.6 % [facility] Comment:Testing performed by : [facility], [address] [place] [address], [place]., [address] Estimated Average Glucose 243 mg/dL [facility] Comment: The ADA recommends reporting an estimated Average Glucose (eAG) with all Hemoglobin A1c results using the equation derived from a study of 507 normal and diabetic adults. Minority populations were underrepresented and children were not included. (Diabetes Care 31:4683-9931, 2008). The eAG is not equivalent to a fasting glucose. Testing performed by: [facility], [address] [place] [address]., [id number] Blood specimen (specimen) 02/19/2018 3:42 PM CDT 02/19/2018 8:10 PM CDT Narrative [facility] - 02/19/2018 8:26 PM CDT us Meaghanfidelia Sltaer Grupo Smith NP LAB BLOOD ORDERABL ES Final Result Performing Organization Address City/State/ZIP Co in Phone Number [facility] [address] [facility] [place] [address] from Last 3 Months or Most Recently Relevant to Health Maintenance Additional Health Concerns Infection Onset Date Last Indicated MDR gram neg/ESBL 10/15/2023 10/15/2023 Insurance [facility] [employer] CHOICE Advance Directives For more information, please contact: [phone] * Full Code (Latest Code Status on File) Date Activated Date Inactivated Comments 10/31/2023 8:47 PM 11/01/2023 5:43 PM * Full Code Date Activated Date Inactivated Comments 03/08/2018 3:53 PM 03/10/2018 3:46 PM Care Teams Activity Assistant Relationship Specialty [place] [address] [place] [address] PCP - General Family Medicine 07/24/24
== END 2024-09-22 17:51 | disposition home or self-care (01) ==
LOC: ANHED 17:27
PROVIDERS: Emergency Provider Emergency Medicine; PCP Pediatrics
DX: S09.90XA Unspecified injury of head, initial encounter (principal); S39.92XA Unspecified injury of lower back, initial encounter; E11.9 Type 2 diabetes mellitus without complications; I10 Essential (primary) hypertension; Z79.899 Other long term (current) drug therapy; Z79.85 Long-term (current) use of injectable non-insulin antidiabetic drugs; Z79.4 Long term (current) use of insulin; M51.369 Other intervertebral disc degeneration, lumbar region without mention of lumbar back pain or lower extremity pain; M48.061 Spinal stenosis, lumbar region without neurogenic claudication; Y04.2XXA Assault by strike against or bumped into by another person, initial encounter
CPT/HCPCS: 70450; 72131; 99284; A9270

== ENCOUNTER 2024-12-18 12:51 | Outpatient (CLI) | payer BC, SELFPAY ==
--- NOTE | 2024-12-18 13:00 | ECG_ITS ---
Test Date: 2024-12-18 13:33:48 Measurements Intervals Petal Rate: 83 P: 45 NJ: 156 QRS: 10 QRSD: 99 T: 54 QT: 394 QTc: 465 Interpretive Statements SINUS RHYTHM LOW QRS VOLTAGE IN PRECORDIAL LEADS [QRS DEFLECTION < 1.0 mV IN CHEST LEADS] No previous ECG available for comparison Electronically Signed On 12-19-2024 15:59:21 CDT by Almas Elias M.D.
--- OUTSIDE RECORDS SUMMARY | 2024-12-18 13:00 | XMS_ITS | Encounter Summary ---
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 Answer Date of Assessment Author Status No 05/10/2020 5:51 PM SOFTWARE TEST MANAGER Activ e * Do you have serious difficulty walking or climbing stairs? Answer Date of Assessment Author Status No 05/10/2020 5:51 PM SOFTWARE TEST MANAGER Savita Alvarado NP Active * Do you have difficulty dressing or bathing? Answer Date of Assessment Author Status No 05/10/2020 5:51 PM SOFTWARE TEST MANAGER Savita Alvarado NP Active * Because of a physical, mental, or emotional condition, do you have difficulty doing errands alone such as visiting a doctor's office or shopping? Answer Date of Assessment Author Status No 05/10/2020 5:51 PM SOFTWARE TEST MANAGER Savita Alvarado NP Active documented as of this encounter Mental Status * Because of a physical, mental, or emotional condition, do you have serious difficulty concentrating, remembering, or making decisions? Answer Entry Date Author Status No 05/10/2020 5:51 PM SOFTWARE TEST MANAGER Savita Alvarado NP Active documented in this encounter Plan of Treatment Upcoming Encounters Date Type Department Care Team (Late st Contact Info) Description 12/24/2024 1:00 PM CDT Office Visit [address] [place] [id number] Lukas Minor FNP [address] [place] [address] documented as of this encounter Visit Diagnoses Not on filedocumented in this encounter Additional Health Concerns Infection Onset Date Last Indicated Resolved Time Influenza - Seasonal 07/13/2023 07/13/2023 024 12:32 AM SOFTWARE TEST MANAGER MRSA 10/14/2024 10/14/2024 Assessment Noted Time PHQ-9 Depression Total Score: 0 08/13/19 22 10:52 AM CDT documented as of this encounter Care Teams Landscaping Specialist Relationship Specialty [place] [address] [place] [address] PCP - General 12/12/16 documented as of this encounter
--- OUTSIDE RECORDS SUMMARY | 2024-12-18 13:00 | XMS_ITS | Clinical Summary ---
Author Organization [facility] [employer] Address [address] [place] [address] Care Team Providers Care Firer Diesel Locomotive Name Role Phone Ulisses Minor MD Primary Care Provide r Source Comments [facility] [employer],non-owned Affiliates and Associated Physician Practices is amultiple site organization consisting of ambulatory clinics and hospital sitesin [place], [place], [place] and [place]. This disclosure is being madepursuant to the Care Everywhere program and may not contain all information available regarding this patient. 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 [place] [address] Advance Directives * FULL RESUSCITATION (Latest Code Status on File) Date Activated Date Inactivated Comments 05/10/2011 1:30 PM 05/12/2011 4:27 AM Care Teams Firer Diesel Locomotive Relationship Specialty Start Date End Date Ulisses Minor MD [address] [place] [address] PCP - General Pediatrics 01/01/12
--- OUTSIDE RECORDS SUMMARY | 2024-12-18 13:00 | XMS_ITS | Encounter Summary ---
Author Organization [facility] Address [address] [place] [address] Care Team Providers Care Corn Crop Supervisor Name Role Phone Ulisses Minor MD Primary Care Provide r Ulisses Minor MD Primary Care Provide r Ulisses Minor MD Primary Care Provide r Ulisses Minor MD Primary Care Provide r Encounter Details Date Type Department Care Team (Late st Contact Info) Description 07/17/[address] [facility] Clin[facility] Conversion , Generic Conversion, Social History Tobacco Use Types Packs/Day Years Used Date Smoking Tobacco: Never Assessed Comments Unknown Sex and Gender Information Value Date Recorded Sex Assigned at Female 08/11/2024 9:45 AM CDT Legal Sex Female 8:33 PM CDT Gender Identity Not on file Sexual Orientation Not on file documented as of this encounter Plan of Treatment Upcoming Encounters Date Type Department Care Team (Late st Contact Info) Description 12/24/2024 1:00 PM CDT Office Visit [facility] [address] [place] [address] Lukas Minor, [place] [facility] [address] [facility] [address] [place] [address] documented as of this encounter Visit Diagnoses Not on filedocumented in this encounter Additional Health Concerns Infection Onset Date Last Indicated Resolved Time Influenza - Seasonal 07/13/2023 07/13/2023 024 12:32 AM OVEN OPERATOR MRSA 10/14/2024 10/14/2024 documented as of this encounter Care Teams Corn Crop Supervisor Relationship Specialty [place] [address] [place] [address] PCP - General 12/12/16 [place] [address] [place] [address] PCP - General 12/07/16 12/11/16 [place] [address] [place] [address] PCP - General 08/22/16 12/06/16 [place] [address] [place] [address] PCP - General 07/17/16 08/21/16 documented as of this encounter
--- OUTSIDE RECORDS SUMMARY | 2024-12-18 13:00 | XMS_ITS | Encounter Summary ---
Author Organization [facility] Address [address] [place] [address] Care Team Providers Care Cloth Desizing Range Operator Chief Name Role Phone Ulisses Minor MD Primary Care Provide r Encounter Details Date Type Department Care Team (Late st Contact Info) Description 09/19/[address] [facility] [address] [place] [address] Liliya James, NAIL ARTIST [address] [place] [address] Antibiotic Social History Tobacco Use [...] Assessment Author Status No 05/10/2020 5:51 PM SYSTEMS INTEGRATION ANALYST Activ e * RETIRED Are you blind or do you have serious difficulty seeing, even when wearing glasses? Answer Date of Assessment Author Status No 05/10/2020 5:51 PM SYSTEMS INTEGRATION ANALYST Activ e * Do you have serious difficulty walking or climbing stairs? Answer Date of Assessment Author Status No 05/10/2020 5:51 PM SYSTEMS INTEGRATION ANALYST Savita Alvarado NP Active * Do you have difficulty dressing or bathing? Answer Date of Assessment Author Status No 05/10/2020 5:51 PM Savita Martínez NP Active * Because of a physical, mental, or emotional condition, do you have difficulty doing errands alone such as visiting a doctor's office or shopping? Answer Date of Assessment Author Status No 05/10/2020 5:51 PM SYSTEMS INTEGRATION ANALYST Savita Alvarado NP Active * Over the past 2 weeks, [...] Status No 05/10/2020 5:51 PM Savita Martínez NP Active documented in this encounter Plan of Treatment Upcoming Encounters Date Type Department Care Team (Late st Contact Info) Description 12/24/2024 1:00 PM CDT Office Visit [facility] [address] [place] [address] Lukas Minor FNP [address] [place] [address] documented as of this encounter Visit Diagnoses Not on filedocumented in this encounter Additional Health Concerns Infection Onset Date Last Indicated Resolved Time MRSA 10/14/2024 10/14/2024 Assessment Noted Time PHQ-9 Depression Total Score: 0 08/13/19 22 10:52 AM CDT documented as of this encounter Care Teams Cloth Desizing Range Operator Chief Relationship Specialty [place] [address] [place] [address] PCP - General 12/12/16 documented as of this encounter
--- OUTSIDE RECORDS SUMMARY | 2024-12-18 13:00 | XMS_ITS | Clinical Summary ---
Author Organization [facility] Address [address], [facility] [address] [place] [address] Phone Care Team Providers Care Sign Board Erector Name Role Phone Ulisses Minor MD Primary Care Provider + Micky Andino DO Unavailable [phone] Provider, Unknown Unavailable Unavailable Allergies Active [...] 10:45 AM CDT Height 162.6 cm (5' 4) 01/07/2018 10:4 5 AM CDT Body Mass Index 44.56 01/07/2018 10:45 AM CDT Plan of Treatment Health Maintenance Due Date Last Done Comments Hepatitis C Virus (HCV) Screening 1966 Cologuard 2011 Colonoscopy 2011 Colorectal Cancer Screening 2011 Immunochemical Fecal Occult Blood 2011 Pneumococcal Immunization (50+ years) (1 of 1 - PCV) 2016 Zoster Immunization (1 of 2) 2016 SARS-COV-2 Immunization (1 - 2023- season) 2024 Influenza Immunization (#1) 2025 09/0 12/2019, 03/02/2019, 02/19/2018, Additional history exists Respiratory Syncytial Virus (RSV) Immunization (Adult) (1 - 1-dose 75+ series) 2041 Hepatitis B Immunization Completed 004, 06/16/2003, 05/12/2003 DTaP/Tdap/Td Immunization Discontinued 11/21/2018, TdaP Immunization Completed 11/21/2018, 05/17/2014 Human Papillomavirus (HPV) Immunization Aged Out No longer eligible based on patient's age to complete this topic Meningococcal Immunization (ACWY) Aged Out No longer eligible based on patient's age to complete this topic Rotavirus Immunization Aged Out No lo nger eligible based on patient's age to complete this topic [place] [address] [facility] [place] [address] Care Teams Sign Board Erector Relationship Specialty Start Date End Date Ulisses Minor MD PCP - General Internal Medicine 12/28/17 Micky Andino DO Consulting Physician Oncology 12/28/17 Provider, Unknown UNKNOWN 01/15/18
--- OUTSIDE RECORDS SUMMARY | 2024-12-18 13:00 | XMS_ITS | Encounter Summary ---
Author Organization [facility] Health Address [address] [facility] [place] [address] Care Team Providers Care Talent Scout Name Role Phone Ulisses Minor MD Primary Care Provide r Encounter Details Date Type Department Care Team (Late st Contact Info) Description 05/12/2011 [facility] [address] [place] [id number] Social History Tobacco Use Types Packs/Day Years Used Date Smoking Tobacco: Never Smokeless Tobacco: Never Alcohol Use Standard Drinks/Week Comments Yes 0 (1 standard drink = 0.6 oz pur e alcohol) social/rare Comments No Sex and Gender Information Value Date Recorded Sex Assigned at Not on file 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
--- OUTSIDE RECORDS SUMMARY | 2024-12-18 13:00 | XMS_ITS | Encounter Summary ---
Author Organization [facility] Address [address] [place] [address] Care Team Providers Care Needle Loom Tender Name Role Phone Ulisses Minor MD Primary Care Provide r Ulisses Minor MD Primary Care Provide r Ulisses Minor MD Primary Care Provide r Ulisses Minor MD Primary Care Provide r Encounter Details Date Type Department Care Team (Late st Contact Info) Description 04/02/2012 Abstract [facility] Clin[facility] Conversion , Generic [...] Description 12/24/2024 1:00 PM CDT Office Visit [facility] [address] [place] [phone] Lukas Minor, [facility] [address] [facility] [address] [place] [address] documented as of this encounter Visit Diagnoses Not on filedocumented in this encounter Additional Health Concerns Infection Onset Date Last Indicated Resolved Time Influenza - Seasonal 07/13/2023 07/13/2023 024 12:32 AM 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
--- OUTSIDE RECORDS SUMMARY | 2024-12-18 13:00 | XMS_ITS | Encounter Summary ---
Author Organization [facility] Health Address [address] [facility] [place] [place] [address] Care Team Providers Care Eating Disorder Specialist Name Role Phone Ulisses Minor MD Primary Care Provide r Encounter Details Date Type Department Care Team (Late st Contact Info) Description 06/02/2011 [facility] [address] [place] [id number] Social History Tobacco Use Types Packs/Day Years Used Date Smoking Tobacco: Never Smokeless Tobacco: Never Alcohol Use Standard Drinks/Week Comments Yes 0 (1 standard drink = 0.6 oz pur e alcohol) social/rare Comments No Sex and Gender Information Value Date Recorded Sex Assigned at Not on file 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
--- OUTSIDE RECORDS SUMMARY | 2024-12-18 13:00 | XMS_ITS | Encounter Summary ---
Author Organization [facility] Address [address] [place] [address] Care Team Providers Care Optical Worker Name Role Phone Ulisses Minor MD Primary Care Provide r Ulissse Minor MD Primary Care Provide r Ulisses Minor MD Primary Care Provide r Ulisses Minor MD Primary Care Provide r Encounter Details Date Type Department Care Team (Late st Contact Info) Description 06/01/2016 Abstract [facility] Clin[facility] Conversion , Generic Conversion, Social History [...] Description 12/24/2024 1:00 PM CDT Office Visit 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
--- OUTSIDE RECORDS SUMMARY | 2024-12-18 13:00 | XMS_ITS | Clinical Summary ---
Author Organization [facility] Address [address] [place] [address] Care Team Providers Care Layout Designer Name Role Phone Ulisses Minor MD Primary [...] Monitoring Suppl (ONE TOUCH ULTRA 2) w/Device KitIndications:Ty pe 2 diabetes mellitus with hyperglycemia, with long-term current use of insulin ([facility]) 1 each by Does not apply route daily. 1 kit 022 Active Insulin Pen Needle (PEN NEEDLES) 31G X 8 MM MiscIndications:T ype 2 diabetes mellitus with diabetic polyneuropathy, with long-term current use of insulin ([facility]) 1 each by Does not apply route 4 (four) times a day. 400 each 3 022 Active triamcinolone 0.1 % cream as needed. 022 Active albuterol sulfate HFA 108 (90 Base) MCG/ACT inhalerIndication s:Acute bronchitis, unspecified organism Inhale 2 puffs into the lungs every 4 (four) hours as needed for Wheezing. 18 g 2 023 Active cyclobenzaprine (FLEXERIL) 10 MG tabletIndications :Spinal stenosis of lumbar region with neurogenic claudication Take 1 tablet (10 mg total) by mouth 3 (three) times daily as needed. 90 tablet 3 023 Active fluticasone propionate (FLONASE) 50 MCG/ACT nasal sprayIndications: Nasal congestion 2 sprays by Nasal route daily. 16 g 11 024 Active HYRIMOZ 40 MG/0.4ML Solution Auto-injector every 14 (fourteen) days. 024 Active atorvastatin (LIPITOR) 40 MG tabletIndications :Mixed hyperlipidemia take 1 tablet by mouth every day 90 tablet 3 024 Active omeprazole (PRILOSEC) 20 MG capsuleIndication s:Gastroesophagea l reflux disease without esophagitis take 1 capsule by mouth every day 90 capsule 3 024 Active TOUJEO SOLOSTAR 300 UNIT/ML Solution Pen-injectorIndic ations:Type 2 diabetes mellitus with diabetic polyneuropathy, with long-term current use of insulin ([facility] HHS/HCC) INJECT 90 UNITS INTO THE SKIN NIGHTLY AT BEDTIME. 27 mL 3 024 Active lisinopril (PRINIVIL) 10 MG tabletIndications :Essential hypertension take 1 tablet by mouth every day 90 tablet 3 024 Active Insulin Aspart (NOVOLOG IJ) Inject 3 mLs as directed. Sliding scale Active amitriptyline (ELAVIL) 25 MG tabletIndications :Primary insomnia Take 1 tablet (25 mg total) by mouth nightly at bedtime. 90 tablet 3 024 Active hydroxychloroquin e (PLAQUENIL) 200 MG tabletIndications :Rheumatoid arthritis with rheumatoid factor of right hand without organ or systems involvement ([facility] HHS/HCC) TAKE 1 TABLET BY MOUTH TWICE A DAY 180 tablet 1 025 Active MOUNJARO 12.5 MG/0.5ML injection 12.5 MG (0.5 ML) SUBCUTANEOUSLY WEEKLY 025 Active HYDROcodone-aceta minophen (NORCO) 5-325 MG tabletIndications :Acute Pain < 7 Day Supply Take 1 tablet by mouth every 4 (four) hours as needed for Pain. Indications: Acute Pain < 7 Day Supply 40 tablet 025 Active Additional Information Patient not taking.Reported on 10/13/2024 naloxone (NARCAN) 4 MG/0.1ML nasal sprayIndications: Acute pain of right shoulder 1 spray by Nasal route as needed for Opioid reversal. may repeat every 2 to 3 minutes in alternating nostrils until medical assistance becomes available 1 each 025 2025 Active Additional Information Patient not taking.Reported on 10/13/2024 guaiFENesin-codei ne (GUAIFENESIN AC) 100-10 MG/5ML syrupIndications: Bronchitis Take 5 mLs by mouth every 4 (four) hours as needed for Cough. Indications: Bronchitis 240 mL 025 Active folic acid (FOLVITE) 1 MG tablet Take 1 tablet (1 mg total) by mouth daily. 025 Active ONETOUCH ULTRA test stripIndications: Type 2 diabetes mellitus with diabetic polyneuropathy, with long-term current use of insulin ([facility]) USE TO TEST THREE TIMES DAILY FOR DIABETES 300 strip 5 025 Active escitalopram (LEXAPRO) 20 MG tabletIndications :Anxiety state TAKE 1 TABLET BY MOUTH EVERY DAY 90 tablet 025 Active triamterene-hydro CHLOROthiazide (DYAZIDE) 37.5-25 MG capsuleIndication s:Essential hypertension TAKE 1 CAPSULE BY MOUTH EVERY DAY 90 capsule 025 Active levothyroxine (SYNTHROID) 88 MCG tabletIndications :Acquired hypothyroidism TAKE 1 TABLET BY MOUTH EVERY DAY IN THE MORNING 90 tablet 025 Active methotrexate (TREXALL) 2.5 MG tabletIndications :Rheumatoid arthritis involving both hands with positive rheumatoid factor ([facility] HHS/[facility]) TAKE 3 TABLETS (7.5 MG TOTAL) BY MOUTH ONCE A WEEK FOR 30 DAYS. 12 tablet 1 025 Active traMADol (ULTRAM) 50 MG tabletIndications :Spinal stenosis of lumbar region with neurogenic claudication TAKE 1 TABLET BY MOUTH EVERY 6 HOURS NEEDED FOR CHRONIC PAIN 60 tablet 1 025 Active traMADol (ULTRAM) 50 MG tabletIndications :Spinal stenosis of lumbar region with neurogenic claudication TAKE 1 TABLET BY MOUTH EVERY 6 HOURS NEEDED FOR CHRONIC PAIN 60 tablet 3 024 2024 Discontinued Active Problems Problem Noted Date Diagnosed Date Infection of great toe due t o methicillin resistant Staphylococcus aureus (MRSA) 10/17/2024 Callus of foot 10/13/2024 Blister of toe of left foot, initial encounter 0 10/13/2024 Rheumatoid arthritis involvi ng multiple sites with positive rheumatoid factor ([facility]) 12/24/2023 Spondylolisthesis of lumbar region 06/21/2023 Other intervertebral disc degeneration, lumbar r egion 06/21/2023 Other intervertebral disc displacement, lumbar r egion 06/21/2023 Foraminal stenosis of lumbar region 06/21/2023 Radiculopathy, lumbar region 06/21/2023 Spinal stenosis of lumbar re gion with neurogenic claudication 06/21/2023 Acute bilateral low back pain with left-sided sc iatica 03/03/2022 Psoriatic arthritis ([facility]) 06/20/2021 COVID-19 05/10/2020 S/P cervical spinal fusion 11/05/2018 Right arm pain 11/05/2018 Breast mass in female 01/02/2018 Hemangioma of liver 01/02/2018 Overview (08/13/2020): Overview: Added automatically from request for surgery [id number] Added automatically from request for surgery [id number] Liver mass 01/02/2018 Myofascial pain 04/25/2017 Cervical [...] hyperglycemia, with long-term current use of insulin ([facility]) 03/06/2011 Overview (05/30/2018): Type 2 diabetes mellitus without complications Morbid obesity 03/06/2011 Hiatal hernia 03/06/2011 DM (diabetes mellitus) ([facility]) 011 Resolved Problems Problem Noted Date Diagnosed Date Resolved Date HTN (hypertension) 03/06/2011 4 High blood cholesterol 03/06/201112/23 Encounters Date Type Department Care Team Description 10/31/2024 9:55 AM CDT - 10/31/2024 11:59 PM CDT Hospital Encounter [facility] [address] [place] [address] Dorian Quinonez MD Discharge Disposition: Home or Self Care (Routine Discharge) 10/31/2024 Travel 10/30/2024 Scan Mismi INFO SRVCS Scanned, [facility] 10/22/2024 1:42 PM CDT - 10/22/2024 11:59 PM CDT Hospital Encounter [facility] [address] [place] [address] Dorian Quinonez MD Discharge Disposition: Home or Self Care (Routine Discharge) 10/22/2024 Travel 10/17/2024 Results Follow-Up [facility] [address] [place] [address] Ruthann Villatoro MD CULTURE, TISSUE W/GRAM STAIN 10/14/2024 12:40 PM CDT - 10/14/2024 11:59 PM CDT Hospital Encounter [facility] [address] [place] [address] Ruthann Villatoro MD Discharge Disposition: Home or Self Care (Routine Discharge) 10/14/2024 Travel 10/13/2024 10:30 AM CDT Office Visit [facility] [address], [address] [place] [address] Pedro Moore MD Blisters (On toe- been there a while- it comes and goes- was infected so PCP started her on Keflex last Sunday) 10/13/2024 Travel 10/08/2024 Misc Documentation [facility] [address] [place] [address] Gerda Minor FNP 10/08/2024 Telephone [facility] [address], [address] [place] [address] Pedro Moore MD Appointment Request 10/01/2024 1:20 PM CDT Office Visit [facility] [address] [place] [address] Gerda Minor FNP Follow Up (Emergency Room. Concussion. Had hit head on 09/22/2024. Tried to go back to work on 09/29/24. States has dull headache throughout the day and is terrible at the end of work day. Last night had vomiting episode. ) 10/01/2024 Travel 09/22/2024 Scan [facility] INFO SRVCS Scanned, [facility] from Last 3 Months Immunizations Immunization Administration Dates Next Due FLUCELVAX (ccIIV3, TRIVALENT, 0.5mL) 03/17/2024 Fluzone 6 Months+ Quad (0.5 mL Prefilled Syringe) 03/03/2022,03/10/2021 Hepatitis B 12/01/2003,06/16/2003,05/12/2003 Influenza (Generic) 02/09/2011 Influenza Adult (Generic) 03/21/2023,,02/03/2020,2018,02/20/2018,02/19/2018,02/19/2017,0 02/18/2017,02/23/2016,02/22/2015, 014 MODERNA COVID-19 (12+) MRNA, LNP-S, PF, 100 MCG/ 0.5 ML DOSE 08/07/2020,07/10/2020 MODERNA COVID-19 (VOCATIONAL TRAINING INSTRUCTOR EMANI ABY), MRNA, LNP-S, PF, 50 MCG/ [...] Never Alcohol Use Standard Drinks/Week Comments Yes 1.7 (1 standard drink = 0.6 oz p ure alcohol) rarely PHQ-2 Answer Date Recorded Patient Health Questionnaire-2 Score 0 10/01/2024 Comments No Sex and Gender Information Value Date Recorded Sex Assigned at Female 08/11/2024 9:45 AM CDT Legal Sex Female 8:33 PM CDT Gender Identity Not on file Sexual Orientation Not on file Last Filed Vital Signs Vital Sign Reading Time Taken Comments Blood Pressure 166/86 10/13/2024 10:42 AM CDT Pulse 94 10/13/2024 10:42 AM CDT Temperature 36.4 C (97.6 F) 10/13/2024 10:42 AM CDT Respiratory Rate 20 10/13/2024 10:4 2 AM CDT Oxygen Saturation 99% 10/13/2024 10: 42 AM CDT Inhaled Oxygen Concentration - - Weight 110.4 kg (243 lb 6.4 oz) 025 10:42 AM CDT Height 165.1 cm (5' 5) 10/13/2024 10:4 2 AM CDT Body Mass Index 40.5 10/13/2024 10:42 AM CDT Plan of Treatment Upcoming Encounters Date Type Department Care Team (Late st Contact Info) Description 12/24/2024 1:00 PM CDT Office Visit [facility] [address] [place] [address] Gerda Minor, [facility] [address] [place] [address] Health Maintenance Due Date Last Done Comments Kidney Health Evaluation 1965 Pneumococcal Vaccine: 50+ Years (2 of 2 - PCV) 05/11/2012 05/11/2011 Zoster Vaccines (1 of 2) 2016 COVID-19 Vaccine ( season) 2024 04/19/2021, 08/07/2020, 07/10/2020 Hemoglobin A1C 06/25/2024 12/24/2023, 06/28, 03/09/2023, Additional history exists Annual Physical 12/23/2024 12/24/2023 Diabetes: Retinopathy Eye Exam 02/27/2025 02/28/2024, 02/16/2022, 02/17/2021, Additional history exists Lipid Panel 10/27/2025 10/27/2024, 06/29, 12/29/2022, Additional history exists Mammogram Screening 12/27/2025 12/28/2023, 11/25/2021, 09/20/2020, Additional history exists Colorectal Cancer Screening FIT-DNA (3 Years) 01/08/2026 01/08/2023, 01/08/2023 DTaP, Tdap and Td Vaccines (4 - Td or Tdap) 08/11/2034 08/11/2024, 11/21/2018, 05/17/2014 Hepatitis B Vaccines Completed 12/01/2003, 06/16/2003, 05/12/2003 Hepatitis C Completed 09/06/2023, 06/20/2021 PHQ-2 (Physician [place]) Completed 10/01/2024 Meningococcal B Vaccine Aged Out No l onger eligible based on patient's age to complete this topic Meningococcal Vaccine Aged Out No leonardo apolonia eligible based on patient's age to complete this topic RSV Immunizations Under 20 Months Aged Out No longer eligible based on patient's age to complete this topic Procedures Procedure Name Priority Date/Time Associated Diagnosis Comments LIPID PANEL Routine 10/27/2024 8:56 AM CDT Dyslipidemia CULTURE, TISSUE W/GRAM STAIN Routine 10/14/2024 1:22 PM CDT Wound drainage DIABETIC RETINOPATHY EXAM (POSITIVE)(SCAN ORDER) Routine 02/28/2024 MG SCREENING W ARACELI MEI DIGI Routine 12/28/2023 2:06 PM CDT Encounter for screening mammogram for malignant neoplasm of breast HEMOGLOBIN, GLYCOSYLATED Routine 12/24/2023 Type 2 diabetes mellitus with diabetic polyneuropathy, with long-term current use of insulin HEPATITIS C ANTIBODY Routine 09/06/2023 3:19 PM CDT Encounter for medication monitoring RA (rheumatoid arthritis) COLOGUARD (EXACT SCIENCE) Routine 01/08/2023 11:30 AM CDT Colon cancer screening from Last 3 Months or Most Recently Relevant to Health Maintenance Results * LIPID PANEL (10/27/2024 8:56 AM CDT) CHOLESTEROL 150 <200 mg/dL [facility] HDL 83 > OR = 50 mg/dL [facility] TRIGLYCERIDES 78 <150 mg/dL [facility] LDL (CALCULATED) 51 mg/dL (calc) [facility] Comment: Reference range: <100 Desirable range <100 mg/dL for primary prevention; <70 mg/dL for patients with CHD or diabetic patients with > or = 2 CHD risk factors. LDL-C is now calculated using the Tracy calculation, which is a validated novel method providing better accuracy than the Friedewald equation in the estimation of LDL-C. Michael ESTEVES et al. MANE. 2013;310(19): 6314-6185 (http://education.IT MOVES IT/faq/ZUT660) CHOL/HDL RATIO 1.8 <5.0 (calc) [facility] NON HDL CHOLESTEROL 67 <130 mg/dL (calc) [facility] Comment: For patients with diabetes plus 1 major ASCVD risk factor, treating to a non-HDL-C goal of <100 mg/dL (LDL-C of <70 mg/dL) is considered a therapeutic option. 10/27/2024 8:56 AM CDT 10/27/2024 8:56 AM CDT Narrative [facility] - MISAEL ORDERS - 10/28/2024 5:05 AM CDT FASTING:YES FASTING: YES Resulting Agency Comment Performing Organization Information: Site ID: [place] Name: [facility] Address: [address] [place] [id number] Director: Gladys Carter MD Gerda Minor [facility] Final Resul t [facility] - MISAEL ORDERS [facility] [id number] [place] [address], MV * (ABNORMAL) CULTURE, TISSUE W/GRAM STAIN (10/14/2024 1:22 PM CDT) SPEC DESCRIPTION TOE,LEFT 10/14/2024 1:27 PM CDT [facility] SPECIAL REQUESTS NO SPECIAL REQUEST 10/14/2024 1:27 PM CDT [facility] GRAM STAIN RESULT NO WHITE BLOOD CELLS SEEN 10/14/2024 9:50 PM CDT [facility] GRAM STAIN RESULT NO ORGANISMS SEEN 10/14/2024 9:50 PM CDT [facility] CULTURE RESULT SPARSE GROWTH OF METHICILLIN RESISTANT STAPHYLOCOCCUS AUREUS FOLLOW ISOLATION PROTOCOL. (A) 10/17/2024 7:58 AM CDT [facility] STRUCTURE OF TOE OF LEFT FOOT / Unknown 10/14/2024 1:22 PM CDT 10/14/2024 3:00 PM CDT Narrative Organism Antibiotic Method Susceptibility Methicillin resistant staphylococcus aureus CLINDAMYCIN ANTHONY (VITEK) >=8: Resistant Methicillin resistant staphylococcus aureus ERYTHROMYCIN ANTHONY (VITEK) 4: Intermediate Comment:INTERMEDIATE Methicillin resistant staphylococcus aureus OXACILLIN ANTHONY (VITEK) >=4: Resistant Methicillin resistant staphylococcus aureus TRIMETH-SULFAMETH. ANTHONY (VITEK) <=10: Sensitive Methicillin resistant staphylococcus aureus TETRACYCLINE ANTHONY (VITEK) >=16: Resistant Methicillin resistant staphylococcus aureus VANCOMYCIN ANTHONY (VITEK) 1: Sensitive Ruthann Villatoro MD MICROBIOLOGY - GENERAL ORDER YELITZA Final Result Performing Organization Address City/[facility]/ZIP Co de Phone Number [facility] [address] [place] [address], [place] [phone] [facility] [address] [place] [address], [place] [phone] * DIABETIC RETINOPATHY EXAM (POSITIVE) (02/28/2024) us [facility] Scanned SCANNING Final Resu lt Performing Organization Address City/[facility]/ZIP Co de Phone Number [facility] ONBASE * MG SCREENING W ARACELI GARCIA (12/28/2023 2:06 PM CDT) Anatomical Region Laterality [...] change from the prior exam. Gerda Minor [facility] MAMMO Final Resul t * A1C (BACK OFFICE) (12/24/2023) Pathologist [facility] HGB A1C 7.4 % [place] [address] [place] 12/24/2023 Gerda Minor [facility] Final Resul t [place] [address] [place] [address] [address] [place] [address], * HEPATITIS C ANTIBODY (09/06/2023 3:19 PM CDT) HEPATITIS C AB NON-REACTI VE NON-REACTI VE 09/06/2023 8:54 PM CDT [facility] 09/06/2023 3:19 PM CDT Rosangela Clayton MD LABORATORY Final Result [facility] [address] [place] [address], * COLOGUARD (EXACT SCIENCE) (01/08/2023 11:30 AM CDT) COLOGUARD RESULT Negative Negative [facility] [employer] (CLIA #:[id number]) Comment: NEGATIVE TEST RESULT. A negative Cologuard [...] screened with both Cologuard and colonoscopy. (Eusebia T. et al, N Engl J Med 2014;370(14):8679-9007) The normal value (reference range) for this assay is negative. COLOGUARD RE-SCREENING RECOMMENDATION: Periodic colorectal cancer screening is an important part of preventive healthcare for asymptomatic individuals at average risk for colorectal cancer. Following a negative Cologuard result, the [place] Cancer Society and U.S. Multi-Society Task Force screening guidelines recommend a Cologuard re-screening interval of 3 years. References: [place] [employer] Guideline for Colorectal Cancer Screening: https://www.cancer.org/cancer/tczzr-lnezil-niidog/xlnghzezm-yayhvldwa-bxvqzju/ac s-rec ommendations.html.; Andriy LUCIANO, Segundo HENAO, Veronica ValienteK, Colorectal Cancer Screening: Recommendations for Physicians and Patients from the U.S. Multi-Society Task Force on Colorectal Cancer Screening , Am J Gastroenterology 2017; 112:8591-2422. TEST DESCRIPTION: Composite algorithmic analysis of stool [...] screened with both Cologuard and colonoscopy. (Eusebia Tate. et al, N Engl J Med 2014;370(14):7571-3108.) Cologuard may produce a false negative or false positive result (no colorectal cancer or precancerous polyp present at colonoscopy follow up). A negative Cologuard test result does not guarantee the absence of CRC or advanced adenoma (pre-cancer). The current Cologuard screening interval is every 3 years. ([place] Cancer Society and U.S. Multi-Society Task Force). Cologuard performance data in a 10,000 patient pivotal study using colonoscopy as the reference method can be accessed at the following location: www.[employer]/results. Additional description of the Cologuard test process, warnings and precautions can be found at www.Colabord.com. STOOL STOOL SPECIMEN / Unknown 01/08/2023 11:30 AM CDT 01/09/2023 9:49 PM CDT Gerda BYRD BODY FLUIDS AND STOOLS PITER WATKINS Final Result [facility] ([facility]) [place] [address], [employer] (CLIA #:[id number]) [place] [address] from Last 3 Months or Most Recently Relevant to Health Maintenance Additional Health Concerns Infection Onset Date Last Indicated MRSA 10/14/2024 10/14/2024 Insurance [facility] Advance Directives * Full Code (Latest Code Status on File) Date Activated Date Inactivated Comments 05/10/2020 6:13 PM 05/11/2020 3:54 PM Care Teams Layout Designer Relationship Specialty [place] [address] [place] [address] PCP - General 12/12/16
--- OUTSIDE RECORDS SUMMARY | 2024-12-18 13:00 | XMS_ITS | Encounter Summary ---
Author Organization [facility] Address [address] [place] [address] Phone Care Team Providers Care Veterinary Receptionist Name Role Phone Lukas Minor VEGETABLE CANNER Primary Care Provider [phone] Encounter Details Date Type Department Care Team (Latest Contact Info) Description 10/28/2024 Results Follow-Up [facility] Rheumatology [address] [facility] Medical Office Building [address] [place] [address] Meme Hassan VEGETABLE CANNER [address] [place] [address] CBC with auto differential, Comprehensive metabolic panel, CRP (acute phase), Additional followed-up results: 5 Social History Tobacco Use Types Packs/Day Years [...] making you feel afraid or unsafe? 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
--- OUTSIDE RECORDS SUMMARY | 2024-12-18 13:00 | XMS_ITS | Encounter Summary ---
Author Organization [facility] Address [address] [place] [address] Care Team Providers Care Travel Rn Name Role Phone Ulisses Minor MD Primary Care Provide r Ulisses Minor MD Primary Care Provide r Ulisses Minor MD Primary Care Provide r Ulisses Minor MD Primary Care Provide r Encounter Details Date Type Department Care Team (Late st Contact Info) Description 04/17/2016 Abstract [facility] Clinics Conversion , Generic Conversion, [...] Description 12/24/2024 1:00 PM CDT Office Visit [facility] [address] [place] [address] Lukas Minor, [facility] [address] [facility] [address] [place] [address] documented as of this encounter Visit Diagnoses Not on filedocumented in this encounter Additional Health Concerns Infection Onset Date Last Indicated Resolved Time Influenza - Seasonal 07/13/2023 07/13/2023 024 12:32 AM 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
--- OUTSIDE RECORDS SUMMARY | 2024-12-18 13:00 | XMS_ITS | Encounter Summary ---
Author Organization [facility] Address [address] [place] [address] Care Team Providers Care Grant Officer Name Role Phone Ulisses Minor MD Primary Care Provide r Encounter Details Date Type Department Care Team (Late st Contact Info) Description 04/02/2017 Prep for Procedure [facility] [place] [address] [id number] Sandra Mckeon MD [address] [facility] [address] [place], [place] [id number] Social History Tobacco Use Types Packs/Day Years [...] Description 12/24/2024 1:00 PM CDT Office Visit [facility] [address] [place] [id number] Lukas Minor, REGULATOR INSPECTOR [address] [place] [address] documented as of this encounter Visit Diagnoses Not on filedocumented in this encounter Additional Health Concerns Infection Onset Date Last Indicated Resolved Time Influenza - Seasonal 07/13/2023 07/13/2023 024 12:32 AM 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
--- OUTSIDE RECORDS SUMMARY | 2024-12-18 13:00 | XMS_ITS | Encounter Summary ---
Author Organization [facility] Address [address] [place] [id number] Care Team Providers Care Medical Assisting Instructor Name Role Phone Ulisses Minor MD Primary Care Provide r Encounter Details Date Type Department Care Team (Late st Contact Info) Description 03/31/2017 [place] [address] , Generic ConversionMD Social History Tobacco Use [...] Description 12/24/2024 1:00 PM CDT Office Visit [facility] [address] [place] [address] Lukas Minor, [facility] [address] [facility] [address] [place], [place] [id number] documented as of this encounter Visit Diagnoses Not on filedocumented in this encounter Additional Health Concerns Infection Onset Date Last Indicated Resolved Time Influenza - Seasonal 07/13/2023 07/13/2023 024 12:32 AM 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
--- OUTSIDE RECORDS SUMMARY | 2024-12-18 13:00 | XMS_ITS | Referral Summary ---
Author Organization [facility] Address [address] [place] [address] Care Team Providers Care Die Fitter Name Role Phone Lukas Minor NP Primary Care Provider [phone]- [phone] Encounters Date Type Department Care Team Description 10/30/2024 Telephone [facility] [address] [facility] [address] [facility] [address] [place] [address] Rio Chaidez RPh 10/30/2024 2:53 PM CDT - 10/30/2024 3:33 PM CDT Emergency [facility] [address] [place] [address] Closed fracture of malleolus of left ankle, initial encounter (Primary Dx) Discharge Disposition: Discharge to home or self care 10/28/2024 Results Follow-Up [facility] Rheumatology [address] [facility] [address] [place] [address] Meme Hassan NP CBC with auto differential, Comprehensive metabolic panel, CRP (acute phase), Additional followed-up results: 5 10/28/2024 3:08 PM CDT - 10/28/2024 11:59 PM CDT Hospital Encounter [facility] [address] [facility] [address] [place] [address] Right lumbar radiculopathy; Spinal stenosis of lumbar region with neurogenic claudication Discharge Disposition: Discharge to home or self care 10/28/2024 3:45 PM CDT Office Visit [facility] Neurosurgery [address] [facility] [address] [place] [address] Ross Mendoza PA Low back pain, non-specific (Primary Dx) 10/24/2024 Orders Only [facility] Neurosurgery [address] [facility] [address] [place] [phone] Ross Mendoza PA Spinal stenosis of lumbar region with neurogenic claudication (Primary Dx); Right lumbar radiculopathy from Last 3 Months Allergies Active Allergy Reactions Criticality Noted Date Comments Clarithromycin Diarrhea,Nausea And Vomiting Low 12/20/2015 Codeine Itching Low 02/08/2011 Other reaction(s): GI Discomfort Gatifloxacin Diarrhea,Nausea And Vomiting Low 12/20/2015 Metformin Nausea only Low 03/08/2018 Medications atorvastatin (LIPITOR) 40 mg tabletIndicat ions:hyperlip idemia Take 1 tablet (40 mg total) by mouth 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 before 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 Active escitalopram (LEXAPRO) 20 mg [...] 1 tablet (88 mcg total) by mouth 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 before breakfast 3 018 Active multivitamin tabletIndicat ions:Vitamin Deficiency Prevention Take 1 tablet by mouth every morning Active omeprazole (PriLOSEC) 20 mg capsuleIndica tions:Treatme nt of Non-Bleeding Gastric Disorder Take 1 capsule (20 mg total) by mouth nightly 1 018 Active triamterene-h ydroCHLOROthi azide (triamterene- hydroCHLOROth iazide) 37.5-25 mg per tablet/capsul eIndications: swelling/BP Take 1 tablet/capsule by mouth every morning Active Pegasus Imaging CorporationTouch Ultra Test strip USE TO TEST THREE TIMES DAILY FOR DIABETES 024 Active fluticasone propionate (FLONASE) 50 mcg/actuation nasal [...] 1 tablet (10 mg total) by mouth 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 before breakfast Active Hyrimoz,CF, Pen 40 mg/0.4 [...] mg total) by mouth every 7 days until follow-up with Dr. Noriega 36 tablet 1 Active folic acid (FOLVITE) 1 mg tablet Take 1 tablet (1 mg total) by mouth daily 90 tablet 1 2024 Active cyclobenzapri ne (FLEXERIL) 5 mg tablet Take 1 tablet (5 mg total) by mouth 3 (three) times a day as needed for muscle spasms 30 tablet 025 Active HYDROcodone-a cetaminophen (NORCO) 5-325 mg per tabletIndicat ions:Pain Take 1 tablet by mouth every 6 (six) hours as needed for pain 12 tablet 025 Active Hyrimoz,CF, Pen 40 mg/0.4 mL pen injector INJECT 1 PEN UNDER THE SKIN EVERY 14 DAYS 1.6 mL 1 025 Active adalimumab (HUMIRA, CF, SYRINGE) 40 mg/0.4 mL syringe kitIndication s:gave one sample pen exp 10/20, lot # [id number] 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 Gender Identity Not on file Sexual Orientation Not on file Last Filed Vital Signs Vital Sign Reading Time Taken Comments Blood Pressure 149/90 10/30/2024 3:30 PM CDT Pulse 81 10/30/2024 3:30 PM CDT Temperature 35.9 C (96.7 F) 10/30/2024 2:02 PM CDT Respiratory Rate 14 10/30/2024 3:30 PM CDT Oxygen Saturation 98% 10/30/2024 3:30 PM CDT Inhaled Oxygen Concentration - - Weight 107.5 kg (237 lb) 10/30/2024 2:02 PM CDT Height 165.1 cm (5' 5) 10/30/2024 2:02 PM CDT Body Mass Index 39.44 10/30/2024 2:02 PM CDT Plan of Treatment Not on file Medical Devices Implanted Type Area Aircraft Inspector Device Identifier Shelf Expiration Date Model / Serial / Lot [employer]ine[employer] Inc Screw Spinal 6.5x40mm [place] Pedicular Fix Sys Strl 670-5967 - [id number] Implanted:Qty: 4 on 10/31/2023 by Lamine Noriega MD PhD at [facility] N/A: Spine Lumbar [employer]ine[employer] Inc [id number] / / [employer]ine[employer] Inc Graft Bone Tube 3/4 Filled Divrtd G2 [id number] - [id number] - [id number] Implanted:Qty: 1 on 10/31/2023 by Lamine Noriega MD PhD at [facility] N/A: Spine Lumbar [employer] Inc 04/30/2025 [id number] / [id number] 137 / Spine[employer] Inc Set Spinal [place] Pedicular Fix Sys Strl Screw Pkg 670-0009 - [id number] Implanted:Qty: 4 on 10/31/2023 by Lamine Noriega MD PhD at [facility] N/A: Spine Lumbar [employer] Inc [id number] / / Cer[employer] Inc Allograft Bone Putty 2.5cc 700025 - [id number] Implanted:Qty: 1 on 10/31/2023 by Lamine Noriega MD PhD at [facility] N/A: Spine Lumbar [employer] Inc 10/25/2025 700-025 / / Spine[employer] Inc Rubén Spinal 45mm Crv [place] Pedicular Fix Sys Strl 670-7408 - [id number] Implanted:Qty: 2 on 10/31/2023 by Lamine Noriega MD PhD at [facility] N/A: Spine Lumbar [employer] Inc [id number] / / [employer]ine[employer] Inc Graft Bone Tube 3/4 Filled Divrtd G2 [id number] - [id number] - [id number] Implanted:Qty: 1 on 10/31/2023 by Lamine Noriega MD PhD at [facility] N/A: Spine Lumbar [employer] Inc 04/30/2025 [id number] / [id number] 137 / Medtronic Inc Infuse Kit Xs Graft Bone Rhbmp-2 Bovine Collagen Lumbar Taper [id number] - [id number] Implanted:Qty: 1 on 10/31/2023 by Lamine Noriega MD PhD at [facility] N/A: Spine Lumbar Medtronic Inc 11/24/2024 [id number] / / Spine[employer] Inc Cage Fusion Dual Chamb Large Interbody Exp System Optimesh 400-2620 - [id number] Implanted:Qty: 1 on 10/31/2023 by Lamine Noriega MD PhD at [facility] N/A: Spine Lumbar [employer]ine[employer] Inc 05/28/2028 [id number] / / [id number] [employer]ine[employer] Inc Graft Bone Tube 3/4 Filled Divrtd G2 [id number] - [id number] - [id number] Implanted:Qty: 1 on 10/31/2023 by Lamine Noriega MD PhD at [facility] N/A: Spine Lumbar [employer]ine[employer] Inc 04/30/2025 [id number] / [id number] 137 / Spine[employer] Inc Graft Bone Tube 3/4 Filled Divrtd G2 [id number] - [id number] - [id number] Implanted:Qty: 1 on 10/31/2023 by Lamine Noriega MD PhD at [facility] N/A: Spine Lumbar [employer]ine[employer] Inc 04/30/2025 [id number] / [id number] 137 / Procedures Procedure Name Priority Date/Time Associated Diagnosis Comments ERYTHROCYTE SEDIMENTATION RATE Routine 12/17/2024 7:54 AM CDT CRP (ACUTE PHASE) Routine 12/17/2024 7:5 4 AM CDT COMPREHENSIVE METABOLIC PANEL Routine 12/17/2024 7:54 AM CDT CBC WITH AUTO DIFFERENTIAL Routine 12/17/2024 7:54 AM CDT Rheumatoid arthritis with rheumatoid factor of right hand without organ or systems involvement (HCC) XR ANKLE LEFT 3 OR MORE VIEWS ED 10/30/2024 2:24 PM CDT XR FOOT LEFT 3 OR MORE VIEWS ED 10/30/2024 2:24 PM CDT XR LUMBAR SPINE AP LAT FLEX EX Schedule Routine, Read Routine (OP Routine) 10/28/2024 3:20 PM CDT Right lumbar radiculopathy Spinal stenosis of lumbar region with neurogenic claudication CRP (ACUTE PHASE) Routine 10/27/2024 8:5 2 AM CDT Rheumatoid arthritis with rheumatoid factor of right hand without organ or systems involvement (HCC) ERYTHROCYTE SEDIMENTATION RATE Routine 10/27/2024 8:52 AM CDT Rheumatoid arthritis with rheumatoid factor of right hand without organ or systems involvement (HCC) COMPREHENSIVE METABOLIC PANEL Routine 10/27/2024 8:52 AM CDT Rheumatoid arthritis with rheumatoid factor of right hand without organ or systems involvement (HCC) CBC WITH AUTO DIFFERENTIAL Routine 10/27/2024 8:52 AM CDT Rheumatoid arthritis with rheumatoid factor of right hand without organ or systems involvement (HCC) HM DIABETES EYE EXAM Routine 02/28/2024 11:06 AM CDT LIPID PANEL STAT 03/08/2018 1:30 PM CDT HEMOGLOBIN A1C STAT 02/19/2018 3:42 PM CDT Encounter for preadmission testing from Last 3 Months or Most Recently Relevant to Health Maintenance Results * (ABNORMAL) CBC with auto differential (12/17/2024 7:54 AM CDT) WBC 6.2 3.8 - 10.8 Thousand/u L [facility] RBC, POC 4.40 3.80 - 5.10 Million/uL [facility] Hgb 13.0 11.7 - 15.5 g/dL [facility] Hct 40.9 35.0 - 45.0 % [facility] MCV 93.0 80.0 - 100.0 fL [facility] MCH 29.5 27.0 - 33.0 pg [facility] MCHC 31.8(L) 32.0 - 36.0 g/dL [facility] Comment: For adults, a slight decrease in the calculated MCHC value (in the range of 30 to 32 g/dL) is most likely not clinically significant; however, it should be interpreted with caution in correlation with other red cell parameters and the patient's clinical condition. Rdw 12.8 11.0 - 15.0 % [facility] Platelets 232 140 - 400 Thousand/u L [facility] MPV 9.1 7.5 - 12.5 fL [facility] Neutrophils, abs 4,210 1,500 - 7,800 cells/uL [facility] Lymphocytes, abs 1,463 850 - 3,900 cells/uL [facility] Monocyte abs 496 200 - 950 cells/uL [facility] Eosinophils, abs 0(L) 15 - 500 cells/uL [facility] Basophils, abs 31 0 - 200 cells/uL [facility] Neutrophils 67.9 % [facility] Lymphocyte pct 23.6 % [facility] Monocytes 8.0 % [facility] Eosinophils 0.0 % [facility] Basophils 0.5 % [facility] Blood 12/17/2024 7:54 AM CDT 12/17/2024 7:54 AM CDT Narrative [facility] - 12/18/2024 4:22 AM CDT FASTING:YES FASTING: YES Meme Hassan NP LAB BLOOD ORDERABLES Fi nal Result Performing Organization Address [facility] de Phone Number [facility] [address] [place] [address] * Erythrocyte sedimentation rate (12/17/2024 7:54 AM CDT) Pathologist [facility] Erythrocyte sedimentation rate 2 < OR = 30 mm/h [facility] 12/17/2024 7:54 AM CDT 12/17/2024 7:54 AM CDT Narrative [facility] - 12/18/2024 4:22 AM CDT FASTING:YES FASTING: YES Meme Hassan NP LAB BLOOD ORDERABLES Fi nal Result Performing Organization Address [facility] Co de Phone Number [facility] [address] [place] [address] * CRP (acute phase) (12/17/2024 7:54 AM CDT) C-RP <3.0 <8.0 mg/L [facility] 12/17/2024 7:54 AM CDT 12/17/2024 7:54 AM CDT Narrative [facility] - 12/18/2024 4:22 AM CDT FASTING:YES FASTING: YES us Meme Hassan NP LAB BLOOD ORDERABLES Fi nal Result [facility] [address] [address] * (ABNORMAL) Comprehensive metabolic panel (12/17/2024 7:54 AM CDT) Glucose 177(H) 65 - 99 mg/dL [facility] Comment: Fasting reference interval For someone without known diabetes, a glucose value >125 mg/dL indicates that they may have diabetes and this should be confirmed with a follow-up test. BUN 12 7 - 25 mg/dL [facility] Creatinine 1.01 0.50 - 1.03 mg/dL [facility] eGFR 65 > OR = 60 mL/min/1.7 3m2 [facility] BUN/creat ratio SEE NOTE: 6 - 22 (calc) [facility] Comment: Not Reported: BUN and Creatinine are within reference range. Sodium 124(L) 135 - 146 mmol/L [facility] Potassium, pl 4.5 3.5 - 5.3 mmol/L [facility] Chloride 89(L) 98 - 110 mmol/L [facility] CO2 25 20 - 32 mmol/L [facility] Calcium 9.0 8.6 - 10.4 mg/dL [facility] Protein, sr 6.8 6.1 - 8.1 g/dL [facility] Albumin 3.9 3.6 - 5.1 g/dL [facility] GLOBULIN 2.9 1.9 - 3.7 g/dL (calc) [facility] Alb/glob ratio 1.3 1.0 - 2.5 (calc) [facility] Bilirubin, total 0.5 0.2 - 1.2 mg/dL [facility] Alk phos 38 37 - 153 U/L [facility] AST 26 10 - 35 U/L [facility] ALT (SGPT) 25 6 - 29 U/L [facility] 12/17/2024 7:54 AM CDT 12/17/2024 7:54 AM CDT Narrative [facility] - 12/18/2024 4:22 AM CDT FASTING:YES FASTING: YES Meme Hassan NP LAB BLOOD ORDERABLES Fi nal Result [facility] [address] [place] [address] * XR Foot Left 3 or More Views (10/30/2024 2:24 PM CDT) Anatomical Region Laterality Modality Lower Extremities, Foot Left Computed Radiography 10/30/2024 2:36 PM CDT Narrative 10/30/2024 2:40 PM CDT EXAM DESCRIPTION: XR FOOT LEFT 3 OR MORE VIEWS; XR ANKLE LEFT 3 OR MORE VIEWS REASON FOR STUDY: accidental fall Left foot and ankle pain and swelling after a fall today TECHNIQUE: 3 radiographic view(s) of the left foot. 3 radiographic views of the left ankle. COMPARISON: None. FINDINGS: BONES/JOINTS: Minimally displaced lateral malleolus fracture. Ankle joint effusion. Calcaneal enthesopathic changes. Scattered degenerative changes. Questionable age-indeterminate nondisplaced fracture of the 4th proximal phalanx. SOFT TISSUES: Soft tissue edema about the ankle most pronounced overlying the lateral malleolus. IMPRESSION: Minimally displaced lateral malleolus fracture. Questionable age-indeterminate nondisplaced fracture of the 4th proximal phalanx. Correlate with point tenderness. THIS IS AN ELECTRONICALLY VERIFIED FINAL REPORT 10/30/2024 2:40 PM - Electronically signed by Juve Boland M.D. NS: NS Report ID: [id number] Reading Location: [id number] Procedure Note Juve Boland MD - 10/30/2024 EXAM DESCRIPTION: XR FOOT LEFT 3 OR MORE VIEWS; XR ANKLE LEFT 3 OR MOREVIEWS REASON FOR STUDY: accidental fall Left foot and ankle pain and swelling after a fall today TECHNIQUE: 3 radiographic view(s) of the left foot. 3 radiographic viewsof the left ankle. COMPARISON: None. FINDINGS: BONES/JOINTS: Minimally displaced lateral malleolus fracture. Ankle joint effusion. Calcaneal enthesopathic changes. Scattered degenerative changes. Questionable age-indeterminate nondisplacedfracture of the 4th proximal phalanx. SOFT TISSUES: Soft tissue edema about the ankle most pronounced overlyingthe lateral malleolus. IMPRESSION: Minimally displaced lateral malleolus fracture. Questionable age-indeterminate nondisplaced fracture of the 4th proximal phalanx. Correlate with point tenderness. THIS IS AN ELECTRONICALLY VERIFIED FINAL REPORT 10/30/2024 2:40 PM - Electronically signed by Juve Boland M.D. NS: NS Report ID: [id number] Reading Location: [id number] [facility] XR PROCEDURES Final Re sult * XR Ankle Left 3 or More Views (10/30/2024 2:24 PM CDT) Anatomical Region Laterality Modality Lower Extremities, Ankle Left Compute d Radiography 10/30/2024 2:36 PM CDT Narrative 10/30/2024 2:40 PM CDT EXAM DESCRIPTION: XR FOOT LEFT 3 OR MORE VIEWS; XR ANKLE LEFT 3 OR MORE VIEWS REASON FOR STUDY: accidental fall Left foot and ankle pain and swelling after a fall today TECHNIQUE: 3 radiographic view(s) of the left foot. 3 radiographic views of the left ankle. COMPARISON: None. FINDINGS: BONES/JOINTS: Minimally displaced lateral malleolus fracture. Ankle joint effusion. Calcaneal enthesopathic changes. Scattered degenerative changes. Questionable age-indeterminate nondisplaced fracture of the 4th proximal phalanx. SOFT TISSUES: Soft tissue edema about the ankle most pronounced overlying the lateral malleolus. IMPRESSION: Minimally displaced lateral malleolus fracture. Questionable age-indeterminate nondisplaced fracture of the 4th proximal phalanx. Correlate with point tenderness. THIS IS AN ELECTRONICALLY VERIFIED FINAL REPORT 10/30/2024 2:40 PM - Electronically signed by Juve Boland M.D. NS: NS Report ID: [id number] Reading Location: [id number] Procedure Note Juve Boland MD - 10/30/2024 EXAM DESCRIPTION: XR FOOT LEFT 3 OR MORE VIEWS; XR ANKLE LEFT 3 OR MOREVIEWS REASON FOR STUDY: accidental fall Left foot and ankle pain and swelling after a fall today TECHNIQUE: 3 radiographic view(s) of the left foot. 3 radiographic viewsof the left ankle. COMPARISON: None. FINDINGS: BONES/JOINTS: Minimally displaced lateral malleolus fracture. Ankle joint effusion. Calcaneal enthesopathic changes. Scattered degenerative changes. Questionable age-indeterminate nondisplacedfracture of the 4th proximal phalanx. SOFT TISSUES: Soft tissue edema about the ankle most pronounced overlyingthe lateral malleolus. IMPRESSION: Minimally displaced lateral malleolus fracture. Questionable age-indeterminate nondisplaced fracture of the 4th proximal phalanx. Correlate with point tenderness. THIS IS AN ELECTRONICALLY VERIFIED FINAL REPORT 10/30/2024 2:40 PM - Electronically signed by Juve Boland M.D. NS: NS Report ID: [id number] Reading Location: [id number] [facility] XR PROCEDURES Final Re sult * XR Spine Lumbar Ap Lat Flex Ext min 4 Views (10/28/2024 3:20 PM CDT) Anatomical Region Laterality Modality L-spine N/A Computed Radiogr aphy 10/28/2024 3:28 PM CDT Impressions 10/28/2024 3:28 PM CDT 1. 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 FINDINGS: Comparison to 05/01/2024. Unchanged posterior instrumented fusion at L4-L5. Hardware is intact. Multilevel degenerative disease at the unfused segments greatest and moderate at L3-L4. No abnormal motion with bending. Vertebral body heights preserved. Right upper quadrant surgical clips, partially visualized gastric band. Procedure Note Alaina Moreau MD - 10/28/2024 EXAMINATION: XR SPINE LUMBAR AP LAT FLEX EXT MIN 4 VIEWS HISTORY: Back pain. FINDINGS: Comparison to 05/01/2024. Unchanged posterior instrumented fusion at L4-L5. Hardware is intact. Multilevel degenerative disease at the unfused segments greatest and moderate at L3-L4. No abnormal motion with bending. Vertebral body heights preserved. Right upper quadrant surgical clips, partially visualized gastric band. IMPRESSION: 1. 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 Electronically signed by: Alaina Moreau MD [facility] XR PROCEDURES Marilynn l Result * (ABNORMAL) CBC with auto differential (10/27/2024 8:52 AM CDT) WBC 4.0 3.8 - 10.8 Thousand/u L [facility] RBC, POC 4.09 3.80 - 5.10 Million/uL [facility] Hgb 12.0 11.7 - 15.5 g/dL [facility] Hct 37.8 35.0 - 45.0 % [facility] MCV 92.4 80.0 - 100.0 fL [facility] MCH 29.3 27.0 - 33.0 pg [facility] MCHC 31.7(L) 32.0 - 36.0 g/dL [facility] Comment: For adults, a slight decrease in the calculated MCHC value (in the range of 30 to 32 g/dL) is most likely not clinically significant; however, it should be interpreted with caution in correlation with other red cell parameters and the patient's clinical condition. Rdw 14.0 11.0 - 15.0 % [facility] Platelets 191 140 - 400 Thousand/u L [facility] MPV 9.5 7.5 - 12.5 fL [facility] Neutrophils, abs 2,160 1,500 - 7,800 cells/uL [facility] Lymphocytes, abs 1,304 850 - 3,900 cells/uL [facility] Monocyte abs 504 200 - 950 cells/uL [facility] Eosinophils, abs 0(L) 15 - 500 cells/uL [facility] Basophils, abs 32 0 - 200 cells/uL [facility] Neutrophils 54 % [facility] Lymphocyte pct 32.6 % [facility] Monocytes 12.6 % [facility] Eosinophils 0.0 % [facility] Basophils 0.8 % [facility] Blood 10/27/2024 8:52 AM CDT 10/27/2024 8:52 AM CDT Narrative [facility] - 10/28/2024 8:42 AM CDT FASTING:YES FASTING: YES us Meme Hassan TECHNICAL MANAGER LAB BLOOD ORDERABLES Fi nal Result Performing Organization Address City/[facility] Co de Phone Number [facility] [address] [place] [address] * Erythrocyte sedimentation rate (10/27/2024 8:52 AM CDT) Pathologist [facility] Erythrocyte sedimentation rate 2 < OR = 30 mm/h [facility] Blood 10/27/2024 8:52 AM CDT 10/27/2024 8:52 AM CDT Narrative [facility] - 10/28/2024 8:42 AM CDT FASTING:YES FASTING: YES us Meme Hassan TECHNICAL MANAGER LAB BLOOD ORDERABLES Fi nal Result [facility] [address] [address] [address] * CRP (acute phase) (10/27/2024 8:52 AM CDT) [facility] C-RP <3.0 <8.0 mg/L [facility] Blood 10/27/2024 8:52 AM CDT 10/27/2024 8:52 AM CDT Narrative [facility] - 10/28/2024 8:42 AM CDT FASTING:YES FASTING: YES Meme Hassan TECHNICAL MANAGER LAB BLOOD ORDERABLES Fi nal Result [facility] [address] [address] [place] [address] * (ABNORMAL) Comprehensive metabolic panel (10/27/2024 8:52 AM CDT) [facility] Glucose 119(H) 65 - 99 mg/dL [facility] Comment: Fasting reference interval For someone without known diabetes, a glucose value between 100 and 125 mg/dL is consistent with prediabetes and should be confirmed with a follow-up test. BUN 18 7 - 25 mg/dL [facility] Creatinine 0.92 0.50 - 1.03 mg/dL [facility] eGFR 72 > OR = 60 mL/min/1.7 3m2 [facility] BUN/creat ratio SEE NOTE: 6 - 22 (calc) [facility] Comment: Not Reported: BUN and Creatinine are within reference range. Sodium 129(L) 135 - 146 mmol/L [facility] Potassium, pl 3.9 3.5 - 5.3 mmol/L [facility] Chloride 96(L) 98 - 110 mmol/L [facility] CO2 26 20 - 32 mmol/L [facility] Calcium 9.1 8.6 - 10.4 mg/dL [facility] Protein, sr 6.0(L) 6.1 - 8.1 g/dL [facility] Albumin 3.6 3.6 - 5.1 g/dL [facility] GLOBULIN 2.4 1.9 - 3.7 g/dL (calc) [facility] Alb/glob ratio 1.5 1.0 - 2.5 (calc) [facility] Bilirubin, total 0.5 0.2 - 1.2 mg/dL [facility] Alk phos 33(L) 37 - 153 U/L [facility] AST 24 10 - 35 U/L [facility] ALT (SGPT) 25 6 - 29 U/L [facility] Blood 10/27/2024 8:52 AM CDT 10/27/2024 8:52 AM CDT Narrative [facility] - 10/28/2024 8:42 AM CDT FASTING:YES FASTING: YES Meme Hassan NP LAB BLOOD ORDERABLES [facility] Result [facility] [address] [place] [address] * (ABNORMAL) DIABETES EYE EXAM (02/28/2024 11:06 AM CDT) Historical Provider HEALTH MAINTENANCE Edited Result - Final * Lipid panel (03/08/2018 1:30 PM CDT) Cholesterol 176 30 - 199 mg/dL [facility] Comment: Interpretive Data Ages < or = [...] revised on 2018. Triglycerides 125 <=149 mg/dL [facility] Comment: Interpretive Data Ages < or = [...] revised on 2018. HDL 55 >=40 mg/dL [facility] Comment: Interpretive Data Ages < or = [...] 2018. LDL, calculated 96 <=129 mg/dL [facility] Comment: Interpretive Data Ages < or = [...] on 2018. Non-HDL Cholesterol 121 mg/dL [facility] Comment: Interpretive Data Ages < or = [...] last revised on 2018. Chol/HDL ratio 3 [facility] Blood specimen (specimen) 03/08/2018 1:30 PM CDT 03/08/2018 3:30 PM CDT Narrative [facility] - 03/09/2018 1:00 AM CDT us Aurelio Massey MD LAB BLOOD ORDERABLES Final Result [facility] Department [place] [address] * (ABNORMAL) Hemoglobin A1c (02/19/2018 3:42 PM CDT) Hgb A1C 10.1(H) 4.0 - 5.6 % [facility] Comment:Testing performed by : [facility], [address] [place] [address]., [address] Estimated Average Glucose 243 mg/dL [facility] Comment: The ADA recommends reporting an estimated Average Glucose (eAG) with all Hemoglobin A1c results using the equation derived from a study of 507 normal and diabetic adults. Minority populations were underrepresented and children were not included. (Diabetes Care 31:1171-3857, 2008). The eAG is not equivalent to a fasting glucose. Testing performed by: [facility], [address] [place] [address]., [address] Blood specimen (specimen) 02/19/2018 3:42 PM CDT 02/19/2018 8:10 PM CDT Narrative [facility] - 02/19/2018 8:26 PM CDT us Meaghan Smith NP LAB BLOOD ORDERABL ES Final Result [facility] [address] [facility]. Department [email or web address] [address] from Last 3 Months or Most Recently Relevant to Health Maintenance Additional Health Concerns Infection Onset Date Last Indicated MDR gram neg/ESBL 10/15/2023 10/15/2023 Insurance Villij ACCESS CHOICE Villij ACCESS CHOICE Advance Directives For more information, please contact: [phone] * Full Code (Latest Code Status on File) Date Activated Date Inactivated Comments 10/31/2023 8:47 PM 11/01/2023 5:43 PM * Full Code Date Activated Date Inactivated Comments 03/08/2018 3:53 PM 03/10/2018 3:46 PM Care Teams Die Fitter Relationship Specialty [place] [address] [facility] [address] [place] [address] PCP - General Family Medicine 07/24/24
--- OUTSIDE RECORDS SUMMARY | 2024-12-18 13:00 | XMS_ITS | Encounter Summary ---
Author Organization [facility] Address [address] [place] [address] Care Team Providers Care Applications Architect Name Role Phone Ulisses Minor MD Primary Care Provide r Encounter Details Date Type Department Care Team (Late st Contact Info) Description 05/11/2017 Abstract H CONVERSION [address] [place] [address] , Generic Conversion, Social History Tobacco Use [...] Description 12/24/2024 1:00 PM CDT Office Visit [facility] [address] [place] [id number] Lukas Minor, [facility] [address] [place], [place] [id number] documented as of this encounter Visit Diagnoses Not on filedocumented in this encounter Additional Health Concerns Infection Onset Date Last Indicated Resolved Time Influenza - Seasonal 07/13/2023 07/13/2023 024 12:32 AM GAUGE CONTROLLER MRSA 10/14/2024 10/14/2024 documented as of this encounter Care Teams Applications Architect Relationship Specialty [place] [address] [facility] [address] [place] [address] PCP - General 12/12/16 documented as of this encounter
--- OUTSIDE RECORDS SUMMARY | 2024-12-18 13:00 | XMS_ITS | Encounter Summary ---
Author Organization [facility] Address [address] [place] [address] Care Team Providers Care Director On Air Name Role Phone Ulisses Minor MD Primary Care Provide r Ulisses Minor MD Primary Care Provide r Ulisses Minor MD Primary Care Provide r Ulisses Minor MD Primary Care Provide r Encounter Details Date Type Department Care Team (Late st Contact Info) Description 06/17/2012 Abstract [facility] Conversion Md, Generic Conversion, Social History Tobacco Use Types [...] 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
--- OUTSIDE RECORDS SUMMARY | 2024-12-18 13:00 | XMS_ITS | Clinical Summary ---
Author Organization [facility] Address [address] [place] [address] Care Team Providers Care Color Paste Mixing Supervisor Name Role Phone Lukas Minor NP Primary Care Provider [phone] Allergies Active Allergy Reactions Criticality Noted Date Comments Clarithromycin Diarrhea,Nausea And Vomiting Low 12/20/2015 Codeine Itching Low 02/08/2011 Other reaction(s): GI Discomfort Gatifloxacin Diarrhea,Nausea And Vomiting Low 12/20/2015 Metformin Nausea only Low 03/08/2018 Medications atorvastatin (LIPITOR) 40 mg tabletIndicat ions:hyperlip idemia Take 1 tablet (40 mg total) by mouth extracorporeal technician before breakfast Active escitalopram (LEXAPRO) 20 mg [...] 1 tablet (88 mcg total) by mouth extracorporeal technician before breakfast 3 018 Active multivitamin tabletIndicat ions:Vitamin Deficiency Prevention Take 1 tablet by mouth every morning Active omeprazole (PriLOSEC) 20 mg capsuleIndica tions:Treatme nt of Non-Bleeding Gastric Disorder Take 1 capsule (20 mg total) by mouth nightly 1 018 Active triamterene-h ydroCHLOROthi azide (triamterene- hydroCHLOROth iazide) 37.5-25 mg per tablet/capsul eIndications: swelling/BP Take 1 tablet/capsule by mouth every morning Active OneTouch Ultra Test strip USE TO [...] 1 tablet (10 mg total) by mouth extracorporeal technician before breakfast Active Hyrimoz,CF, Pen 40 mg/0.4 [...] 1 spray into affected nostril(s) as needed 025 2025 Active guaiFENesin-c odeine (GUAITUSS AC) liquid 100-10 mg/5 mL Take 5 mL by mouth every 4 (four) hours as needed Active Mounjaro 12.5 mg/0.5 mL pen injector injection 12.5 MG (0.5 ML) SUBCUTANEOUSLY WEEKLY 025 Active amitriptyline (ELAVIL) 25 mg tablet Take [...] daily 90 tablet 1 025 2024 Active cyclobenzapri ne (FLEXERIL) 5 mg [...] SKIN EVERY 14 DAYS 1.6 mL 1 Active adalimumab (HUMIRA, CF, SYRINGE) 40 mg/0.4 mL syringe kitIndication s:gave one sample pen exp 10/20, lot # [id number] [facility] [id number] Use as directed 1 each 025 2024 Discontinued(P atient Reported) adalimumab-ad az (Hyrimoz,CF, Pen) 40 mg/0.4 mL pen injector Inject 40 mg under the skin every 14 (fourteen) days 2.4 mL 025 2024 Discontinued Active Problems Problem Noted Date Diagnosed Date Other intervertebral disc degeneration, lumbar r egion 06/21/2023 Hemangioma of liver 01/17/2018 Overview (01/17/2018): Added automatically from request for surgery [id number] Cervical radiculopathy 09/27/2016 Allergic rhinitis due to [...] Date Type Department Care Team Description 10/30/2024 2:53 PM CDT - 10/30/2024 3:[address] [facility] Emergency Department [facility] [place] [address] Closed fracture of malleolus of left ankle, initial encounter (Primary Dx) Discharge Disposition: Discharge to home or self care 10/30/2024 Telephone [facility] [address] [facility] [address] [place] [address] Rio Chaidez RPh 10/28/2024 3:45 PM CDT Office Visit [facility] Neurosurgery [facility] Medical Office Building [address] [place] [phone] Ross Mendoza PA Low back pain, non-specific (Primary Dx) 10/28/2024 3:08 PM CDT - 10/28/2024 11:59 PM CDT Hospital Encounter [facility] [address] [place] [address] [address] [place] [phone] Right lumbar radiculopathy; Spinal stenosis of lumbar region with neurogenic claudication Discharge Disposition: Discharge to home or self care 10/28/2024 Results Follow-Up [facility] Rheumatology [address] [facility] [address] [place] [phone] Meme Hassan, PARTS DEPARTMENT MANAGER CBC with auto differential, Comprehensive metabolic panel, CRP (acute phase), Additional followed-up results: 5 10/24/2024 Orders Only [facility] Neurosurgery [address] [place] [address] Medical Office Building [address] [place] [phone] Ross Mendoza PA Spinal stenosis of lumbar region with neurogenic claudication (Primary Dx); Right lumbar radiculopathy from Last 3 Months Immunizations Immunization Administration [...] on file 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 Gender Identity Not on file Sexual [...] 10/30/2024 2:02 PM CDT Plan of Treatment Health Maintenance [...] a risk series) 05/17/2021 04/19/2021, 08/07/2020, 07/10/2020 Breast Cancer Screening-Mammogram 12/27/2024 12/28/2023, 12/28/2023, 11/25/2021, Additional history exists Influenza Vaccine (#1) 2025 , 03/21/2023, 03/03/2022, Additional history exists Dilated Eye Exam 02/27/2025 02/28/2024 Lipid Panel 10/27/2025 10/27/2024, 02/2 11/2023, 04/30/2021, Additional history exists eGFR 12/17/2025 12/17/2024, 06/0 06/2024, 10/31/2023, Additional history exists DTaP/Tdap/Td Vaccine (4 - Td or Tdap) 08/11/2034 08/11/2024, 11/21/2018, 05/17/2014 Hepatitis B Screening Completed 12/01/2003 , 06/16/2003, 05/12/2003 Medical Devices Implanted Type Area Enrollment Processor Device Identifier Shelf Expiration Date Model / Serial / Lot [employer] Inc Screw Spinal 6.5x40mm [place] Pedicular Fix Sys Strl 670-1773 - [id number] Implanted:Qty: 4 on 10/31/2023 by Lamien Noriega MD PhD at [facility] N/A: Spine Lumbar Spine[employer] Inc 670-6540 / / Spine[employer] Inc Graft Bone Tube 3/4 Filled Divrtd G2 913761 - [id number] - [id number] Implanted:Qty: 1 on 10/31/2023 by Lamine Noriega MD PhD at [facility] N/A: Spine Lumbar [employer]ine[employer] Inc 04/30/2025083358 / [id number] / Spine[employer] Inc Set Spinal [place] Pedicular Fix Sys Strl Screw Pkg 6700005 - [id number] Implanted:Qty: 4 on 10/31/2023 by Lamine Noriega MD PhD at [facility] N/A: Spine Lumbar [employer]ine[employer] Inc 670-0007 / / Cerapedics Inc Allograft Bone Putty 2.5cc 700-146 - [id number] Implanted:Qty: 1 on 10/31/2023 by Lamine Noriega MD PhD at [facility] N/A: Spine Lumbar [employer] Inc 10/25/2025 700-025 / / Spineology Inc Rubén Spinal 45mm Crv [place] Pedicular Fix Sys Strl 670-3787 - [id number] Implanted:Qty: 2 on 10/31/2023 by Lamine Noriega MD PhD at [facility] N/A: Spine Lumbar Spine[employer] Inc [id number] / / [employer]ine[employer] Inc Graft Bone Tube 3/4 Filled Divrtd G2 011155 - [id number] - [id number] Implanted:Qty: 1 on 10/31/2023 by Lamine Noriega MD PhD at [facility] N/A: Spine Lumbar Spine[employer] Inc 04/30/2025 / [id number] 137 / Medtronic Inc Infuse Kit Xs Graft Bone Rhbmp-2 Bovine Collagen Lumbar Taper [id number] - [id number] Implanted:Qty: 1 on 10/31/2023 by Lamine Noriega MD PhD at [facility] N/A: Spine Lumbar Med[employer]onic Inc 11/24/2024 [id number] / / Spine[employer] Inc Cage Fusion Dual Chamb Large Interbody Exp System Optimesh 400-2620 - [id number] Implanted:Qty: 1 on 10/31/2023 by Lamine Noriega MD PhD at [facility] N/A: Spine Lumbar Spineology Inc 05/28/2028 400-2620 / / [id number] Spine[employer] Inc Graft Bone Tube 3/4 Filled Divrtd G2 526770 - [id number] - [id number] Implanted:Qty: 1 on 10/31/2023 by Lamine Noriega MD PhD at [facility] N/A: Spine Lumbar Spine[employer] Inc 04/30/2025 [id number] / [id number] 137 / Spine[employer] Inc Graft Bone Tube 3/4 Filled Divrtd G2 516178 - [id number] - [id number] Implanted:Qty: 1 on 10/31/2023 by Lamine Noriega MD PhD at [facility] N/A: Spine Lumbar Spine[employer] Inc 04/30/2025 183731 / [id number] / Procedures Procedure Name Priority Date/Time [...] hand without organ or systems involvement (HCC) DIABETES EYE EXAM Routine 02/28/2024 11:06 AM [...] BLOOD ORDERABLES Fi nal Result [facility] [address] [place] [address] * Erythrocyte sedimentation rate (12/17/2024 7:54 AM CDT) Erythrocyte sedimentation rate 2 < OR = 30 mm/h [facility] 12/17/2024 7:54 AM CDT 12/17/2024 7:54 AM CDT Narrative [facility] - 12/18/2024 4:22 AM CDT FASTING:YES FASTING: YES us Meme Hassan NP LAB BLOOD ORDERABLES Fi nal Result Performing Organization Address [facility] Co de Phone Number [facility] [address] [place] [address] * CRP (acute phase) (12/17/2024 7:54 AM CDT) Pathologist [facility] C-RP <3.0 <8.0 mg/L [facility] 12/17/2024 7:54 AM CDT 12/17/2024 7:54 AM CDT Narrative [facility] - 12/18/2024 4:22 AM CDT FASTING:YES FASTING: YES Meme Hassan NP LAB BLOOD ORDERABLES Fi nal Result Performing Organization Address [facility] de Phone Number [facility] [address] [place] [address] * (ABNORMAL) Comprehensive metabolic panel (12/17/2024 7:54 AM CDT) Pathologist [facility] Glucose 177(H) 65 - 99 mg/dL [facility] [...] YES Meme Hassan NP LAB BLOOD ORDERABLES nal Result [facility] [address] [place] [address] * XR Foot Left 3 or More [...] Juve Boland M.D. NS: NS Report ID: [id number] Reading Location: [id number] Procedure Note Juve Boland MD - 10/30/2024 [...] Juve Boland M.D. NS: NS Report ID: [id number] Reading Location: [id number] [facility]Y IMG XR PROCEDURES Final Re [...] Juve Boland M.D. NS: NS Report ID: [id number] Reading Location: [place] [address] Procedure Note Juve Boland MD - 10/30/2024 [...] Juve Boland M.D. NS: NS Report ID: [id number] Reading Location: [place] [address] [facility] XR PROCEDURES Final Re [...] CDT FASTING:YES FASTING: YES us Meme Hassan PARTS DEPARTMENT MANAGER LAB BLOOD ORDERABLES Fi nal Result [facility] [address] [address] [place] [address] * Erythrocyte sedimentation rate (10/27/2024 8:52 AM CDT) Pathologist [facility] Erythrocyte sedimentation rate 2 < OR = 30 mm/h [facility] Blood 10/27/2024 8:52 AM CDT 10/27/2024 8:52 AM CDT Narrative [facility] - 10/28/2024 8:42 AM CDT FASTING:YES FASTING: YES Meme Hassan PARTS DEPARTMENT MANAGER LAB BLOOD ORDERABLES Fi nal Result Performing Organization Address [facility] Co de Phone Number [facility] [address] [place] [address] * CRP (acute phase) (10/27/2024 8:52 AM CDT) C-RP <3.0 <8.0 mg/L [facility] Blood 10/27/2024 8:52 AM CDT 10/27/2024 8:52 AM CDT Narrative [facility] - 10/28/2024 8:42 AM CDT FASTING:YES FASTING: YES Meme Hassan PARTS DEPARTMENT MANAGER LAB BLOOD ORDERABLES Fi nal Result Performing Organization Address [facility] Co de Phone Number [facility] [address] [place] [address] * (ABNORMAL) Comprehensive metabolic panel (10/27/2024 8:52 AM CDT) Glucose 119(H) 65 - 99 mg/dL [facility] [...] AM CDT FASTING:YES FASTING: YES Meme Hassan PARTS DEPARTMENT MANAGER LAB BLOOD ORDERABLES Fi nal Result [facility] [address] [place] [address] * (ABNORMAL) DIABETES EYE EXAM (02/28/2024 11:06 AM CDT) Historical Provider HEALTH MAINTENANCE Edited Result - Final * Lipid panel (03/08/2018 1:30 PM CDT) Cholesterol 176 30 - 199 mg/dL [facility] Comment: Interpretive Data Ages < or [...] revised on 2018. Triglycerides 125 <=149 mg/dL [facility] Comment: Interpretive Data Ages < or [...] revised on 2018. HDL 55 >=40 mg/dL [facility] Comment: Interpretive Data Ages < or [...] on 2018. LDL, calculated 96 <=129 mg/dL [facility] Comment: Interpretive Data Ages < or [...] revised on 2018. Non-HDL Cholesterol 121 mg/dL [facility] Comment: Interpretive Data Ages < or [...] last revised on 2018. Chol/HDL ratio 3 [facility] Blood specimen (specimen) 03/08/2018 1:30 PM CDT 03/08/2018 3:30 PM CDT Narrative [facility] - 03/09/2018 1:00 AM CDT Aurelio Massey MD LAB BLOOD ORDERABLES Final Result [facility] [place] [address] * (ABNORMAL) Hemoglobin A1c (02/19/2018 3:42 PM CDT) Hgb A1C 10.1(H) 4.0 - 5.6 % [facility] Comment:Testing performed by : [facility], [address] [place] [address], [place]., [address] Estimated Average Glucose 243 mg/dL [facility] Comment: The ADA recommends reporting an estimated Average Glucose (eAG) with all Hemoglobin A1c results using the equation derived from a study of 507 normal and diabetic adults. Minority populations were underrepresented and children were not included. (Diabetes Care 31:0611-6561, 2008). The eAG is not equivalent to a fasting glucose. Testing performed by: [facility], [address] [place] [address], [place]., [address] Blood specimen (specimen) 02/19/2018 3:42 PM CDT 02/19/2018 8:10 PM CDT Narrative [facility] - 02/19/2018 8:26 PM CDT us Meaghan Smith NP LAB BLOOD ORDERABL ES Final Result [facility] [address] [facility] [place] [address] from Last 3 Months or Most Recently Relevant to Health Maintenance Additional Health Concerns Infection Onset Date Last Indicated MDR gram neg/ESBL 10/15/2023 10/15/2023 Insurance [employer] CHOICE [employer] ACCESS CHOICE Advance Directives For more information, please contact: [phone] * Full Code (Latest Code Status on File) Date Activated Date Inactivated Comments 10/31/2023 8:47 PM 11/01/2023 5:43 PM * Full Code Date Activated Date Inactivated Comments 03/08/2018 3:53 PM 03/10/2018 3:46 PM Care Teams Color Paste Mixing Supervisor Relationship Specialty [place] [address] [place] [address] PCP - General Family Medicine 07/24/24
--- OUTSIDE RECORDS SUMMARY | 2024-12-18 13:00 | XMS_ITS | Encounter Summary ---
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 Answer Date of Assessment Author Status No 05/10/2020 5:51 PM DISTRIBUTION SUPERINTENDENT Activ e * Do you have serious difficulty walking or climbing stairs? Answer Date of Assessment Author Status No 05/10/2020 5:51 PM DISTRIBUTION SUPERINTENDENT Savita Alvarado NP Active * Do you have difficulty dressing or bathing? Answer Date of Assessment Author Status No 05/10/2020 5:51 PM DISTRIBUTION SUPERINTENDENT Savita Alvarado NP Active * Because of a physical, mental, or emotional condition, do you have difficulty doing errands alone such as visiting a doctor's office or shopping? Answer Date of Assessment Author Status No 05/10/2020 5:51 PM DISTRIBUTION SUPERINTENDENT Savita Alvarado NP Active documented as of [...] PM CDT Office Visit [facility] [address] [place] [address] Lukas Minor, CODE ENFORCEMENT SUPERVISOR [address] [place] [address] documented as of this encounter Visit Diagnoses Not on filedocumented in this encounter Additional Health Concerns Infection Onset Date Last Indicated Resolved Time MRSA 10/14/2024 10/14/2024 Assessment Noted Time PHQ-9 Depression Total Score: 0 08/13/19 22 10:52 AM CDT documented as of this encounter Care Teams Freight Dispatcher Relationship Specialty [place] [address] [place], [place] [address] PCP - General 12/12/16 documented as of this encounter
--- OUTSIDE RECORDS SUMMARY | 2024-12-18 13:00 | XMS_ITS | Encounter Summary ---
Author Organization [facility] Address [address] [place] [address] Care Team Providers Care Leather Scraper Name Role Phone Ulisses Minor MD Primary Care Provide r Ulisses Minor MD Primary Care Provide r Ulisses Minor MD Primary Care Provide r Ulisses Minor MD Primary Care Provide r Encounter Details Date Type Department Care Team (Late st Contact Info) Description 11/08/2012 Abstract [facility] Clinics Conversion [...] 12/24/2024 1:00 PM CDT Office Visit [facility] [address] [place] [address] Lukas Minor, [facility] [address] [facility] [address] [place] [address] documented as of this encounter Visit Diagnoses Not on filedocumented in this encounter Additional Health Concerns Infection Onset Date Last Indicated Resolved Time Influenza - Seasonal 07/13/2023 07/13/2023 024 12:32 AM 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
--- OUTSIDE RECORDS SUMMARY | 2024-12-18 13:00 | XMS_ITS | Encounter Summary ---
Author Organization [facility] Address [address] [place] [address] Care Team Providers Care Ethylbenzene Cracking Supervisor Name Role Phone Ulisses Minor MD Primary Care Provide r Ulisses Minor MD Primary Care Provide r Ulisses Minor MD Primary Care Provide r Ulisses Minor MD Primary Care Provide r Encounter Details Date Type Department Care Team (Late st Contact Info) Description 05/23/2012 Abstract [facility] Clin[facility] Conversion , Generic Conversion, Social History [...] Description 12/24/2024 1:00 PM CDT Office Visit [facility] [address] [place] [address] Lukas Minor, [facility] [address] [facility] [address] [place] [address] documented as of this encounter Visit Diagnoses Not on filedocumented in this encounter Additional Health Concerns Infection Onset Date Last Indicated Resolved Time Influenza - Seasonal 07/13/2023 07/13/2023 024 12:32 AM PARQUETRY LAYER MRSA 10/14/2024 10/14/2024 documented as of this encounter Care Teams Ethylbenzene Cracking Supervisor Relationship Specialty Start [place] [address] [place] [address] PCP - General 12/12/16 [place] [address] [place] [address] PCP - General 12/07/16 12/11/16 [place] [address] [place] [address] PCP - General 08/22/16 12/06/16 [place] [address] [place] [address] PCP - General 07/17/16 08/21/16 documented as of this encounter
--- OUTSIDE RECORDS SUMMARY | 2024-12-18 13:00 | XMS_ITS | Encounter Summary ---
Author Organization [facility] Address [address] [place] [address] Care Team Providers Care Qc Analyst Name Role Phone Ulisses Minor MD Primary Care Provide r Ulisses Minor MD Primary Care Provide r Ulisses Minor MD Primary Care Provide r Ulisses Minor MD Primary Care Provide r Encounter Details Date Type Department Care Team (Late st Contact Info) Description 12/29/2011 Abstract [facility] Conversion , Generic Conversion, Social [...] Description 12/24/2024 1:00 PM CDT Office Visit [facility] [address] [place] [address] Lukas Minor, [facility] [address] [facility] [address] [place] [address] documented as of this encounter Visit Diagnoses Not on filedocumented in this encounter Additional Health Concerns Infection Onset Date Last Indicated Resolved Time Influenza - Seasonal 07/13/2023 07/13/2023 024 12:32 AM QUALITY ASSURANCE TEST PROGRAM MANAGER MRSA 10/14/2024 10/14/2024 documented as of this encounter Care Teams Qc Analyst Relationship Specialty [place] [address] [place] [address] PCP - General 12/12/16 [place] [address] [place] [address] PCP - General 12/07/16 12/11/16 [place] [address] [place] [address] PCP - General 08/22/16 12/06/16 [place] [address] [place] [address] PCP - General 07/17/16 08/21/16 documented as of this encounter
--- OUTSIDE RECORDS SUMMARY | 2024-12-18 13:00 | XMS_ITS | Encounter Summary ---
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 Answer Date of Assessment Author Status No 05/10/2020 5:51 PM PREPRESS TECHNICIAN Activ e * Do you have serious difficulty walking or climbing stairs? Answer Date of Assessment Author Status No 05/10/2020 5:51 PM PREPRESS TECHNICIAN Mensing, Savita Terrell NP Active * Do you have difficulty dressing or bathing? Answer Date of Assessment Author Status No 05/10/2020 5:51 PM Savita Martínez NP Active * Because of a physical, mental, or emotional condition, do you have difficulty doing errands alone such as visiting a doctor's office or shopping? Answer Date of Assessment Author Status No 05/10/2020 5:51 PM Savita Martínez NP Active documented as of this encounter [...] Description 12/24/2024 1:00 PM CDT Office Visit [facility] [address] [place] [address] Lukas Minor, [facility] [address] [place] [address] documented as of this encounter Visit Diagnoses Not on filedocumented in this encounter Additional Health Concerns Infection Onset Date Last Indicated Resolved Time MRSA 10/14/2024 10/14/2024 Assessment Noted Time PHQ-9 Depression Total Score: 0 08/13/19 22 10:52 AM CDT documented as of this encounter Care Teams High Heel Builder Relationship Specialty [place] [address] [place] [id number] PCP - General 12/12/16 documented as of this encounter
[2024-12-18 14:16] LABS: Sodium 122 mmol/L (137-145)
[2024-12-18 14:23] LABS: CRP < 0.5 mg/dL (<1.0)
[2024-12-18 15:24] LABS: MRSA (PCR) DETECTED (NOT DETECTE)
== END 2024-12-18 12:52 | disposition home or self-care (01) ==
LOC: ANHSURGERY 12:56
PROVIDERS: Anesthesiology; PCP Pediatrics; Visit Provider Orthopaedic Surgery
DX: M75.100 Unspecified rotator cuff tear or rupture of unspecified shoulder, not specified as traumatic (principal); I10 Essential (primary) hypertension; E78.5 Hyperlipidemia, unspecified; E11.9 Type 2 diabetes mellitus without complications; E87.1 Hypo-osmolality and hyponatremia
CPT/HCPCS: 36415; 84295; 86140; 87641; 93005

== ENCOUNTER 2025-01-02 01:20 | Day surgery (SDC) | payer BC, SELFPAY ==
[2024-12-17 13:51] VITALS: BMI 40.9
--- NOTE | 2024-12-17 13:53 | PC.NURSE ---
Addendum entered by Jose Fang RN 12/24/24 12:43: Aside from a few medication changes patient says no other changes to health history. Informed patient to be here at 1000 on 01-02-2025 for surgery at 1200. All other instructions the same. Patient has a written copy of the instructions below. Original Note: Report to the Outpatient Waiting Room, entrance under the green pavilion located off [facility], at time _0730_ on date _[id number]_. Planned Procedure Time: _929_.? Time changes happen often and if your time is changed the preop area will call you the afternoon before. - You and your visitor will be asked to self-screen and do not enter if you have any COVID symptoms. Please call surgeon if you need to reschedule. - A mask is optional within the hospital at this time. Patients may have clear liquids (water, carbonated beverages, clear teas, apple juice) until 3 hours prior to surgery with a maximum of 20 ounces. - No food from midnight until time of surgery and no smoking, or chewing tobacco (or any form of nicotine). No chewing gum, candy or mints. Take only the following medications with a SIP of water on the morning of surgery: ___Levothyroxine and Escitalopram DO NOT STOP ANY OF YOUR OTHER PRESCRIPTION MEDICATIONS PRIOR TO SURGERY EXCEPT THE FOLLOWING Hold all vitamins and supplements for 3 days per anesthesiologist. Medications to discontinue per physician ____Ibuprofen Ok to take Acetaminophen Date to take last blqp___[phone]____ Please no make-up, nail swazi, hairspray, perfume, deodorant, or body powder the day of surgery.? No jewelry (including any body piercings) or valuables the day of surgery, leave them at home.? Please take a shower or bath the night before, or the morning of, surgery with an antibacterial soap.? Wear comfortable, loose fitting clothing. - Jewelry must be removed prior to entering the operating room.? Rings and piercings that are not removed may be cut off. - The hospital will not accept responsibility for valuables.? - Please leave all valuables, including medications, at home the day of surgery. If you are going home after surgery, a licensed ross carrier driver must drive you home.? - NO public transportation without another adult if you receive anesthesia. - We recommend that an adult stay with you for 24 hours following discharge. - We also recommend that you do not drive, make important decision, drink alcoholic beverages, or take any drugs that were not prescribed by your health care provider for at least 24 hours after your discharge time. Follow any additional instructions given to you from your surgeon. Telephone instructions given to __Vanesa___and asked if any additional questions and then verbalized understanding. Patient advised to call surgeon office or pre surgery nurse liaison [phone] if any additional questions.
[2025-01-02] VITALS (11 sets, daily range): BP systolic 118–152; BP diastolic 47–77; PULSE 85–105; RESP 10–18; TEMP 36.3–36.4; O2SAT 95–100
--- OUTSIDE RECORDS SUMMARY | 2025-01-02 01:32 | XMS_ITS | Encounter Summary ---
Author Organization [facility] Address [address] [place] [address] Care Team Providers Care Podiatric Surgeon Name Role Phone Ulisses Minor MD Primary Care Provide r Ulisses Minor MD Primary Care Provide r Ulisses Minor MD Primary Care Provide r Ulisses Minor MD Primary Care Provide r Encounter Details Date Type Department Care Team (Late st Contact Info) Description 07/17/2011 Abstract [facility] Conversion , Generic ConversionMD Social History Tobacco Use [...] - Seasonal 07/13/2023 07/13/2023 024 12:32 AM MERCHANDISE DELIVERER MRSA 10/14/2024 10/14/2024 documented as of this encounter Care Teams Podiatric Surgeon Relationship Specialty Start [place] [address] [place] [address] PCP - General 12/12/16 [place] [address] [place] [address] PCP - General 12/07/16 12/11/16 [place] [address] [place] [address] PCP - General 08/22/16 12/06/16 [place] [address] [place] [address] PCP - General 07/17/16 08/21/16 documented as of this encounter
--- OUTSIDE RECORDS SUMMARY | 2025-01-02 01:32 | XMS_ITS | Encounter Summary ---
Author Organization [facility] Address [address] [place] [address] Care Team Providers Care Merchandising Lead Name Role Phone Ulisses Minor MD Primary Care Provide r Ulisses Minor MD Primary Care Provide r Ulisses Minor MD Primary Care Provide r Ulisses Minor MD Primary Care Provide r Encounter Details Date Type Department Care Team (Late st Contact Info) Description 04/02/2012 Abstract [facility] Conversion , Generic ConversionMD Social History Tobacco [...] - Seasonal 07/13/2023 07/13/2023 024 12:32 AM MANAGER BASKETBALL MRSA 10/14/2024 10/14/2024 documented as of this encounter Care Teams Merchandising Lead Relationship Specialty [place] [address] [place] [address] PCP - General 12/12/16 [place] [address] [place] [address] PCP - General 12/07/16 12/11/16 [place] [address] [place] [address] PCP - General 08/22/16 12/06/16 [place] [address] [place] [address] PCP - General 07/17/16 08/21/16 documented as of this encounter
--- OUTSIDE RECORDS SUMMARY | 2025-01-02 01:32 | XMS_ITS | Clinical Summary ---
Author Organization [facility] Address [address] [place] [address] Care Team Providers Care Surg Rn Name Role Phone Lukas Minor NP Primary Care Provider [phone] Allergies Active Allergy Reactions Criticality Noted Date Comments Clarithromycin Diarrhea,Nausea And Vomiting Low 12/20/2015 Codeine Itching Low 02/08/2011 Other reaction(s): GI Discomfort Gatifloxacin Diarrhea,Nausea And Vomiting Low 12/20/2015 Metformin Nausea only Low 03/08/2018 Medications atorvastatin (LIPITOR) 40 mg tabletIndicat ions:hyperlip idemia Take 1 tablet (40 mg total) by mouth chief information officer before breakfast Active escitalopram (LEXAPRO) 20 mg [...] 1 tablet (88 mcg total) by mouth chief information officer before breakfast 3 018 Active multivitamin tabletIndicat ions:Vitamin Deficiency Prevention Take 1 tablet by mouth every morning Active omeprazole (PriLOSEC) 20 mg capsuleIndica tions:Treatme nt of Non-Bleeding Gastric Disorder Take 1 capsule (20 mg total) by mouth nightly 1 018 Active OneTouch Ultra Test strip USE [...] 1 tablet (10 mg total) by mouth chief information officer before breakfast Active traMADoL (ULTRAM) 50 mg tablet TAKE [...] MG (0.5 ML) SUBCUTANEOUSLY WEEKLY 025 Active methotrexate 2.5 mg tabletIndicat ions:Rheumato id [...] 14 DAYS 1.6 mL 1 025 Active sodium chloride 1,000 mg tablet Take 1 tablet (1 g total) by mouth 3 (three) times a day 025 Active triamterene-h ydroCHLOROthi azide (triamterene- hydroCHLOROth iazide) 37.5-25 mg per tablet/capsul eIndications: swelling/BP Take 1 tablet/capsule by mouth every morning 2024 Discontinued(P atient Reported) Hyrimoz,CF, Pen 40 mg/0.4 mL pen injector 024 2024 Discontinued(P atient Reported) amitriptyline (ELAVIL) 25 mg tablet Take 1 tablet (25 mg total) by mouth nightly 025 2024 Discontinued(P atient Reported) adalimumab (HUMIRA, CF, SYRINGE) 40 mg/0.4 mL syringe kitIndication s:gave one sample pen exp 10/20, lot # [id number] formerly named [facility] [id number] Use as directed 1 each 025 2024 Discontinued(P atient Reported) adalimumab-ad az (Hyrimoz,CF, Pen) 40 mg/0.4 mL pen injector Inject 40 mg under the skin every 14 (fourteen) days 2.4 mL 025 2024 Discontinued Active Problems Problem Noted Date Diagnosed Date Other intervertebral disc degeneration, lumbar r egion 06/21/2023 Hemangioma of liver 01/17/2018 Overview (01/17/2018): Added automatically from request for surgery [id number] Cervical radiculopathy 09/27/2016 Allergic rhinitis due to [...] Encounters Date Type Department Care Team Description 12/30/2024 9:20 AM CDT Office Visit [facility] [address] [facility] [address] [place] [address] Meme Hassan, CONDUIT INSTALLER Rheumatoid arthritis involving multiple sites with positive rheumatoid factor (HCC) (Primary Dx); High risk medication use 10/30/2024 2:53 PM CDT - 10/30/2024 3:33 PM CDT Emergency [facility] Emergency Department [facility] [place] [address] Closed fracture of malleolus of left ankle, initial encounter (Primary Dx) Discharge Disposition: Discharge to home or self care 10/30/2024 Telephone [facility] [address] [facility] [address] [place] [address] Rio Chaidez RPh 10/28/2024 3:45 PM CDT Office Visit [facility] [address] [place] [address] Medical Office Building [address] [place] [address] Ross Mendoza PA Low back pain, non-specific (Primary Dx) 10/28/2024 3:08 PM CDT - 10/28/2024 11:59 PM CDT Hospital Encounter [id number] [address] [place] [address] [address] [place] [phone] Right lumbar radiculopathy; Spinal stenosis of lumbar region with neurogenic claudication Discharge Disposition: Discharge to home or self care 10/28/2024 Results Follow-Up [facility] [address] [facility] Medical Office Building [address] [place] [phone] Meme Hassan NP CBC with auto differential, Comprehensive metabolic panel, CRP (acute phase), Additional followed-up results: 5 10/24/2024 Orders Only [facility] [address] [place] [address] Medical Office Building [address] [place] [address] Ross Mendoza PA Spinal stenosis of lumbar [...] Comments ROTATOR CUFF REPAIR Bilateral 10/2017 Right, 1994 Left [facility] 06/28/2006 - 07/25/2006 Right [...] stenosis (uterine cervix) Type 2 diabetes mellitus Diverticulitis of colon Gastric reflux Hyperthyroidism Rheumatoid [...] you have a drink containing alcohol? Never 12/30/2024 Q2: How many drinks containi ng alcohol do you have on a typical day when you are drinking? Patient does not drink Q3: How often do you have si x or more drinks on one occasion? Never 12/30/2024 Personal Safety Answer Date Recorded Have you ever been in or are you currently in a harmful physical or emotional relationship or is someone making you feel afraid or unsafe? 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 Gender Identity Not on file Sexual Orientation Not on file Obstetrics History Last Filed Vital Signs Vital Sign Reading Time Taken Comments Blood Pressure 156/93 12/30/2024 9:16 AM CDT Pulse 80 12/30/2024 9:16 AM CDT Temperature 36.3 C (97.3 F) 12/30/2024 9:16 AM CDT Respiratory Rate 14 10/30/2024 3:30 PM CDT Oxygen Saturation 99% 12/30/2024 9:16 AM CDT Inhaled Oxygen Concentration - - Weight 109.3 kg (241 lb) 12/30/2024 9:16 AM CDT Height 165.1 cm (5' 5) 12/30/2024 9:16 AM CDT Body Mass Index 40.1 12/30/2024 9:16 AM CDT Plan of Treatment Health Maintenance [...] 06/16/2003, 05/12/2003 Medical Devices Implanted Type Area Chef Passenger Vessel Device Identifier Shelf Expiration Date Model / Serial / Lot [employer]ine[employer] Inc Screw Spinal 6.5x40mm Lattimore Pedicular Fix Sys Strl 670-2930 - [id number] Implanted:Qty: 4 on 10/31/2023 by Lamine Noriega MD PhD at [facility] N/A: Spine Lumbar Sp[employer] Inc 949-4953 / / [employer]ine[employer] Inc Graft Bone Tube 3/4 Filled Divrtd G2 596628 - [id number] - [id number] Implanted:Qty: 1 on 10/31/2023 by Lamine Noriega MD PhD at [facility] N/A: Spine Lumbar [employer]ine[employer] Inc 04/30/2025 [id number] / [id number] 137 / Spineology Inc Set Spinal Lattimore Pedicular Fix Sys Strl Screw Pkg 670-0008 - [id number] Implanted:Qty: 4 on 10/31/2023 by Lamine Noriega MD PhD at [facility] N/A: Spine Lumbar [employer]ine[employer] Inc 670-0007 / / Cerapedics Inc Allograft Bone Putty 2.5cc 700-381 - [id number] Implanted:Qty: 1 on 10/31/2023 by Lamine Noriega MD PhD at [facility] N/A: Spine Lumbar [employer] Inc 10/25/2025 700-025 / / Spineology Inc Rbuén Spinal 45mm Crv Lattimore Pedicular Fix Sys Strl 670-1854 - [id number] Implanted:Qty: 2 on 10/31/2023 by Lamine Noriega MD PhD at [facility] N/A: Spine Lumbar Spine[employer] Inc 670-4045 / / [employer]ine[employer] Inc Graft Bone Tube 3/4 Filled Divrtd G2 219164 - [id number] - [id number] Implanted:Qty: 1 on 10/31/2023 by Lamine Noriega MD PhD at [facility] N/A: Spine Lumbar [employer]ine[employer] Inc 04/30/2025 [id number] / [id number] 137 / Medtronic Inc Infuse Kit Xs Graft Bone Rhbmp-2 Bovine Collagen Lumbar Taper [id number] - [id number] Implanted:Qty: 1 on 10/31/2023 by Lamine Noriega MD PhD at [facility] N/A: Spine Lumbar Medtronic Inc 11/24/2024 [id number] / / Spine[employer] Inc Cage Fusion Dual Chamb Large Interbody Exp System Optimesh 400-2620 - [id number] Implanted:Qty: 1 on 10/31/2023 by Lamine Noriega MD PhD at [facility] N/A: Spine Lumbar Spine[employer] Inc 05/28/2028 400-2620 / / [id number] Spine[employer] Inc Graft Bone Tube 3/4 Filled Divrtd G2 818023 - [id number] - [id number] Implanted:Qty: 1 on 10/31/2023 by Lamine Noriega MD PhD at [facility] N/A: Spine Lumbar Spine[employer] Inc 04/30/2025 [id number] / [id number] 137 / Spine[employer] Inc Graft Bone Tube 3/4 Filled Divrtd G2 500324 - [id number] - [id number] Implanted:Qty: 1 on 10/31/2023 by Lamine Noriega MD PhD at [facility] N/A: Spine Lumbar [employer]ine[employer] Inc 04/30/2025 [id number] / [id number] / Procedures Procedure Name Priority Date/Time [...] BLOOD ORDERABLES Fi nal Result [facility] [address] [place] [address] * Erythrocyte sedimentation rate (12/17/2024 7:54 AM CDT) [facility] Erythrocyte sedimentation rate 2 < OR = 30 mm/h [facility] 12/17/2024 7:54 AM CDT 12/17/2024 7:54 AM CDT Narrative [facility] - 12/18/2024 4:22 AM CDT FASTING:YES FASTING: YES Meme Hassan CONDUIT INSTALLER LAB BLOOD ORDERABLES Fi nal Result Performing Organization Address [facility]/ZIP Co de Phone Number [facility] [address] [place] [address] * CRP (acute phase) (12/17/2024 7:54 AM CDT) [facility] C-RP <3.0 <8.0 mg/L [facility] 12/17/2024 7:54 AM CDT 12/17/2024 7:54 AM CDT Narrative [facility] - 12/18/2024 4:22 AM CDT FASTING:YES FASTING: YES Meme Hassan NP LAB BLOOD ORDERABLES Fi nal Result Performing Organization Address [facility]/ZIP Co de Phone Number [facility] [address] [place] [address] * (ABNORMAL) Comprehensive metabolic panel (12/17/2024 7:54 AM CDT) [facility] Glucose 177(H) 65 - 99 mg/dL [facility] [...] AM CDT FASTING:YES FASTING: YES Meme Hassan CONDUIT INSTALLER LAB BLOOD ORDERABLES Fi nal Result [facility] [address] [place] [address] * XR Foot Left 3 or More [...] Juve Boland M.D. NS: NS Report ID: [id number] Reading Location: [id number] Procedure Note Juve Boland MD - 10/30/2024 [...] Juve Boland M.D. NS: NS Report ID: [id number] Reading Location: [id number] [facility] IMG XR PROCEDURES Final Re [...] Juve Boland M.D. NS: NS Report ID: [id number] Reading Location: [id number] Procedure Note Juve Boland MD - 10/30/2024 [...] Juve Boland M.D. NS: NS Report ID: [id number] Reading Location: [place] [address] [facility] JOY IMG XR PROCEDURES Final Re [...] Electronically signed by: Alaina Moreau MD Ross Alejandro JOY IMG XR PROCEDURES Marilynn l Result * (ABNORMAL) CBC with auto differential (10/27/2024 8:52 AM CDT) Pathologist [facility] WBC 4.0 3.8 - 10.8 Thousand/u L [...] CDT FASTING:YES FASTING: YES us Meme Hassan CONDUIT INSTALLER LAB BLOOD ORDERABLES Fi nal Result Performing Organization Address [facility] de Phone Number [facility] [address] [place] [address] * Erythrocyte sedimentation rate (10/27/2024 8:52 AM CDT) Erythrocyte sedimentation rate 2 < OR = 30 mm/h [facility] Blood 10/27/2024 8:52 AM CDT 10/27/2024 8:52 AM CDT Narrative [facility] - 10/28/2024 8:42 AM CDT FASTING:YES FASTING: YES us Meme Hassan NP LAB BLOOD ORDERABLES Fi nal Result Performing Organization Address [facility] de Phone Number [facility] [address] [place] [address] * CRP (acute phase) (10/27/2024 8:52 AM CDT) Pathologist [facility] C-RP <3.0 <8.0 mg/L [facility] Blood 10/27/2024 8:52 AM CDT 10/27/2024 8:52 AM CDT Narrative [facility] - 10/28/2024 8:42 AM CDT FASTING:YES FASTING: YES us Meme Hassan NP LAB BLOOD ORDERABLES Fi nal Result Performing Organization Address [facility] de Phone Number [facility] [address] [place] [address] * (ABNORMAL) Comprehensive metabolic panel (10/27/2024 8:52 [...] BLOOD ORDERABLES Fi nal Result [facility] [address] [place] [address] * (ABNORMAL) DIABETES EYE EXAM (02/28/2024 11:06 AM CDT) us Historical Provider HEALTH MAINTENANCE Edited Result - Final * Lipid panel (03/08/2018 1:30 PM CDT) Cholesterol 176 30 - 199 mg/dL [facility] Comment: Interpretive Data Ages < or [...] on 2018. Triglycerides 125 <=149 mg/dL [facility] Comment: Interpretive Data Ages < or [...] on 2018. HDL 55 >=40 mg/dL [facility] Comment: Interpretive Data Ages < or [...] 2018. LDL, calculated 96 <=129 mg/dL [facility] Comment: Interpretive Data Ages < or [...] on 2018. Non-HDL Cholesterol 121 mg/dL [facility] Comment: Interpretive Data Ages < or [...] revised on 2018. Chol/HDL ratio 3 [facility] Blood specimen (specimen) 03/08/2018 1:30 PM CDT 03/08/2018 3:30 PM CDT Narrative [facility] - 03/09/2018 1:00 AM CDT us Aurelio Massey MD LAB BLOOD ORDERABLES Final Result [facility] Department of Laboratories [place], [place] [id number] * (ABNORMAL) Hemoglobin A1c (02/19/2018 3:42 PM CDT) Hgb A1C 10.1(H) 4.0 - 5.6 % [facility] Comment:Testing performed by : [facility], [address] [place] [address], [place]., [address] Estimated Average Glucose 243 mg/dL [facility] Comment: The ADA recommends reporting an estimated Average Glucose (eAG) with all Hemoglobin A1c results using the equation derived from a study of 507 normal and diabetic adults. Minority populations were underrepresented and children were not included. (Diabetes Care 31:7043-6303, 2008). The eAG is not equivalent to a fasting glucose. Testing performed by: [facility], [address] [place] [address]., [id number] Blood specimen (specimen) 02/19/2018 3:42 PM CDT 02/19/2018 8:10 PM CDT Narrative [facility] - 02/19/2018 8:26 PM CDT us Meaghan Smith NP LAB BLOOD ORDERABL ES Final Result Performing Organization Address City/State/ZIP Co hi Phone Number [facility] [address] [facility]. Department [place] [address] from Last 3 Months or Most Recently Relevant to Health Maintenance Additional Health Concerns Infection Onset Date Last Indicated MDR gram neg/ESBL 10/15/2023 10/15/2023 [place] [address] [employer] ACCESS CHOICE ANTHEM ACCESS CHOICE Advance Directives For more information, please contact: [phone] * Full Code (Latest Code Status on File) Date Activated Date Inactivated Comments 10/31/2023 8:47 PM 11/01/2023 5:43 PM * Full Code Date Activated Date Inactivated Comments 03/08/2018 3:53 PM 03/10/2018 3:46 PM Care Teams Surg Rn Relationship Specialty [place] [address] [facility] [address] [place] [address] PCP - General Family Medicine 07/24/24
--- OUTSIDE RECORDS SUMMARY | 2025-01-02 01:32 | XMS_ITS | Encounter Summary ---
Author Organization [facility] Address [address] [place] [address] Care Team Providers Care Chief General Pediatric Clinic Name Role Phone Ulisses Minor MD Primary Care Provide r Ulisses Minor MD Primary Care Provide r Ulisses Minor MD Primary Care Provide r Ulisses Minor MD Primary Care Provide r Encounter Details Date Type Department Care Team (Late st Contact Info) Description 12/29/2011 Abstract [facility] Conversion , Generic ConversionMD Social History [...] - Seasonal 07/13/2023 07/13/2023 024 12:32 AM NUCLEAR WEAPONS SPECIALIST MRSA 10/14/2024 10/14/2024 documented as of this encounter Care Teams Chief General Pediatric Clinic Relationship Specialty [place] [address] [place] [address] PCP - General 12/12/16 [place] [address] [place] [address] PCP - General 12/07/16 12/11/16 [place] [address] [place] [address] PCP - General 08/22/16 12/06/16 [place] [address] [place] [address] PCP - General 07/17/16 08/21/16 documented as of this encounter
--- OUTSIDE RECORDS SUMMARY | 2025-01-02 01:32 | XMS_ITS | Encounter Summary ---
Author Organization [facility] Address [address] [place] [address] Care Team Providers Care Job Recruiter Name Role Phone Ulisses Minor MD Primary Care Provide r Reason for Referral * Imaging (Routine) - New Request Specialty Diagnoses / Procedures Referred By Contac t Referred To Contact RADIOLOGY Diagnoses Hypothyroidism (acquired) Post-menopausal History of fracture Procedures BONE DENSITY/DEXA Lukas Minor FNP [address] [place] [address] Phone: tel: fax: Referral ID Status Reason Start Date Expiration Date V isits Requested Visits Authorized [id number] New Request 12/31/2024 12/31/2025 1 1 Reason for Visit * Reason Onset Date Comments Orders 12/31/2024 Encounter Details Date Type Department Care Team (Late Contact Info) Description 12/31/2024 Telephone [facility] [address] [place] [id number] Lukas Mnior FNP [address] [place] [address] Orders Social History Tobacco Use Types Packs/Day Years Used Date Smoking Tobacco: Never Passive Smoke Exposure: Past Smokeless Tobacco: Never Alcohol Use Standard Drinks/Week Comments Yes 1.7 (1 standard drink = 0.6 oz p ure alcohol) rarely PHQ-2 Answer Date Recorded Patient Health Questionnaire-2 Score 0 12/24/2024 Comments No Sex and Gender Information Value Date Recorded Sex Assigned at Female 08/11/2024 9:45 AM CDT Legal Sex Female 8:33 PM CDT Gender Identity Not on file Sexual Orientation Not on file documented as of this encounter Functional Status * RETIRED Are you deaf or do you have serious difficulty hearing Answer Date of Assessment Author Status No 05/10/2020 5:51 PM FISCAL ACCOUNTANT Activ e * RETIRED Are you blind or do you have serious difficulty seeing, even when wearing glasses? Answer Date of Assessment Author Status No 05/10/2020 5:51 PM FISCAL ACCOUNTANT Activ e * Do you have serious difficulty walking or climbing stairs? Answer Date of Assessment Author Status No 05/10/2020 5:51 PM FISCAL ACCOUNTANT MensingSavita FUDGE CANDY MAKER Active * Do you have difficulty dressing or bathing? Answer Date of Assessment Author Status No 05/10/2020 5:51 PM FISCAL ACCOUNTANT MensingSavita FUDGE CANDY MAKER Active * Because of a physical, mental, or emotional condition, do you have difficulty doing errands alone such as visiting a doctor's office or shopping? Answer Date of Assessment Author Status No 05/10/2020 5:51 PM FISCAL ACCOUNTANT MensingSavita FUDGE CANDY MAKER Active documented as of this encounter Mental Status * Because of a physical, mental, or emotional condition, do you have serious difficulty concentrating, remembering, or making decisions? Answer Entry Date Author Status No 05/10/2020 5:51 PM FISCAL ACCOUNTANT MensingSavita FUDGE CANDY MAKER Active documented in this encounter Progress Notes * Jessica He - 12/31/2024 3:48 PM CDT NEEDING AN ORDER FOR BONE DENSITY. WILL GO TO [facility] IN [place]. documented in this encounter Plan of Treatment Scheduled Orders Name Type Priority Associated Diagnoses Orde r Schedule BONE DENSITY/DEXA DEXA Routine Hypothyroidism (acquired) Post-menopausal History of fracture Expected: 12/31/2024, Expires: 01/31/2026 documented as of this encounter Visit Diagnoses Diagnosis Hypothyroidism (acquired)- Primary Unspecified hypothyroidism Post-menopausal Asymptomatic postmenopausal status (age-related) (natural) History of fracture Personal history of traumatic fracture documented in this encounter Additional Health Concerns Infection Onset Date Last Indicated Resolved Time MRSA 10/14/2024 10/14/2024 Assessment Noted Time PHQ-9 Depression Total Score: 0 08/13/19 22 10:52 AM CDT documented as of this encounter Care Teams Job Recruiter Relationship Specialty [place] [address] [place] [address] PCP - General 12/12/16 documented as of this encounter
--- OUTSIDE RECORDS SUMMARY | 2025-01-02 01:32 | XMS_ITS | Encounter Summary ---
Author Organization [facility] Address [address] [facility] [place] [address] Care Team Providers Care Technical Inspector Name Role Phone Ulisses Minor MD Primary Care Provide r Encounter Details Date Type Department Care Team (Late st Contact Info) Description 06/02/2011 [facility] [address] [place] [address] Social History Tobacco Use Types Packs/Day Years Used Date Smoking Tobacco: Never Smokeless Tobacco: Never Alcohol Use Standard Drinks/Week Comments Yes 0 (1 standard drink = 0.6 oz pur e alcohol) social/rare Comments No Sex and Gender Information Value Date Recorded Sex Assigned at Not on file Legal Sex Female 12:13 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
--- OUTSIDE RECORDS SUMMARY | 2025-01-02 01:32 | XMS_ITS | Encounter Summary ---
Author Organization [facility] Address [address] [place] [address] Care Team Providers Care Tool Room Lathe Operator Name Role Phone Ulisses Minor MD Primary Care Provide r Ulisses Minor MD Primary Care Provide r Ulisses Minor MD Primary Care Provide r Ulisses Minor MD Primary Care Provide r Encounter Details Date Type Department Care Team (Late st Contact Info) Description 06/01/2016 Abstract [facility] Conversion , Generic ConversionMD Social History Tobacco [...] - Seasonal 07/13/2023 07/13/2023 024 12:32 AM WINDLASSER MRSA 10/14/2024 10/14/2024 documented as of this encounter Care Teams Tool Room Lathe Operator Relationship Specialty [place] [address] [place] [address] PCP - General 12/12/16 [place] [address] [place] [address] PCP - General 12/07/16 12/11/16 [place] [address] [place] [address] PCP - General 08/22/16 12/06/16 [place] [address] [place] [address] PCP - General 07/17/16 08/21/16 documented as of this encounter
--- OUTSIDE RECORDS SUMMARY | 2025-01-02 01:32 | XMS_ITS | Clinical Summary ---
Author Organization [facility] Address [address] [facility] [place] [address] Care Team Providers Care Photographic Hand Developer Name Role Phone Ulisses Minor MD Primary Care Provide r Source Comments [facility],non-owned Affiliates and Associated Physician Practices is amultiple site organization consisting of ambulatory clinics and hospital sitesin [place], [place], [place] and [place]. This disclosure is being madepursuant to the Care Everywhere program and may not contain all information available regarding this patient. 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
--- OUTSIDE RECORDS SUMMARY | 2025-01-02 01:32 | XMS_ITS | Encounter Summary ---
Author Organization [facility] Address [address] [place] [address] Care Team Providers Care Thermal Technician Name Role Phone Ulisses Minor MD Primary Care Provide r Encounter Details Date Type Department Care Team (Late st Contact Info) Description 04/02/[address] [facility] [place] [address] [id number] Sandra Mckeon MD [address] [facility] [address] [place], [place] [id number] Social History Tobacco Use Types Packs/Day Years [...] - Seasonal 07/13/2023 07/13/2023 024 12:32 AM DEVOPS ENGINEER MRSA 10/14/2024 10/14/2024 documented as of this encounter Care Teams Thermal Technician Relationship Specialty [place] [address] [place] [address] PCP - General 12/12/16 documented as of this encounter
--- OUTSIDE RECORDS SUMMARY | 2025-01-02 01:32 | XMS_ITS | Encounter Summary ---
Author Organization [facility] Address [address] [place] [address] Care Team Providers Care Distillation Operator Helper Name Role Phone Ulisses Minor MD Primary Care Provide r Ulisses Minor MD Primary Care Provide r Ulisses Minor MD Primary Care Provide r Ulisses Minor MD Primary Care Provide r Encounter Details Date Type Department Care Team (Late st Contact Info) Description 04/17/2016 Abstract [facility] Conversion , Generic ConversionMD Social History [...] - Seasonal 07/13/2023 07/13/2023 024 12:32 AM MEDICAL BILLING SUPERVISOR MRSA 10/14/2024 10/14/2024 documented as of this encounter Care Teams Distillation Operator Helper Relationship Specialty [place] [address] [place] [address] PCP - General 12/12/16 [place] [address] [place] [address] PCP - General 12/07/16 12/11/16 [place] [address] [place] [address] PCP - General 08/22/16 12/06/16 [place] [address] [place] [address] PCP - General 07/17/16 08/21/16 documented as of this encounter
--- OUTSIDE RECORDS SUMMARY | 2025-01-02 01:32 | XMS_ITS | Encounter Summary ---
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
--- OUTSIDE RECORDS SUMMARY | 2025-01-02 01:32 | XMS_ITS | Encounter Summary ---
Author Organization [facility] Address [address] [place] [address] Care Team Providers Care Miller Apprentice Name Role Phone Ulisses Minor MD Primary Care Provide r Encounter Details Date Type Department Care Team (Late st Contact Info) Description 03/31/2017 [place] [address] , Generic ConversionMD Social History Tobacco Use [...] - Seasonal 07/13/2023 07/13/2023 024 12:32 AM RETAIL SHIFT SUPERVISOR MRSA 10/14/2024 10/14/2024 documented as of this encounter Care Teams Miller Apprentice Relationship Specialty [place] [address] [place] [address] PCP - General 12/12/16 documented as of this encounter
--- OUTSIDE RECORDS SUMMARY | 2025-01-02 01:32 | XMS_ITS | Encounter Summary ---
Author Organization [facility] Address [address] [place] [address] Care Team Providers Care Alarm Investigator Name Role Phone Ulisses Minor MD Primary Care Provide r Encounter Details Date Type Department Care Team (Late st Contact Info) Description 08/14/2024 [employer] Message [place] [phone] [place] [address] 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 Answer Date of Assessment Author Status No 05/10/2020 5:51 PM VOTING MACHINE REPAIRER Activ e * Do you have serious difficulty walking or climbing stairs? Answer Date of Assessment Author Status No 05/10/2020 5:51 PM VOTING MACHINE REPAIRER Mensing, Savita Terrell NP Active * Do [...] documented as of this encounter Care Teams Alarm Investigator Relationship Specialty [place] [address] [facility] [address] [place] [address] PCP - General 12/12/16 documented as of this encounter
--- OUTSIDE RECORDS SUMMARY | 2025-01-02 01:32 | XMS_ITS | Encounter Summary ---
Author Organization [facility] Address [address] [place] [address] Care Team Providers Care Metal Filer Name Role Phone Ulisses Minor MD Primary Care Provide r Encounter Details Date Type Department Care Team (Late st Contact Info) Description 09/19/2023 [employer] Message [facility] [phone] [place] [address] Liliya James, TRANSLATIONAL SPECIALIST [address] [place] [address] Antibiotic Social History Tobacco Use [...] Assessment Author Status No 05/10/2020 5:51 PM EQUIPMENT HIRE MANAGER Activ e * RETIRED Are you blind or do you have serious difficulty seeing, even when wearing glasses? Answer Date of Assessment Author Status No 05/10/2020 5:51 PM EQUIPMENT HIRE MANAGER Activ e * Do you have serious difficulty walking or climbing stairs? Answer Date of Assessment Author Status No 05/10/2020 5:51 PM Savita Martínez NP Active * Do you have difficulty dressing or bathing? Answer Date of Assessment Author Status No 05/10/2020 5:51 PM Savita Martínez NP Active * Because of a physical, mental, or emotional condition, do you have difficulty doing errands alone such as visiting a doctor's office or shopping? Answer Date of Assessment Author Status No 05/10/2020 5:51 PM Savita Martínez NP Active * Over the past 2 [...] documented as of this encounter Care Teams Metal Filer Relationship Specialty [place] [address] [place] [address] PCP - General 12/12/16 documented as of this encounter
--- OUTSIDE RECORDS SUMMARY | 2025-01-02 01:32 | XMS_ITS | Encounter Summary ---
Author Organization [facility] Address [address] [facility] [place] [address] Care Team Providers Care School Bus Mechanic Name Role Phone Ulisses Minor MD Primary Care Provide r Encounter Details Date Type Department Care Team (Late st Contact Info) Description 05/12/2011 [facility] [address] [place] [place] [address] Social History Tobacco Use Types Packs/Day Years Used Date Smoking Tobacco: Never Smokeless Tobacco: Never Alcohol Use Standard Drinks/Week Comments Yes 0 (1 standard drink = 0.6 oz pur e alcohol) social/rare Comments No Sex and Gender Information Value Date Recorded Sex Assigned at Not on file Legal Sex Female 12:13 PM FLANGER Gender Identity Not on file Sexual Orientation Not on file documented as of this encounter Plan of Treatment Not on file documented as of this encounter Visit Diagnoses Not on filedocumented in this encounter Care Teams School Bus Mechanic Relationship Specialty Start Date End Date Ulisses Minor MD [facility] [place] [address] PCP - General Pediatrics 01/01/12 documented as of this encounter
--- OUTSIDE RECORDS SUMMARY | 2025-01-02 01:32 | XMS_ITS | Encounter Summary ---
Author Organization [facility] Address [address] [place] [address] Care Team Providers Care Sales Department Clerk Name Role Phone Ulisses Minor MD Primary Care Provide r Ulisses Minor MD Primary Care Provide r Ulisses Minor MD Primary Care Provide r Ulisses Minor MD Primary Care Provide r Encounter Details Date Type Department Care Team (Late st Contact Info) Description 05/23/[address] [facility] Conversion , Generic ConversionMD Social History [...] - Seasonal 07/13/2023 07/13/2023 024 12:32 AM TROPHY ASSEMBLER MRSA 10/14/2024 10/14/2024 documented as of this encounter Care Teams Sales Department Clerk Relationship Specialty [place] [address] [place] [address] PCP - General 12/12/16 [place] [address] [place] [address] PCP - General 12/07/16 12/11/16 [place] [address] [place] [address] PCP - General 08/22/16 12/06/16 [place] [address] [place] [address] PCP - General 07/17/16 08/21/16 documented as of this encounter
--- OUTSIDE RECORDS SUMMARY | 2025-01-02 01:32 | XMS_ITS | Encounter Summary ---
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 Answer Date of Assessment Author Status No 05/10/2020 5:51 PM CITY MANAGER Activ e * Do you have serious difficulty walking or climbing stairs? Answer Date of Assessment Author Status No 05/10/2020 5:51 PM CITY MANAGER Savita Alvarado NP Active * Do you have difficulty dressing or bathing? Answer Date of Assessment Author Status No 05/10/2020 5:51 PM CITY MANAGER Savita Alvarado NP Active * Because of a physical, mental, or emotional condition, do you have difficulty doing errands alone such as visiting a doctor's office or shopping? Answer Date of Assessment Author Status No 05/10/2020 5:51 PM CITY MANAGER Savita Alvarado NP Active documented as of this encounter Mental Status * Because of a physical, mental, or emotional condition, do you have serious difficulty concentrating, remembering, or making decisions? Answer Entry Date Author Status No 05/10/2020 5:51 PM CITY MANAGER Savita Alvarado NP Active documented in this encounter Plan of Treatment Not on file documented as of this encounter Visit Diagnoses Not on filedocumented in this encounter Additional Health Concerns Infection Onset Date Last Indicated Resolved Time Influenza - Seasonal 07/13/2023 07/13/2023 024 12:32 AM CITY MANAGER MRSA 10/14/2024 10/14/2024 Assessment Noted Time PHQ-9 Depression Total Score: 0 08/13/19 22 10:52 AM CDT documented as of this encounter Care Teams Physical Scientist Relationship Specialty [place] [address] [place] [address] PCP - General 12/12/16 documented as of this encounter
--- OUTSIDE RECORDS SUMMARY | 2025-01-02 01:32 | XMS_ITS | Encounter Summary ---
Author Organization [facility] Address [address] [place] [address] Care Team Providers Care Studio Producer Name Role Phone Ulisses Minor MD Primary Care Provide r Ulisses Minor MD Primary Care Provide r Ulisses Minor MD Primary Care Provide r Ulisses Minor MD Primary Care Provide r Encounter Details Date Type Department Care Team (Late st Contact Info) Description 06/17/2012 Abstract [facility] Conversion , Generic [...] - Seasonal 07/13/2023 07/13/2023 024 12:32 AM HEAT TREATER APPRENTICE MRSA 10/14/2024 10/14/2024 documented as of this encounter Care Teams Studio Producer Relationship Specialty [place] [address] [place] [address] PCP - General 12/12/16 [place] [address] [place] [address] PCP - General 12/07/16 12/11/16 [place] [address] [place] [address] PCP - General 08/22/16 12/06/16 [place] [address] [place] [address] PCP - General 07/17/16 08/21/16 documented as of this encounter
--- OUTSIDE RECORDS SUMMARY | 2025-01-02 01:32 | XMS_ITS | Clinical Summary ---
Author Organization [facility] Address [address] [place] [address] Care Team Providers Care Buttermilk Drier Operator Name Role Phone Ulisses Minor MD [...] hours as needed for Fever. 30 tablet 2019 Active Blood Glucose Monitoring Suppl (ONE TOUCH ULTRA 2) w/Device KitIndications:T ype 2 diabetes mellitus with hyperglycemia, with long-term current use of insulin ([facility]) 1 each by Does not apply route daily. 1 kit 2021 Active Insulin Pen Needle (PEN NEEDLES) 31G X 8 MM MiscIndications: Type 2 diabetes mellitus with diabetic polyneuropathy, with long-term current use of insulin ([facility]) 1 each by Does not apply route 4 (four) times a day. 400 each 3 2021 Active triamcinolone 0.1 % cream as needed. 2021 Active albuterol sulfate HFA 108 (90 Base) MCG/ACT inhalerIndicatio ns:Acute bronchitis, unspecified organism Inhale 2 puffs into the lungs every 4 (four) hours as needed for Wheezing. 18 g 2 2022 Active fluticasone propionate (FLONASE) 50 MCG/ACT nasal sprayIndications :Nasal congestion 2 sprays by Nasal route daily. 16 g 11 2023 Active Additional Information Patient not taking.Reported on 12/24/2024 HYRIMOZ 40 MG/0.4ML Solution Auto-injector every 14 (fourteen) days. 2023 Active atorvastatin (LIPITOR) 40 MG tabletIndication s:Mixed hyperlipidemia take 1 tablet by mouth every day 90 tablet 3 2023 Active omeprazole (PRILOSEC) 20 MG capsuleIndicatio ns:Gastroesophag eal reflux disease without esophagitis take 1 capsule by mouth every day 90 capsule 3 2023 Active TOUJEO SOLOSTAR 300 UNIT/ML Solution Pen-injectorIndi cations:Type 2 diabetes mellitus with diabetic polyneuropathy, with long-term current use of insulin ([facility]/HCC) INJECT 90 UNITS INTO THE SKIN NIGHTLY AT BEDTIME. 27 mL 3 2023 Active Additional Information Patient taking differently: 70 UnitsSubcutaneous Nightly at bedtime, Reported on 12/24/2024 lisinopril (PRINIVIL) 10 MG tabletIndication s:Essential hypertension take 1 tablet by mouth every day 90 tablet 3 2023 Active Insulin Aspart (NOVOLOG IJ) Inject 3 mLs as directed. Sliding scale Active amitriptyline (ELAVIL) 25 MG tabletIndication s:Primary insomnia Take 1 tablet (25 mg total) by mouth nightly at bedtime. 90 tablet 3 2023 Active hydroxychloroqui ne (PLAQUENIL) 200 MG tabletIndication s:Rheumatoid arthritis with rheumatoid factor of right hand without organ or systems involvement ([facility]/HCC) TAKE 1 TABLET BY MOUTH TWICE A DAY 180 tablet 1 2024 Active MOUNJARO 12.5 MG/0.5ML injection 12.5 MG (0.5 ML) SUBCUTANEOUSLY WEEKLY 2024 Active naloxone (NARCAN) 4 MG/0.1ML nasal sprayIndications :Acute pain of right shoulder 1 spray by Nasal route as needed for Opioid reversal. may repeat every 2 to 3 minutes in alternating nostrils until medical assistance becomes available 1 each 08/12 Active Additional Information Patient not taking.Reported on 12/24/2024 folic acid (FOLVITE) 1 MG tablet Take 1 tablet (1 mg total) by mouth daily. 2024 Active ONETOUCH ULTRA test stripIndications :Type 2 diabetes mellitus with diabetic polyneuropathy, with long-term current use of insulin ([facility]) USE TO TEST THREE TIMES DAILY FOR DIABETES 300 strip 5 2024 Active escitalopram (LEXAPRO) 20 MG tabletIndication s:Anxiety state TAKE 1 TABLET BY MOUTH EVERY DAY 90 tablet 2024 Active triamterene-hydr oCHLOROthiazide (DYAZIDE) 37.5-25 MG capsuleIndicatio ns:Essential hypertension TAKE 1 CAPSULE BY MOUTH EVERY DAY 90 capsule 2024 Active Additional Information Patient taking differently:1 capsule OralEvery other day, Reported on 12/24/2024 levothyroxine (SYNTHROID) 88 MCG tabletIndication s:Acquired hypothyroidism TAKE 1 TABLET BY MOUTH EVERY DAY IN THE MORNING 90 tablet 2024 Active methotrexate (TREXALL) 2.5 MG tabletIndication s:Rheumatoid arthritis involving both hands with positive rheumatoid factor ([facility]) TAKE 3 TABLETS (7.5 MG TOTAL) BY MOUTH ONCE A WEEK FOR 30 DAYS. 12 tablet 1 2024 Active traMADol (ULTRAM) 50 MG tabletIndication s:Spinal stenosis of lumbar region with neurogenic claudication TAKE 1 TABLET BY MOUTH EVERY 6 HOURS NEEDED FOR CHRONIC PAIN 60 tablet 1 2024 Active sodium chloride 1 GM tabletIndication s:Hyponatremia Take 1 tablet (1 g total) by mouth 3 (three) times daily. 90 tablet 5 2024 Active cyclobenzaprine (FLEXERIL) 5 MG tablet Take 1 tablet (5 mg total) by mouth 3 (three) times daily as needed. 2024 Active HYDROcodone-acet aminophen (NORCO) 10-325 MG tablet 2024 Active HUMALOG KWIKPEN 200 UNIT/ML Solution Pen-injector INJECT 3 UNIT (0.015 ML) SUBCUTANEOUSLY BEFORE SUPPER, MAX DAILY DOSE: 15 2024 Active cyclobenzaprine (FLEXERIL) 10 MG tabletIndication s:Spinal stenosis of lumbar region with neurogenic claudication Take 1 tablet (10 mg total) by mouth 3 (three) times daily as needed. 90 tablet 3 12/23 Discontinued( Duplicate Med) traMADol (ULTRAM) 50 MG tabletIndication s:Spinal stenosis of lumbar region with neurogenic claudication TAKE 1 TABLET BY MOUTH EVERY 6 HOURS NEEDED FOR CHRONIC PAIN 60 tablet 3 12/15 Discontinued HYDROcodone-acet aminophen (NORCO) 5-325 MG tabletIndication s:Acute Pain < 7 Day Supply Take 1 tablet by mouth every 4 (four) hours as needed for Pain. Indications: Acute Pain < 7 Day Supply 40 tablet 12/23 Discontinued( Dose adjustment) guaiFENesin-code ine (GUAIFENESIN AC) 100-10 MG/5ML syrupIndications :Bronchitis Take 5 mLs by mouth every 4 (four) hours as needed for Cough. Indications: Bronchitis 240 mL 12/23 Discontinued( Therapy completed) Active Problems Problem Noted Date Diagnosed Date Infection of great toe due t o methicillin resistant Staphylococcus aureus (MRSA) 10/17/2024 Callus of foot 10/13/2024 Rheumatoid arthritis involvi ng multiple sites with positive rheumatoid factor ([facility]) 12/24/2023 Spondylolisthesis of lumbar region 06/21/2023 Other intervertebral disc degeneration, lumbar r egion 06/21/2023 Other intervertebral disc displacement, lumbar r egion 06/21/2023 Foraminal stenosis of lumbar region 06/21/2023 Spinal stenosis of lumbar re gion with neurogenic claudication 06/21/2023 Acute bilateral low back pain with left-sided sc iatica 03/03/2022 Psoriatic arthritis ([facility]) 06/20/2021 COVID-19 05/10/2020 S/P cervical spinal fusion 11/05/2018 Right arm pain 11/05/2018 Breast mass in female 01/02/2018 Hemangioma of liver 01/02/2018 Overview (08/13/2020): Overview: Added automatically from request for surgery [id number] Added automatically from request for surgery [id number] Liver mass 01/02/2018 Cervical radiculopathy 09/27/2016 Foraminal stenosis of cervical region 09/27/2016 Cervical osteophyte 06/14/2016 Sciatica 09/28/2014 Overview (09/19/2023): Sciatica Sciatica Allergic rhinitis due to pollen 09/15/2014 Overview (09/19/2023): Allergic rhinitis due to pollen Allergic rhinitis due to pollen Mixed hyperlipidemia 06/18/2013 Overview (06/06/2018): Mixed hyperlipidemia Benign essential hypertension 01/14/2012 Overview (09/19/2023): Benign essential hypertension Benign essential hypertension GERD (gastroesophageal reflux disease) 1 Hypothyroidism (acquired) 03/06/2011 Overview (09/19/2023): Hypothyroidism, unspecified Hypothyroidism, unspecified Type 2 diabetes mellitus wit h hyperglycemia, with long-term current use of insulin ([facility]) 03/06/2011 Overview (05/30/2018): Type 2 diabetes mellitus without complications Morbid obesity 03/06/2011 Hiatal hernia 03/06/2011 Resolved Problems Problem Noted Date Diagnosed Date Resolved Date Blister of toe of left foot, initial encounter 10/13/2024 12/28/2024 Radiculopathy, lumbar region 06/21/2023 12/28/2024 Myofascial pain 04/25/2017 12/28/2024 Muscle spasm 06/14/2016 12/28/2024 Anxiety state 10/19/2013 12/28/2024 Overview (09/19/2023): Anxiety state, unspecified Anxiety state, unspecified HTN (hypertension) 03/06/2011 High blood cholesterol 03/06/201112/23 DM (diabetes mellitus) ([facility]) 03/06/2011 12/28/2024 Encounters Date Type Department Care Team Description 12/31/2024 Telephone [facility] [address] [place] [address] Gerda Minor FNP Orders 12/31/2024 Telephone [facility] [address] [place] [address] Gerda Minor FNP Referral 12/24/2024 1:00 PM CDT Office Visit [facility] [address] [place] [address] Gerda Minor FNP Annual (Wellness. ) 12/24/2024 Travel 12/18/2024 Scan [facility] SRVCS Scanned, [facility] (SCAN) 12/18/2024 Telephone [facility] [address] [place] [address] Gerda Minor FNP Question 12/18/2024 Telephone [facility] [address] [place] [address] Gerda Minor FNP Other (SODIUM LEVEL) 10/31/2024 9:55 AM CDT - 10/31/2024 11:59 PM CDT Hospital Encounter [facility] [address] [place], [place] [id number] Dorian Quinonez MD Discharge Disposition: Home or Self Care (Routine Discharge) 10/31/2024 Travel 10/30/2024 Scan [facility] SRVCS Scanned, [facility] 10/27/2024 Scan [facility] SRVCS Scanned, [facility] (SCAN) 10/22/2024 1:42 PM CDT - 10/22/2024 11:59 PM CDT Hospital Encounter [facility] [address] [place] [address] Dorian Quinonez MD Discharge Disposition: Home or Self Care (Routine Discharge) 10/22/2024 Travel 10/17/2024 Results Follow-Up [facility] [address] [place] [address] Ruthann Villatoro MD CULTURE, TISSUE W/GRAM STAIN 10/14/2024 12:40 PM CDT - 10/14/2024 11:59 PM CDT Hospital Encounter [facility] [address] [place] [address] Ruthann Villatoro MD Discharge Disposition: Home or Self Care (Routine Discharge) 10/14/2024 Travel 10/13/2024 10:30 AM CDT Office Visit [facility] General Surgery [facility] [address], [address] [place] [address] Pedro Moore MD Blisters (On toe- been there a while- it comes and goes- was infected so PCP started her on Keflex last Sunday) 10/13/2024 Travel 10/08/2024 [facility] Documentation [facility] [address] [place] [address] Gerda Minor, POSITION CLASSIFICATION SPECIALIST 10/08/2024 Telephone [facility] General Surgery [address], [address] [place] [address] Pedro Moore MD Appointment Request from Last 3 Months Immunizations Immunization Administration Dates Next Due FLUCELVAX (ccIIV3, TRIVALENT, 0.5mL) 03/17/2024 Fluzone 6 Months+ Quad (0.5 mL Prefilled Syringe) 03/03/2022,03/10/2021 Hepatitis B 12/01/2003,06/16/2003,05/12/2003 Influenza (Generic) 02/09/2011 Influenza Adult (Generic) 03/21/2023,,02/03/2020,2018,02/20/2018,02/19/2018,02/19/2017,0 02/18/2017,02/23/2016,02/22/2015, 014 MODERNA COVID-19 (12+) MRNA, LNP-S, PF, 100 MCG/ 0.5 ML DOSE 08/07/2020,07/10/2020 MODERNA COVID-19 (CLINICAL NURSE REVIEWER EMANI ABY), MRNA, LNP-S, PF, 50 MCG/ [...] Heart Attack Paternal Grandmother Diabetes Sister 1 Early Sister 1 Hypertension Sister 1 Heart Attack [...] Sign Reading Time Taken Comments Blood Pressure 130/70 12/24/2024 12:49 PM CDT Pulse 80 12/24/2024 12:49 PM CDT Temperature 37.1 C (98.8 F) 12/24/2024 12:49 PM CDT Respiratory Rate 18 12/24/2024 12:49 PM CDT Oxygen Saturation 100% 12/24/2024 12:49 PM CDT Inhaled Oxygen Concentration - - Weight 109.8 kg (242 lb) 12/24/2024 12:49 PM CDT Height 165.1 cm (5' 5) 12/24/2024 12:49 PM CDT Body Mass Index 40.27 12/24/2024 12:49 PM CDT Plan of Treatment Health Maintenance Due Date Last Done Comments Kidney Health Evaluation 1966 Pneumococcal Vaccine: 50+ Years (2 of 2 - PCV) 05/11/2012 05/11/2011 Zoster Vaccines (1 of 2) 2016 COVID-19 Vaccine ( - season) 2024 04/19/2021, 08/07/2020, 07/10/2020 Hemoglobin A1C 06/25/2024 12/24/2023, 06/28, 03/09/2023, Additional history exists Mammogram Screening 12/27/2024 12/28/2023, 11/25/2021, 09/20/2020, Additional history exists Diabetes: Retinopathy Eye Exam 02/27/2025 02/28/2024, 02/16/2022, 02/17/2021, Additional history exists Lipid Panel 10/27/2025 10/27/2024, 06/29, 12/29/2022, Additional history exists Annual Physical 12/24/2025 12/24/2024, 12/24/2023 Colorectal Cancer Screening FIT-DNA (3 Years) 01/08/2026 01/08/2023, 01/08/2023 DTaP, Tdap and Td Vaccines (4 - Td or Tdap) 08/11/2034 08/11/2024, 11/21/2018, 05/17/2014 Hepatitis B Vaccines Completed 12/01/2003, 06/16/2003, 05/12/2003 Hepatitis C Completed 09/06/2023, 06/20/2021 PHQ-2 (Physician [place]) Completed 12/24/2024 Meningococcal B Vaccine Aged Out No l onger eligible based on patient's age to complete this topic Meningococcal Vaccine Aged Out No leonardo apolonia eligible based on patient's age to complete this topic RSV Immunizations Under 20 Months Aged Out No longer eligible based on patient's age to complete this topic Procedures Procedure Name Priority Date/Time Associated Diagnosis Comments COMPREHENSIVE METABOLIC PANEL Routine 12/26/2024 10:54 AM CDT Hyponatremia IRON SAT PANEL (IRON,IBC,%SAT) Routine 12/26/2024 10:52 AM CDT History of anemia VITAMIN B12 / FOLATE Routine 12/26/2024 10:52 AM CDT History of anemia BASIC METABOLIC PANEL Routine 12/22/2024 9:08 AM CDT Benign essential hypertension OUTSIDE LAB (SCAN ORDER) 12/18/2024 LIPID PANEL Routine 10/27/2024 8:56 AM CDT Dyslipidemia OUTSIDE LAB (SCAN ORDER) 10/27/2024 CULTURE, TISSUE W/GRAM STAIN Routine 10/14/2024 1:22 [...] Relevant to Health Maintenance Results * (ABNORMAL) COMPREHENSIVE METABOLIC PANEL (12/26/2024 10:54 AM CDT) GLUCOSE 107(H) 65 - 99 mg/dL [facility] Comment: Fasting reference interval For someone without known diabetes, a glucose value between 100 and 125 mg/dL is consistent with prediabetes and should be confirmed with a follow-up test. BUN 16 7 - 25 mg/dL [facility] CREATININE S/P/B 1.11(H) 0.50 - 1.03 mg/dL [facility] GFR ESTIMATE 58(L) > OR = 60 mL/min/1. 73m2 [facility] BUN CREATININE RATIO 14 6 - 22 (calc) [facility] SODIUM S/P/B 136 135 - 146 mmol/L [facility] POTASSIUM S/P/B 4.3 3.5 - 5.3 mmol/L [facility] CHLORIDE S/P/B 101 98 - 110 mmol/L [facility] CO2 28 20 - 32 mmol/L [facility] CALCIUM S/P/B 9.0 8.6 - 10.4 mg/dL [facility] TOTAL PROTEIN S/P/B 6.1 6.1 - 8.1 g/dL [facility] ALBUMIN S/P/B 3.8 3.6 - 5.1 g/dL [facility] GLOBULIN 2.3 1.9 - 3.7 g/dL (calc) [facility] ALBUMIN/GLOBULIN RATIO 1.7 1.0 - 2.5 (calc) [facility] BILIRUBIN TOTAL S/P/B 0.4 0.2 - 1.2 mg/dL [facility] ALKALINE PHOSPHATASE S/P/B 32(L) 37 - 153 U/L [facility] AST 29 10 - 35 U/L [facility] ALT 31(H) 6 - 29 U/L [facility] 12/26/2024 10:5 4 AM CDT 12/26/2024 10:55 AM CDT Narrative Resulting Agency Comment Performing Organization Information: Site ID: [place] Name: [employer] [facility] Address: [address] [address] Director: Gladys Carter MD Gerda [facility] Final Resul t ADRIEN ULRICH [employer] [facility] [address] [address] [place] [address], * VITAMIN B12 / FOLATE (12/26/2024 10:52 AM CDT) VITAMIN B12 S/P/B 523 200 - 1,100 pg/mL [facility] FOLATE >24.0 ng/mL [facility] Comment: Reference Range Low: <3.4 Borderline: 3.4-5.4 Normal: >5.4 12/26/2024 10:5 2 AM CDT 12/26/2024 10:53 AM CDT Narrative Resulting Agency Comment Performing Organization Information: Site ID: [place] [facility] Address: [address] [place] [phone] Director: Gladys Carter MD Gerda [facility] Final Resul t Performing Organization Address [facility] Phone Number [facility] [employer] [address] [address], * IRON SAT PANEL (IRON,IBC,%SAT) (12/26/2024 10:52 AM CDT) IRON 66 45 - 160 mcg/dL [facility] IRON BINDING CAPACITY 262 250 - 450 mcg/dL (calc) [facility] % IRON SATURATION 25 16 - 45 % (calc) [facility] 12/26/2024 10:5 2 AM CDT 12/26/2024 10:53 AM CDT Narrative Resulting Agency Comment Performing Organization Information: Site ID: [place] [facility] Address: [address] [place] [phone] Director: Gladys Carter MD Gerda Minor [facility] Final Resul t Performing Organization Address [facility] Phone Number [facility] [employer] [address] [address], * (ABNORMAL) BASIC METABOLIC PANEL (12/22/2024 9:08 AM CDT) GLUCOSE 111(H) 65 - 99 mg/dL [facility] Comment: Fasting reference interval For someone without known diabetes, a glucose value between 100 and 125 mg/dL is consistent with prediabetes and should be confirmed with a follow-up test. BUN 20 7 - 25 mg/dL [facility] CREATININE S/P/B 1.02 0.50 - 1.03 mg/dL [facility] GFR ESTIMATE 64 > OR = 60 mL/min/1. 73m2 [facility] BUN CREATININE RATIO SEE NOTE: (calc) [employer] [facility] Comment: Not Reported: BUN and Creatinine are within reference range. SODIUM S/P/B 135 135 - 146 mmol/L [employer] [facility] POTASSIUM S/P/B 4.2 3.5 - 5.3 mmol/L [facility] CHLORIDE S/P/B 100 98 - 110 mmol/L [facility] CO2 27 20 - 32 mmol/L [facility] CALCIUM S/P/B 8.9 8.6 - 10.4 mg/dL [facility] 12/22/2024 9:08 AM CDT 12/22/2024 9:08 AM CDT Narrative Resulting Agency Comment Performing Organization Information: Site ID: [place] [facility] Address: [address] [place] [address] Director: Gladys Carter MD Gerda [facility] Final Resul t [facility] [address] [place] [address], * OUTSIDE LAB (SCAN ORDER) (12/18/2024) Only the most recent of2 resultswithin the time period is included. 12/18/2024 [facility] Scanned SCANNING Final Resu lt * LIPID PANEL (10/27/2024 8:56 AM CDT) CHOLESTEROL 150 <200 mg/dL [facility] HDL 83 > OR = 50 mg/dL [facility] TRIGLYCERIDES 78 <150 mg/dL [facility] LDL (CALCULATED) 51 mg/dL (calc) [facility] Comment: Reference range: <100 Desirable range <100 mg/dL for primary prevention; <70 mg/dL for patients with CHD or diabetic patients with > or = 2 CHD risk factors. LDL-C is now calculated using the Tracy calculation, which is a validated novel method providing better accuracy than the Friedewald equation in the estimation of LDL-C. Michael SS et al. MANE. 2013;310(14): 0880-3409 (http://education.Room 77/faq/UGS409) CHOL/HDL RATIO 1.8 <5.0 (calc) [facility] NON HDL CHOLESTEROL 67 <130 mg/dL (calc) [facility] Comment: For patients with diabetes plus 1 major ASCVD risk factor, treating to a non-HDL-C goal of <100 mg/dL (LDL-C of <70 mg/dL) is considered a therapeutic option. 10/27/2024 8:56 AM CDT 10/27/2024 8:56 AM CDT Narrative [facility] - 10/28/2024 5:05 AM CDT FASTING:YES FASTING: YES Resulting Agency Comment Performing Organization Information: Site ID: [place] Name: [facility] Address: [address] [place] [phone] Director: Gladys Carter MD Gerda [facility] Final Resul t [facility] [id number] [place] [id number] * (ABNORMAL) CULTURE, TISSUE W/GRAM STAIN (10/14/2024 1:22 PM CDT) SPEC DESCRIPTION TOE,LEFT 10/14/2024 1:27 PM CDT [facility] SPECIAL REQUESTS NO SPECIAL REQUEST 10/14/2024 1:27 PM CDT [facility] GRAM STAIN RESULT NO WHITE BLOOD CELLS SEEN 10/14/2024 9:50 PM CDT [facility] GRAM STAIN RESULT NO ORGANISMS SEEN 10/14/2024 9:50 PM CDT [facility] CULTURE RESULT SPARSE GROWTH OF METHICILLIN RESISTANT STAPHYLOCOCCUS AUREUS FOLLOW ISOLATION PROTOCOL. (A) 10/17/2024 7:58 AM CDT [facility] STRUCTURE OF TOE OF LEFT [...] ORDER YELITZA Final Result Performing Organization Address City/[facility]/ZIP Co de Phone Number [facility] [address] [place] [address], [place] [phone] [facility] [address] [place] [address], [place] [phone] * DIABETIC RETINOPATHY EXAM (POSITIVE) (02/28/2024) [facility] Scanned SCANNING Final Resu lt Performing Organization Address City/[facility]/ZIP Co de Phone Number [facility] * MG SCREENING W ARACELI MEI [...] change from the prior exam. Gerda Minor POSITION CLASSIFICATION SPECIALIST MAMMO Final Resul t * A1C (BACK OFFICE) (12/24/2023) HGB A1C 7.4 % [facility] [address] [place] 12/24/2023 Gerda Minor [facility] Final Resul t [facility] [address] [place] [address] [address] [place] [address], * HEPATITIS C ANTIBODY (09/06/2023 3:19 PM CDT) HEPATITIS C AB NON-REACTI VE NON-REACTI VE 09/06/2023 8:54 PM CDT [facility] 09/06/2023 3:19 PM CDT Rosangela Clayton MD LABORATORY Final Result [facility] [address] [place] [address], * COLOGUARD (EXACT SCIENCE) (01/08/2023 11:30 AM CDT) COLOGUARD RESULT Negative Negative [employer] (CLIA #:[id number]) Comment: NEGATIVE TEST RESULT. A negative Cologuard [...] Amor et al, N Engl J Med 2014;370(14):3305-2192) The normal value (reference range) for this assay is negative. COLOGUARD RE-SCREENING RECOMMENDATION: Periodic colorectal cancer screening is an important part of preventive healthcare for asymptomatic individuals at average risk for colorectal cancer. Following a negative Cologuard result, the [place] [employer] and U.S. Multi-Society Task Force screening guidelines recommend a Cologuard re-screening interval of 3 years. References: [place] [employer] Guideline for Colorectal Cancer Screening: https://www.cancer.org/cancer/cysug-csgicn-xzsais/lgbkkjdku-wqfjuvwvh-ttpvryf/ac s-rec ommendations.html.; Andriy DK, Segundo CR, Veronica ValienteK, Colorectal Cancer Screening: Recommendations for Physicians and Patients from the U.S. Multi-Society Task Force on Colorectal Cancer Screening , Am J Gastroenterology 2017; 112:0024-9403. TEST DESCRIPTION: Composite algorithmic analysis of stool [...] (Eusebia Carrion al, N Engl J Med 2014;370(14):7593-1933.) Cologuard may produce a false negative or false positive result (no colorectal cancer or precancerous polyp present at colonoscopy follow up). A negative Cologuard test result does not guarantee the absence of CRC or advanced adenoma (pre-cancer). The current Cologuard screening interval is every 3 years. ([employer] Society and U.S. Multi-Society Task Force). Cologuard performance data in a 10,000 patient pivotal study using colonoscopy as the reference method can be accessed at the following location: [email or web address] labs/results. Additional description of the Cologuard test process, warnings and precautions can be found at [email or web address].com. STOOL STOOL SPECIMEN / Unknown 01/08/2023 11:30 AM CDT 01/09/2023 9:49 PM CDT Gerda MORALEZP BODY FLUIDS AND STOOLS PITER WATKINS Final Result [employer] (Vee[employer] [address] LAB) [address] [place] [address], [employer] (CLIA #:[id number]) [address] [place] [address] from Last 3 Months or Most Recently Relevant to Health Maintenance Additional Health Concerns Infection Onset Date Last Indicated MRSA 10/14/2024 10/14/[address] [place] [address] [facility] Advance Directives * Full Code (Latest Code Status on File) Date Activated Date Inactivated Comments 05/10/2020 6:13 PM 05/11/2020 3:54 PM Care Teams Buttermilk Drier Operator Relationship Specialty [place] [address] [place] [address] PCP - General 12/12/16
--- OUTSIDE RECORDS SUMMARY | 2025-01-02 01:32 | XMS_ITS | Encounter Summary ---
Author Organization [facility] Address [address] [place] [address] Care Team Providers Care Resource Coordinator Name Role Phone Ulisses Minor MD Primary Care Provide r Reason for Referral * Consultation (Urgent) - New Request Specialty Diagnoses / Procedures Referred By Sonu pierson Referred To Contact NEUROLOGY Diagnoses Memory loss Dizziness Procedures OFFICE/OUTPATIENT NEW LOW MDM 30-44 MINUTES OFFICE/OUTPT VISIT,NEW,LEVL IV OFFICE/OUTPT VISIT,NEW,LEVL V OFFICE/OUTPT VISIT,EST,LEVL III OFFICE/OUTPT VISIT,EST,LEVL IV OFFICE/OUTPT VISIT,EST,LEVL V Lukas Minor FNP [address] [address] Phone: tel: fax: Referral ID Status Reason Start Date Expiration Date Visits Requested Visits Authorized [id number] New Request Specialty Services 01/01/2025 02/01/2026 1 1 Scheduling Instructions Referral Request Task: Response: Call/Mychart PATIENT CALLING SHE HASN'T HEARD ANYTHING ON REFERRAL. Which clinic are we referring patient to: (Clinic Name) [facility] Specialist Full Name: N/A Type of Specialist: NEUROLOGIST Reason for Referral: BALANCE AND MEMORY ISSUES Appointment Date if Already Scheduled: Please refer to Dr Mildred Haynes Reason for Visit * Reason Onset Date Comments Referral 12/31/2024 Encounter Details Date Type Department Care Team (Late st Contact Info) Description 12/31/[address] [facility] [address] [address] [place] [phone] MinorLukas mistry, [facility] [address] 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 Answer Date of Assessment Author Status No 05/10/2020 5:51 PM CENTRIFUGAL CASTING MACHINE TENDER Activ e * Do you have serious difficulty walking or climbing stairs? Answer Date of Assessment Author Status No 05/10/2020 5:51 PM CENTRIFUGAL CASTING MACHINE TENDER Savita Alvarado INSOLE STIFFENER Active * Do you have difficulty dressing or bathing? Answer Date of Assessment Author Status No 05/10/2020 5:51 PM CENTRIFUGAL CASTING MACHINE TENDER MensingSavita R , INSOLE STIFFENER Active * Because of a physical, mental, or emotional condition, do you have difficulty doing errands alone such as visiting a doctor's office or shopping? Answer Date of Assessment Author Status No 05/10/2020 5:51 PM CENTRIFUGAL CASTING MACHINE TENDER MensingSavita R , INSOLE STIFFENER Active documented as of this encounter Mental Status * Because of a physical, mental, or emotional condition, do you have serious difficulty concentrating, remembering, or making decisions? Answer Entry Date Author Status No 05/10/2020 5:51 PM CENTRIFUGAL CASTING MACHINE TENDER MensingSavita R , INSOLE STIFFENER Active documented in this encounter Progress Notes * Corinne Gutierrez RN - 01/01/2025 3:07 PM CDT Left message for pt that referral was entered * Jessica He - 12/31/2024 3:43 PM CDT Referral Request Task: Response: Call/Mychart PATIENT CALLING SHE HASN'T HEARD ANYTHING ON REFERRAL. Which clinic are we referring patient to: (Clinic Name) [facility] Specialist Full Name: N/A Type of Specialist: NEUROLOGIST Reason for Referral: BALANCE AND MEMORY ISSUES Appointment Date if Already Scheduled: N/A Clinic Phone: N/A Clinic Fax Number: documented in this encounter Plan of Treatment Scheduled Referrals Name Type Priority Associated Diagnoses Orde r Schedule Ambulatory referral to Neurology (OTHER) Referral Routine Memory loss Dizziness Ordered: 01/01/2025 documented as of this encounter Visit Diagnoses Diagnosis Memory loss- Primary Dizziness Dizziness and giddiness documented in this encounter Additional Health Concerns Infection Onset Date Last Indicated Resolved Time 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 [address] [place] [address] PCP - General 12/12/16 documented as of this encounter
--- OUTSIDE RECORDS SUMMARY | 2025-01-02 01:32 | XMS_ITS | Clinical Summary ---
Author Organization [facility] Address [address], [facility] 1 [place] [address] Phone Care Team Providers Care Foreign Agent Name Role Phone Ulisses Minor MD Primary Care Provider + Micky Andino DO Unavailable [phone] Provider, Unknown Unavailable Unavailable Allergies Active [...] age to complete this topic [place] [address] [facility] [place] [address] Care Teams Foreign Agent Relationship Specialty Start Date End Date Ulisses Minor MD PCP - General Internal Medicine 12/28/17 Micky Andino DO Consulting Physician Oncology 12/28/17 Provider, Unknown UNKNOWN 01/15/18
--- OUTSIDE RECORDS SUMMARY | 2025-01-02 01:32 | XMS_ITS | Encounter Summary ---
Author Organization [facility] Address [address] [place] [address] Care Team Providers Care Boot Trimmer Name Role Phone Ulisses Minor MD Primary Care Provide r Encounter Details Date Type Department Care Team (Late st Contact Info) Description 05/11/2017 Abstract [facility] CONVERSION [address] [place] [address] , Generic ConversionMD Social History Tobacco Use [...] - Seasonal 07/13/2023 07/13/2023 024 12:32 AM NUTRITION TECH MRSA 10/14/2024 10/14/2024 documented as of this encounter Care Teams Boot Trimmer Relationship Specialty [place] [address] [place] [address] PCP - General 12/12/16 documented as of this encounter
[2025-01-02] MEDS: VANCOMYCIN 1,750 MG/NS 500 ML 1,750 MG/500 ML BAG 250 MG IVPB (11:00)
[2025-01-02] MEDS: ACETAMINOPHEN 500 MG TABLET 1000 MG PO (11:10)
[2025-01-02] MEDS: LACTATED RINGERS 1,000 ML 30 ML IV CONT ×2 (11:10→13:41)
[2025-01-02] MEDS: KETOROLAC 15 MG/ML VIAL (*BKC) IV PUSH ×2 (11:10→13:20)
--- NOTE | 2025-01-02 11:24 | P.PNAN_ITS ---
Anes - Initial Pre Proc Eval Procedure: Operation Date: 01/02/25 12:00 Proposed Procedures p Right Shoulder Arthroscopy with Rotator Cuff Repair - Silver Kaplan MD Date/Time: 01/02/25 11:24 Surgeon: Silver Kaplan MD Pre Op Diagnosis: Right Shoulder Pain Patient Data Age: 59 Gender: F Height: 1.63 m Weight: 108.2 kg Allergies Allergy/AdvReac Type Severity Reaction Status Date / Time clarithromycin AdvReac Intermediate Gastrointestinal Verified 12/24/24 12:43 Upset codeine AdvReac Intermediate Gastrointestinal Verified 12/24/24 12:43 Upset metformin AdvReac Intermediate Gastrointestinal Verified 12/24/24 12:43 Upset Home Medications ?Medication ?Instructions ?Recorded ?Confirmed ?Type amitriptyline 10 mg tablet 10 mg PO HS 07/26/19 12/17/24 History atorvastatin 40 mg tablet 40 mg PO DAILY 07/26/19 12/17/24 History escitalopram oxalate 20 mg tablet 20 mg PO DAILY 07/26/19 12/17/24 History loratadine 10 mg capsule 10 mg PO DAILY #30 caps 07/26/19 12/17/24 Rx omeprazole 20 mg capsule,delayed 20 mg PO DAILY 07/26/19 12/17/24 History release quinapril 10 mg tablet 10 mg PO DAILY 07/26/19 12/17/24 History triamterene 37.5 1 cap PO DAILY 07/26/19 12/17/24 History mg-hydrochlorothiazide 25 mg capsule ibuprofen 800 mg tablet 800 mg PO TID PRN pain #15 tabs 07/13/22 12/17/24 Rx cyclobenzaprine 10 mg tablet 10 mg PO BID PRN muscle spasm #14 09/22/24 12/17/24 Rx tabs insulin glargine U-300 conc 300 40 unit subcut HS 10/31/24 12/17/24 History unit/mL (1.5 mL) subcutaneous pen (Toujeo SoloStar U-300 Insulin) insulin lispro 200 unit/mL (3 mL) 3 unit (0.015 mL) subcut .before 10/31/24 12/17/24 Rx subcutaneous pen (Humalog KwikPen supper #15 mL U-200 Insulin) levothyroxine 88 mcg tablet 88 mcg PO DAILY 10/31/24 12/17/24 History tirzepatide 15 mg/0.5 mL 15 mg (0.5 mL) subcut WEEKLY #6 mL 10/31/24 12/17/24 Rx subcutaneous pen injector (Jin) blood sugar diagnostic (Accu-Chek #400 ea 11/07/24 12/17/24 Rx Guide test strips) blood-glucose meter (Accu-Chek #1 ea 12/04/24 12/17/24 Rx Guide Me Glucose Meter) sodium chloride 1 gram tablet 1,000 mg PO TID 12/24/24 12/24/24 History Laboratory Tests 01/02/25 10:53 POC Capillary Glucose 98 mg/dl (65-105) Patient hx anesthesia problems: post op nausea/vomiting Family hx anesthesia problems: none Results Review: All pre-operative results and documents have been reviewed as part of the pre- operative evaluation. [facility] Past Medical History Medical History Diabetes Hypertension Family History Family History Sibling Diabetes mellitus Mother Hypertension Father Family history of malignant neoplasm Social History Social History Smoking status: Never smoker Alcohol intake: current Substance use: never Do You Feel Safe in your Home?: Yes Lack of Transportation: No Lack of Food: Never True Current Housing: I Have Housing Concerned About Future Housing: No Difficulty Paying Gas/Electric Bills: No Difficulty Paying for Meds: No Currently Unemployed: No Education: Trade/Vocational Certificate Difficulty w/ Childcare or Family Care: No Living arrangements: with family Gender identity (if verbalized by the patient): Female Spiritual care concerns: No Anes - Eval Final PreProcedure Day of Procedure 01/02/25 11:24 Patient weight: morbidly obese Heart: regular rate and rhythm Lungs: clear to auscultation Airway: Mallampati scale class II Neurological: alert and oriented Last oral intake: >/= 8 hours ASA classification: III Emergent: no Anesthetic plan: proceed Anesthesia type and monitoring: general ETT and standard monitoring Results Review: All pre-operative results and documents have been reviewed as part of the pre- operative evaluation. Informed Consent: The patient's anesthetic plan and its attendant risks and benefits were discussed with the patient/family/POA. Questions were solicited and answers provided to the satisfaction of the patient/family/POA.
[2025-01-02] MEDS: SCOPOLAMINE 1 MG PATCH 1 PATCH TRANSDERM (11:33)
--- NOTE | 2025-01-02 12:07 | P.HP_ITS ---
H&P: HPI History of Present Illness Date/Time: 01/02/25 12:07 Chief Complaint: RT Shoulder Pain with diagnosis of RCT Narrative: Fell weeks ago with RT Shoulder Pain, history of RCR in Past. No pain prior to fall. [facility] Past Medical History Medical History Diabetes Hypertension Family History Family History Sibling Diabetes mellitus Mother Hypertension Father Family history of malignant neoplasm Social History Social History Smoking status: Never smoker Alcohol intake: current Substance use: never Do You Feel Safe in your Home?: Yes Lack of Transportation: No Lack of Food: Never True Current Housing: I Have Housing Concerned About Future Housing: No Difficulty Paying Gas/Electric Bills: No Difficulty Paying for Meds: No Currently Unemployed: No Education: Trade/Vocational Certificate Difficulty w/ Childcare or Family Care: No Living arrangements: with family Gender identity (if verbalized by the patient): Female Spiritual care concerns: No Meds Home Medications and Allergies Home Medications ?Medication ?Instructions ?Recorded ?Confirmed ?Type amitriptyline 10 mg tablet 10 mg PO HS 07/26/19 12/17/24 History atorvastatin 40 mg tablet 40 mg PO DAILY 07/26/19 12/17/24 History escitalopram oxalate 20 mg tablet 20 mg PO DAILY 07/26/19 12/17/24 History loratadine 10 mg capsule 10 mg PO DAILY #30 caps 07/26/19 12/17/24 Rx omeprazole 20 mg capsule,delayed 20 mg PO DAILY 07/26/19 12/17/24 History release quinapril 10 mg tablet 10 mg PO DAILY 07/26/19 12/17/24 History triamterene 37.5 1 cap PO DAILY 07/26/19 12/17/24 History mg-hydrochlorothiazide 25 mg capsule ibuprofen 800 mg tablet 800 mg PO TID PRN pain #15 tabs 07/13/22 12/17/24 Rx cyclobenzaprine 10 mg tablet 10 mg PO BID PRN muscle spasm #14 09/22/24 12/17/24 Rx tabs insulin glargine U-300 conc 300 40 unit subcut HS 10/31/24 12/17/24 History unit/mL (1.5 mL) subcutaneous pen (Toujeo SoloStar U-300 Insulin) insulin lispro 200 unit/mL (3 mL) 3 unit (0.015 mL) subcut .before 10/31/24 12/17/24 Rx subcutaneous pen (Humalog KwikPen supper #15 mL U-200 Insulin) levothyroxine 88 mcg tablet 88 mcg PO DAILY 10/31/24 12/17/24 History tirzepatide 15 mg/0.5 mL 15 mg (0.5 mL) subcut WEEKLY #6 mL 10/31/24 12/17/24 Rx subcutaneous pen injector (Jin) blood sugar diagnostic (Accu-Chek #400 ea 11/07/24 12/17/24 Rx Guide test strips) blood-glucose meter (Accu-Chek #1 ea 12/04/24 12/17/24 Rx Guide Me Glucose Meter) sodium chloride 1 gram tablet 1,000 mg PO TID 12/24/24 12/24/24 History Allergies Allergy/AdvReac Type Severity Reaction Status Date / Time clarithromycin AdvReac Intermediate Gastrointestinal Verified 12/24/24 12:43 Upset codeine AdvReac Intermediate Gastrointestinal Verified 12/24/24 12:43 Upset metformin AdvReac Intermediate Gastrointestinal Verified 12/24/24 12:43 Upset Exam Narrative: RT Shoulder with pain on ROM, tenderness to palpation to anterior RT Shoulder. Assessment and Plan Assessment and plan (1) Right shoulder pain: Code(s): M25.511 - Pain in right shoulder Status: Acute Plan 59 yr old female with h/o RT Shoulder RCR with retear of RCT Plan RT Sh RCR. Risks discussed with patient and benefits of Repair. She agrees to proceed. Min probability for infection or nerve or blood vessel injury
--- NOTE | 2025-01-02 12:10 | WPDHPUPDATE1 ---
History and Physical Update Update Date/Time: 01/02/25 12:10 History and Physical has been reviewed, including an updated exam of the patient. There are NO changes in the patient's condition. Risks, benefits, and alternatives have been discussed and questions answered. Patient agrees to proceed with procedure. RT Shoulder RCR
[2025-01-02] MEDS: ceFAZolin 2 GM in SODIUM CHLORIDE 0.9% IV 50 ML 100 ML IVPB (12:16)
[2025-01-02] MEDS: LIDO 1%/EPINEPHRINE 1:100,000 20 ML VIAL INFILTRATE (13:15)
[2025-01-02] MEDS: TRIAMCINOLONE ACET INJ 40 MG/ML VIAL 80 MG IM (13:16)
--- NOTE | 2025-01-02 13:39 | W.PM.PROC2 ---
Procedure Note - Detailed Date of Procedure 01/02/25 Pre-op Diagnosis Right Shoulder Pain Post-op Diagnosis Other (1. RT Shoulder Non repairable rotator cuff tear, 2. RT shoulder subacromial bursitis) Procedure Performed Right Shoulder Diagnostic Arthroscopy Right Shoulder Subacromial debridement Surgeon Silver Kaplan MD Anesthesia General Indications 59 yr old female with remote history of Right Shoulder RC Repair, asymptomatic until recent fall on to Right upper extremity. Findings Right Rotator Cuff Tear non-repairable Description of Procedure After obtaining consent with regards to her right shoulder arthroscopy, the right shoulder was then marked in the holding area The patient was then brought to the operating room placed in the supine position at which time she underwent general anesthesia. The patient was then placed in the modified beach chair position. All bony prominences were padded. The right shoulder was then prepped and draped in the standard sterile fashion. Standard 3 arthroscopic portals were then created I then entered 1st into the glenohumeral joint space at which time I noted an intact labrum the biceps tendon with no evidence of instability and minimal to no degenerative changes noted over the glenoid or over the humeral head. I then evaluated the rotator cuff and noted that there was significant retraction to at least 1 cm medial to the labrum. This was the case all the way posteriorly and including the infraspinatus and even the teres minor. I then proceeded to grasp the edge of the rotator cuff attempting to mobilize it laterally and it was not mobile. I attempted to do a release over the inferior aspect of the rotator cuff tendon and still there was no success in mobilizing the lateral edge of the rotator cuff tendon. I then proceeded to debride further and attempt to mobilize the tendon and there was no possibility of doing this. I then proceeded to perform a subacromial debridement with an arthroscopic shaver. I then proceeded to irrigate copiously and then closed the portal sites with Monocryl suture injected with 80 mg of Kenalog and lidocaine and injected the portal sites also with lidocaine. Steri-Strips were then placed. The shoulder was then bandaged in a sterile fashion. The patient was then placed into a sling and she was transferred to the recovery room in stable condition. Estimated Blood Loss 10 Drains No Packing No Pathology None sent Complications No immediate complications Condition Stable Disposition PACU
[2025-01-02] MEDS: fentaNYL CITRATE INJ (*CRX) 100 MCG/2 ML VIAL 25 MCG IV PUSH ×6 (13:51→14:27)
== END 2025-01-02 15:50 | disposition home or self-care (01) ==
PROVIDERS: PCP Pediatrics; Visit Provider Orthopaedic Surgery
PROC: (CPT 29805; principal; 2025-01-02 12:00)
DX: S46.011A Strain of muscle(s) and tendon(s) of the rotator cuff of right shoulder, initial encounter (principal); M19.011 Primary osteoarthritis, right shoulder; M75.51 Bursitis of right shoulder; I10 Essential (primary) hypertension; E11.9 Type 2 diabetes mellitus without complications; W19.XXXA Unspecified fall, initial encounter; E66.01 Morbid (severe) obesity due to excess calories; Z68.41 Body mass index [BMI] 40.0-44.9, adult; Z79.1 Long term (current) use of non-steroidal anti-inflammatories (NSAID); Z79.4 Long term (current) use of insulin; Z79.85 Long-term (current) use of injectable non-insulin antidiabetic drugs; Z80.9 Family history of malignant neoplasm, unspecified
CPT/HCPCS: 29822; 36415; 82948; 84295; J0690; A9270; J0330; J1100; J1885; J2003; J2004; J2250; J2405; J2704; J3010; J3301; J3373; J7120

== ENCOUNTER 2025-01-02 09:39 | Outpatient (CLI) | payer BC, SELFPAY ==
--- OUTSIDE RECORDS SUMMARY | 2025-01-02 09:42 | XMS_ITS | Clinical Summary ---
Author Organization [facility] Address [address] [facility] [place] [address] Care Team Providers Care Cellar Pumper Name Role Phone Ulisses Minor MD Primary Care Provide r Source Comments [facility],non-owned Affiliates and Associated Physician Practices is amultiple site organization consisting of ambulatory clinics and hospital sitesin [place], [place], [place] and [place]. This disclosure is being madepursuant to the Care Everywhere program and may not contain all information available regarding this patient. 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
--- OUTSIDE RECORDS SUMMARY | 2025-01-02 09:42 | XMS_ITS | Encounter Summary ---
Author Organization [facility] Address [address] [facility] [place] [address] Care Team Providers Care State Editor Name Role Phone Ulisses Minor MD Primary Care Provide r Encounter Details Date Type Department Care Team (Late st Contact Info) Description 05/12/2011 [facility]NAL [facility] [place] [address] [place] [address] Social History Tobacco Use Types Packs/Day Years Used Date Smoking Tobacco: Never Smokeless Tobacco: Never Alcohol Use Standard Drinks/Week Comments Yes 0 (1 standard drink = 0.6 oz pur e alcohol) social/rare Comments No Sex and Gender Information Value Date Recorded Sex Assigned at Not on file 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
--- OUTSIDE RECORDS SUMMARY | 2025-01-02 09:42 | XMS_ITS | Clinical Summary ---
Author Organization [facility] Address [address] [place] [address] Care Team Providers Care Quality Assurance Test Program Manager Name Role Phone Lukas Minor NP Primary Care Provider [phone] Allergies Active Allergy Reactions Criticality Noted Date Comments Clarithromycin Diarrhea,Nausea And Vomiting Low 12/20/2015 Codeine Itching Low 02/08/2011 Other reaction(s): GI Discomfort Gatifloxacin Diarrhea,Nausea And Vomiting Low 12/20/2015 Metformin Nausea only Low 03/08/2018 Medications atorvastatin (LIPITOR) 40 mg tabletIndicat ions:hyperlip idemia Take 1 tablet (40 mg total) by mouth legal counsel before breakfast Active escitalopram (LEXAPRO) 20 mg [...] 1 tablet (88 mcg total) by mouth legal counsel before breakfast 3 018 Active multivitamin tabletIndicat [...] 1 tablet (10 mg total) by mouth legal counsel before breakfast Active traMADoL (ULTRAM) 50 mg [...] one sample pen exp 10/20, lot # [id number] [facility] [id number] Use as directed 1 each 025 2024 Discontinued(P atient Reported) adalimumab-ad az (Hyrimoz,CF, Pen) 40 mg/0.4 mL pen injector Inject 40 mg under the skin every 14 (fourteen) days 2.4 mL 025 2024 Discontinued Active Problems Problem Noted Date Diagnosed Date Other intervertebral disc degeneration, lumbar r egion 06/21/2023 Hemangioma of liver 01/17/2018 Overview (01/17/2018): Added automatically from request for surgery [id number] Cervical radiculopathy 09/27/2016 Allergic rhinitis due to [...] Description 12/30/2024 9:20 AM CDT Office Visit [facility] Rheumatology [address] [facility] [address] [place] [address] Meme Hassan, INSOLE RASPER Rheumatoid arthritis involving multiple sites with positive rheumatoid factor (HCC) (Primary Dx); High risk medication use 10/30/2024 2:53 PM CDT - 10/30/2024 3:33 PM CDT Emergency [facility] Emergency Department [facility] [place] [address] Closed fracture of malleolus of left ankle, initial encounter (Primary Dx) Discharge Disposition: Discharge to home or self care 10/30/[address] [facility] [address] [facility] [address] [place] [address] Rio Chaidez RPh 10/28/2024 3:45 PM CDT Office Visit [facility] Neurosurgery [address] [place] [address] Medical Office Building [address] [place] [address] Ross Mendoza PA Low back pain, non-specific (Primary Dx) 10/28/2024 3:08 PM CDT - 10/28/2024 11:59 PM CDT Hospital Encounter [facility] Radiology [address] [place] [address] [address] [place] [phone] Right lumbar radiculopathy; Spinal stenosis of lumbar region with neurogenic claudication Discharge Disposition: Discharge to home or self care 10/28/2024 Results Follow-Up [facility] Rheumatology [address] [facility] Medical Office Building [address] [place] [phone] Meme Hassan NP CBC with auto differential, Comprehensive metabolic panel, CRP (acute phase), Additional followed-up results: 5 10/24/[address] 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 N/A: Spine Lumbar Spine[employer] Inc 158-6171 / / Spineology Inc Graft Bone Tube 3/4 Filled Divrtd G2 276565 - [id number] - [id number] Implanted:Qty: 1 on 10/31/2023 by Lamine Noriega MD PhD at [facility] N/A: Spine Lumbar Spine[employer] Inc 04/30/2025 [id number] / [id number] 137 / Spineology Inc Set Spinal Salem Pedicular Fix Sys Strl Screw Pkg 670-0009 - [id number] Implanted:Qty: 4 on 10/31/2023 by Lamine Noriega MD PhD at [facility] N/A: Spine Lumbar Spine[employer] Inc 670-0007 / / Cerapedics Inc Allograft Bone Putty 2.5cc 700-212 - [id number] Implanted:Qty: 1 on 10/31/2023 by Lamine Noriega MD PhD at [facility] N/A: Spine Lumbar Cer[employer] Inc 10/25/2025 700-025 / / Spineology Inc Rubén Spinal 45mm Crv Salem Pedicular Fix Sys Strl 670-0789 - [id number] Implanted:Qty: 2 on 10/31/2023 by Lamine Noriega MD PhD at [facility] N/A: Spine Lumbar Spine[employer] Inc 670-4045 / / Spine[employer] Inc Graft Bone Tube 3/4 Filled Divrtd G2 012121 - [id number] - [id number] Implanted:Qty: 1 on 10/31/2023 by Lamine Noriega MD PhD at [facility] N/A: Spine Lumbar Spine[employer] Inc 04/30/2025 [id number] / [id number] 137 / Medtronic Inc Infuse Kit Xs Graft Bone Rhbmp-2 Bovine Collagen Lumbar Taper [id number] - [id number] Implanted:Qty: 1 on 10/31/2023 by Lamien Noriega MD PhD at [facility] N/A: Spine Lumbar Medtronic Inc 11/24/2024 [id number] / / Spineology Inc Cage Fusion Dual Chamb Large Interbody Exp System Optimesh 400-2620 - [id number] Implanted:Qty: 1 on 10/31/2023 by Lamine Noriega MD PhD at [facility] N/A: Spine Lumbar Spine[employer] Inc 05/28/2028 400-2620 / / [id number] Spine[employer] Inc Graft Bone Tube 3/4 Filled Divrtd G2 991829 - [id number] - [id number] Implanted:Qty: 1 on 10/31/2023 by Lamine Noriega MD PhD at [facility] N/A: Spine Lumbar Spine[employer] Inc 04/30/2025 [id number] / [id number] 137 / Spineology Inc Graft Bone Tube 3/4 Filled Divrtd G2 498517 - [id number] - [id number] Implanted:Qty: 1 on 10/31/2023 by Lamine Noriega MD PhD at [facility] N/A: Spine Lumbar Spine[employer] Inc 04/30/2025 [id number] / [id number] 137 / Procedures Procedure Name Priority Date/Time [...] BLOOD ORDERABLES Fi nal Result [facility] [address] [place] [address] * Erythrocyte sedimentation rate (12/17/2024 7:54 AM CDT) [facility] Erythrocyte sedimentation rate 2 < OR = 30 mm/h [facility] 12/17/2024 7:54 AM CDT 12/17/2024 7:54 AM CDT Narrative [facility] - 12/18/2024 4:22 AM CDT FASTING:YES FASTING: YES Meme Hassan INSOLE RASPER LAB BLOOD ORDERABLES Fi nal Result Performing Organization Address [facility]/ZIP Co de Phone Number [facility] [address] [place] [address] * CRP (acute phase) (12/17/2024 7:54 AM CDT) [facility] C-RP <3.0 <8.0 mg/L [facility] 12/17/2024 7:54 AM CDT 12/17/2024 7:54 AM CDT Narrative [facility] - 12/18/2024 4:22 AM CDT FASTING:YES FASTING: YES Meme Hassan NP LAB BLOOD ORDERABLES Fi nal Result Performing Organization Address [facility]/ZIP Co de Phone Number [facility] [address] [place] [address] * (ABNORMAL) Comprehensive metabolic panel (12/17/2024 7:54 AM CDT) [facility] Glucose 177(H) 65 - 99 mg/dL [facility] [...] AM CDT FASTING:YES FASTING: YES Meme Hassan INSOLE RASPER LAB BLOOD ORDERABLES Fi nal Result [facility] [address] [place] [address] * XR Foot Left 3 or More [...] Juve Boland M.D. NS: NS Report ID: [id number] Reading Location: [id number] Procedure Note Juve Boland MD - 10/30/2024 [...] Juve Boland M.D. NS: NS Report ID: [id number] Reading Location: [id number] [facility] JOY IMG XR PROCEDURES Final Re [...] Juve Boland M.D. NS: NS Report ID: [id number] Reading Location: [id number] Procedure Note Juve Boland MD - 10/30/2024 [...] Juve Boland M.D. NS: NS Report ID: [id number] Reading Location: [place] [address] [facility] JOY IMG XR PROCEDURES Final Re [...] auto differential (10/27/2024 8:52 AM CDT) Pathologist [facility] WBC 4.0 3.8 - 10.8 Thousand/u L [...] CDT FASTING:YES FASTING: YES us Meme Hassan INSOLE RASPER LAB BLOOD ORDERABLES Fi nal Result Performing Organization Address [facility] de Phone Number [facility] [address] [place] [address] * Erythrocyte sedimentation rate (10/27/2024 8:52 AM CDT) Erythrocyte sedimentation rate 2 < OR = 30 mm/h [facility] Blood 10/27/2024 8:52 AM CDT 10/27/2024 8:52 AM CDT Narrative [facility] - 10/28/2024 8:42 AM CDT FASTING:YES FASTING: YES us Meme Hassan NP LAB BLOOD ORDERABLES Fi nal Result Performing Organization Address [facility] de Phone Number [facility] [address] [place] [address] * CRP (acute phase) (10/27/2024 8:52 AM CDT) Pathologist [facility] C-RP <3.0 <8.0 mg/L [facility] Blood 10/27/2024 8:52 AM CDT 10/27/2024 8:52 AM CDT Narrative [facility] - 10/28/2024 8:42 AM CDT FASTING:YES FASTING: YES us Meme Hassan NP LAB BLOOD ORDERABLES Fi nal Result Performing Organization Address [facility] de Phone Number [facility] [address] [place] [address] * (ABNORMAL) Comprehensive metabolic panel (10/27/2024 8:52 [...] BLOOD ORDERABLES Fi nal Result [facility] [address] [place] [address] * (ABNORMAL) DIABETES EYE EXAM (02/28/2024 11:06 AM CDT) us Historical Provider HEALTH MAINTENANCE Edited Result - Final * Lipid panel (03/08/2018 1:30 PM CDT) Cholesterol 176 30 - 199 mg/dL [facility] Comment: Interpretive Data Ages < or = [...] on 2018. Triglycerides 125 <=149 mg/dL [facility] Comment: Interpretive Data Ages < or = [...] on 2018. HDL 55 >=40 mg/dL [facility] Comment: Interpretive Data Ages < or = [...] 2018. LDL, calculated 96 <=129 mg/dL [facility] Comment: Interpretive Data Ages < or = [...] on 2018. Non-HDL Cholesterol 121 mg/dL [facility] Comment: Interpretive Data Ages < or = [...] last revised on 2018. Chol/HDL ratio 3 [facility] Blood specimen (specimen) 03/08/2018 1:30 PM CDT 03/08/2018 3:30 PM CDT Narrative [facility] - 03/09/2018 1:00 AM CDT us Aurelio Massey MD LAB BLOOD ORDERABLES Final Result [facility] Department of Laboratories [employer], [place] [id number] * (ABNORMAL) Hemoglobin A1c (02/19/2018 3:42 PM CDT) Hgb A1C 10.1(H) 4.0 - 5.6 % [facility] Comment:Testing performed by : [facility], [address] [place] [address], [place]., [address] Estimated Average Glucose 243 mg/dL [facility] Comment: The ADA recommends reporting an estimated Average Glucose (eAG) with all Hemoglobin A1c results using the equation derived from a study of 507 normal and diabetic adults. Minority populations were underrepresented and children were not included. (Diabetes Care 31:2393-6558, 2008). The eAG is not equivalent to a fasting glucose. Testing performed by: [facility], [address] [place] [address]., [address] Blood specimen (specimen) 02/19/2018 3:42 PM CDT 02/19/2018 8:10 PM CDT Narrative [facility] - 02/19/2018 8:26 PM CDT us Meaghan Smith NP LAB BLOOD ORDERABL ES Final Result Performing Organization Address City/State/ZIP Co wa Phone Number [facility] [address] [facility]. Department [place] [address] from Last 3 Months or Most Recently Relevant to Health Maintenance Additional Health Concerns Infection Onset Date Last Indicated MDR gram neg/ESBL 10/15/2023 10/15/2023 [place] [address] [employer] ACCESS CHOICE ANTHEM ACCESS CHOICE Advance Directives For more information, please contact: [phone] * Full Code (Latest Code Status on File) Date Activated Date Inactivated Comments 10/31/2023 8:47 PM 11/01/2023 5:43 PM * Full Code Date Activated Date Inactivated Comments 03/08/2018 3:53 PM 03/10/2018 3:46 PM Care Teams Quality Assurance Test Program Manager Relationship Specialty [place] [address] [facility] [address] [place] [address] PCP - General Family Medicine 07/24/24
--- OUTSIDE RECORDS SUMMARY | 2025-01-02 09:42 | XMS_ITS | Clinical Summary ---
Author Organization [facility] Address [address], [facility] [address] [place] [address] Phone Care Team Providers Care Bagger Meat Name Role Phone Ulisses Minor MD Primary Care Provider + Micky Andino DO Unavailable [phone] Provider, Unknown Unavailable Unavailable Allergies Active [...] age to complete this topic [place] [address] [facility] [place] [address] Care Teams Bagger Meat Relationship Specialty Start Date End Date Ulisses Minor MD PCP - General Internal Medicine 12/28/17 Micky Andino DO Consulting Physician Oncology 12/28/17 Provider, Unknown UNKNOWN 01/15/18
--- OUTSIDE RECORDS SUMMARY | 2025-01-02 09:42 | XMS_ITS | Encounter Summary ---
Author Organization [facility] Address [address] [place] [address] Care Team Providers Care Sailing Instructor Name Role Phone Ulisses Minor MD Primary Care Provide r Encounter Details Date Type Department Care Team (Late st Contact Info) Description 06/02/2011 [facility] Visit [facility] [place] [address] [place] [id number] Social History Tobacco Use Types Packs/Day Years Used Date Smoking Tobacco: Never Smokeless Tobacco: Never Alcohol Use Standard Drinks/Week Comments Yes 0 (1 standard drink = 0.6 oz pur e alcohol) social/rare Comments No Sex and Gender Information Value Date Recorded Sex Assigned at Not on file Legal Sex Female 12:13 PM [employer] Gender Identity Not on file Sexual Orientation Not on file documented as of this encounter Plan of Treatment Not on file documented as of this encounter Visit Diagnoses Not on filedocumented in this encounter Care Teams Sailing Instructor Relationship Specialty Start Date End Date Ulisses Minor MD [facility] [place] [address] PCP - General Pediatrics 01/01/12 documented as of this encounter
[2025-01-02 10:03] LABS: Sodium 136 mmol/L (137-145)
== END 2025-01-02 09:40 | disposition home or self-care (01) ==
LOC: ANHSURGERY 09:39
PROVIDERS: Anesthesiology; PCP Pediatrics; Visit Provider Orthopaedic Surgery
DX: E87.1 Hypo-osmolality and hyponatremia (principal)
CPT/HCPCS: 36415; 84295